=== PATIENT | male | born 1935 | race Caucasian/White ===

== ENCOUNTER 2017-01-20 13:58 | Emergency (ER) | payer OTHER ==
[2017-01-20 14:08] VITALS: BP 166/76; PULSE 83; TEMP 98.6; BMI 25.7
--- NOTE | 2017-01-20 14:09 | PDOC ---
Rapid Medical Evaluation Chief Complaint: Urinary Problem Time Seen by Provider: 01/20/17 14:07 Medical Evaluation: Allergies Allergy/AdvReac Type Severity Reaction Status Date / Time No Known Allergies Allergy Verified 01/20/17 14:05 01/20/17 14:08 81 year old male with no known medical history (hasn't seen a doctor for 20 yrs ) presenting with burning on urination and difficulty urinating since July, worse today. No hematuria. One episode of "cold sweats" two days ago. No pain. Afebrile. -Ua/culture ordered -To FT for further evaluation
[2017-01-20 15:09] LABS: URINE APPEARANCE CLOUDY; URINE BILIRUBIN NEGATIVE (NEGATIVE); URINE COLOR DKYELLOW; URINE GLUCOSE (UA) NEGATIVE (NEGATIVE); URINE KETONE NEGATIVE (NEGATIVE); URINE NITRITE NEGATIVE (NEGATIVE); URINE UROBILINOGEN NEGATIVE E.U./dl (0.2-1.0)
[2017-01-20 15:16] LABS: URINE BLOOD 1+ (NEGATIVE); URINE LEUK ESTERASE 3+ (NEGATIVE); URINE PROTEIN 2+ (NEGATIVE)
[2017-01-20 15:20] LABS: URINE MUCUS FEW; URINE RBC 42 /hpf (0-3); URINE WBC 1365 /hpf (3-5)
--- NOTE | 2017-01-20 15:43 | PDOC ---
History of Present Illness - General Chief Complaint: Urinary Problem Stated Complaint: Urinary Problem Time Seen by Provider: 01/20/17 14:07 History Source: Patient, Family - History of Present Illness Timing/Duration: reports: getting worse Past History - Past Medical History Allergies/Adverse Reactions: Allergies Allergy/AdvReac Type Severity Reaction Status Date / Time No Known Allergies Allergy Verified 01/20/17 14:05 Home Medications: Ambulatory Orders Cephalexin [Keflex] 500 mg PO BID #14 capsule 01/20/17 Other medical history: NONE - Psycho/Social/Smoking Cessation Hx Anxiety: No Suicidal Ideation: No Smoking History: Never smoked Have you smoked in the past 12 months: No Information on smoking cessation initiated: No Hx Alcohol Use: No Drug/Substance Use Hx: No Substance Use Type: None Review of Systems - Review of Systems Constitutional: No: Fever, Weakness, Unexplained wgt Loss ABD/GI: No: Nausea, Vomiting : Yes: Dysuria, Frequency. No: Flank Pain, Hematuria, Testicular Mass, Testicular Swelling, Testicular Pain *Physical Exam - Vital Signs Last Vital Signs Temp Pulse Resp BP Pulse Ox 98.6 F 83 18 166/76 100 01/20/17 14:06 01/20/17 14:06 01/20/17 14:06 01/20/17 14:06 01/20/17 14:06 - Physical Exam General Appearance: Yes: Appropriately Dressed. No: Apparent Distress HEENT: positive: Normal Voice Neck: positive: Supple Respiratory/Chest: negative: Respiratory Distress Gastrointestinal/Abdominal: positive: Soft. negative: Tender Musculoskeletal: negative: CVA Tenderness Integumentary: positive: Dry, Warm Neurologic: positive: Fully Oriented, Alert, Normal Mood/Affect ED Treatment Course - LABORATORY CBC & Chemistry Diagram: 01/20/17 16:19 01/20/17 16:19 - ADDITIONAL ORDERS Additional order review: Laboratory Results 01/20/17 14:45 Urine Color Dkyellow Urine Appearance Cloudy Urine pH 8.0 Urine Protein 2+ H Urine Glucose (UA) Negative Urine Ketones Negative Urine Blood 1+ H Urine Nitrite Negative Urine Bilirubin Negative Urine Urobilinogen Negative Ur Leukocyte Esterase 3+ H Urine RBC 42 Urine WBC 1365 Triple Phos Crystals Rare Urine Mucus Few Medical Decision Making - Medical Decision Making 01/20/17 15:36 81 yo M, no known pmhx (has not seen a doctor in > 20 years), brought in by family for evaluation of discomfort with urination and associated hesitancy and frequency x 7 months. Patient states symptoms are gradually getting worse and so decided to come in for evaluation. Patient states he has never been evaluated for symptoms in the past. Denies any hematuria, testicular pain, swelling, urethral discharge, abdominal or back pain, nausea, vomiting, fever, chills or unexplained weight loss. Patient states he currently does not have a primary care physician See exam Chronic dysuria/hesitancy No medical eval in the past Concern for ?BPH given hx, r/o uti Will need outside w/u to r/o possible malignancy Well kyle and stable w/ unremarkable exam -ua/cx -labs -dispo pending 01/20/17 15:47 01/20/17 17:00 Labs unremarkable including creatinine. Dc w/ abx and referral to f/u this week 01/20/17 17:03 *DC/Admit/Observation/Transfer Diagnosis at time of Disposition: Urinary hesitancy - Discharge Dispostion Disposition: HOME Condition at time of disposition: Good - Prescriptions Prescriptions: Cephalexin [Keflex] 500 mg PO BID #14 capsule - Referrals Referrals: Kate Estrella MD [Primary Care Provider] - Manny Guerrero MD., [Staff Physician] - - Patient Instructions Printed Discharge Instructions: Urinary Tract Infection Additional Instructions: Your symptoms are possibly due to an enlarged prostate. You will need to follow up with urology for further evaluation. There was a possible sign of infection in your urine and you were started on antibiotics. Take medications as directed. Return to ER for worsening of symptoms, especially if you are unable to urinate
[2017-01-20 16:27] LABS: EOSINOPHIL 1.6 % (0-4.5); MCH 28.3 pg (25.7-33.7); MCHC 32.9 g/dl (32.0-35.9); MEAN CELL VOLUME 86.1 fl (80-96); MEAN PLT VOLUME 6.9 fl (7.5-11.1); NEUTROPHILS 79.2 % (42.8-82.8); PLATELET COUNT 378 K/MM3 (134-434); RDW 15.4 % (11.9-15.9); WHITE BLOOD COUNT 10.3 K/mm3 (4.0-10.0)
[2017-01-20 16:53] LABS: ALBUMIN 3.4 g/dl (3.4-5.0); BILIRUBIN,TOTAL 0.6 mg/dL (0.2-1.0); CALCIUM 8.5 mg/dL (8.5-10.1); COCKROFT - GAULT 43.56; CREATININE 1.3 mg/dL (0.7-1.3)
--- NOTE | 2017-01-20 17:18 | PDOC ---
*Physical Exam - Vital Signs Last Vital Signs Temp Pulse Resp BP Pulse Ox 98.6 F 83 18 166/76 100 01/20/17 14:06 01/20/17 14:06 01/20/17 14:06 01/20/17 14:06 01/20/17 14:06 ED Treatment Course - LABORATORY CBC & Chemistry Diagram: 01/20/17 16:19 01/20/17 16:19 - ADDITIONAL ORDERS Additional order review: Laboratory Results 01/20/17 01/20/17 16:19 14:45 Sodium 138 Potassium 4.6 Chloride 104 Carbon Dioxide 25 Anion Gap 9 BUN 25 H Creatinine 1.3 Creat Clearance w eGFR 52.85 Random Glucose 94 Calcium 8.5 Total Bilirubin 0.6 AST 36 ALT 38 Alkaline Phosphatase 54 Total Protein 7.0 Albumin 3.4 Urine Color Dkyellow Urine Appearance Cloudy Urine pH 8.0 Urine Protein 2+ H Urine Glucose (UA) Negative Urine Ketones Negative Urine Blood 1+ H Urine Nitrite Negative Urine Bilirubin Negative Urine Urobilinogen Negative Ur Leukocyte Esterase 3+ H Urine RBC 42 Urine WBC 1365 Triple Phos Crystals Rare Urine Mucus Few 01/20/17 16:19 RBC 4.61 MCV 86.1 MCHC 32.9 RDW 15.4 MPV 6.9 L Neutrophils % 79.2 Lymphocytes % 10.6 Monocytes % 7.6 Eosinophils % 1.6 Basophils % 1.0 *DC/Admit/Observation/Transfer Diagnosis at time of Disposition: Urinary hesitancy - Discharge Dispostion Disposition: HOME Condition at time of disposition: Good - Prescriptions Prescriptions: Cephalexin [Keflex] 500 mg PO BID #14 capsule - Referrals Referrals: Manny Guerrero MD., [Staff Physician] - Kate Estrella MD [Primary Care Provider] - - Patient Instructions Printed Discharge Instructions: Urinary Tract Infection Additional Instructions: Your symptoms are possibly due to an enlarged prostate. You will need to follow up with urology for further evaluation. There was a possible sign of infection in your urine and you were started on antibiotics. Take medications as directed. Return to ER for worsening of symptoms, especially if you are unable to urinate - Post Discharge Activity
== END 2017-01-20 17:17 | disposition home or self-care (01) ==
LOC: JERFT 13:58
DX: R39.11 Hesitancy of micturition (principal)
CPT/HCPCS: 36415; 80053; 81003; 81015; 85025; 87086; 87186; 99281-25

== ENCOUNTER 2018-10-31 12:57 | Inpatient (IN) | payer OTHER ==
--- NOTE | 2018-10-31 13:50 | PDOC ---
History of Present Illness - General Chief Complaint: Edema Stated Complaint: GROIN PAIN Time Seen by Provider: 10/31/18 13:32 History Source: Patient, Family (Nephew and nephew's fiance present at bedside.) Exam Limitations: No Limitations - History of Present Illness Initial Comments: HPI: 83 y/o male presenting to [facility] ER complaining of leg swelling, penis swelling, and shortness of breath. Pt states the symptoms started several months ago. Became concerned when noticing the genital swelling this morning. Endorses orthopnea, paroxysmal nocturnal dyspnea, and progressive bilateral lower extremity swelling. Sleeps on the floor most days. Has not follow up with PCP, Dr. Estrella, in several years. Has a h/o of HTN but has not taken medication in a long time. PCP: Dr. Luis Enrique Estrella Social Hx: - Works at [employer] - Tobacco: Denies - EtOH: Denies - Street drugs: Denies Medical Hx: - HTN, not medically managed - BPH s/p TURP Past History - Past Medical History Allergies/Adverse Reactions: Allergies Allergy/AdvReac Type Severity Reaction Status Date / Time No Known Allergies Allergy Verified 10/31/18 13:04 Home Medications: Ambulatory Orders NK [No Known Home Medication] 10/31/18 COPD: No HTN: Yes - Surgical History Other Surgical History: TURP - Suicide/Smoking/Psychosocial Hx Smoking History: Never smoked Have you smoked in the past 12 months: No Hx Alcohol Use: No Drug/Substance Use Hx: No Substance Use Type: None Review of Systems - Review of Systems Able to Perform ROS?: Yes Comments:: In addition to that documented in the HPI above, the additional ROS was obtained : Constitutional: Denies fevers or chills Head: Denies vision changes ENMT: Denies sore throat CV: Denies chest pain Resp: Per HPI GI: Denies vomiting or diarrhea : Denies painful urination MSK: Denies recent trauma Skin: Denies new rashes Neuro: Denies new numbness or tingling or weakness Endocrine: Denies polyuria Heme: Denies bleeding or bruising *Physical Exam - Vital Signs Last Vital Signs Temp Pulse Resp BP Pulse Ox 97.7 F 97 H 24 H 199/83 H 97 10/31/18 13:04 10/31/18 13:04 10/31/18 13:04 10/31/18 13:04 10/31/18 13:04 - Physical Exam Comments: Constitutional: Well-developed, well-nourished elderly adult male in no acute distress or obvious discomfort. Found semi-fowlers on hospital bed. Alert and oriented x4. Answered all questions appropriately and completely. Speech was non -labored, non-pressured. Observed walking through the department unassisted without obvious difficulty. Head: Normocephalic. No obvious external signs of trauma. Eyes: Sclerae white. Ears: Hearing grossly intact. Nose: No nasal discharge. Neck: Supple, trachea is midline. Cardiovascular / Chest: Regular rate and regular rhythm. No murmur, rubs, clicks, or gallops. Peripheral pulses: radial pulses full. 3+ pitting edema bilaterally to above knees and into the scrotum and penile shaft. Respiratory: Breathing unlabored. Equal chest rise and fall. Clear to auscultation bilaterally. Decreased in the bilateral lower lobes. Gastrointestinal: abdomen is soft, non-tender, non-distended. Hepatomegaly. No positive fluid wave. No keputs. Neuro: Alert and oriented. Moving all four extremities spontaneously. Gait normal. Skin: Warm, dry, and intact. Psych: Affect: appropriate. Mood: normal. : Genital exam revealed normally developed male genitalia. Circumcised penis. Generalized edema to scrotum and penis. Moderate Sedation - Procedure Monitoring Vital Signs: Procedure Monitoring Vital Signs Temperature 97.7 F 10/31/18 13:04 Pulse Rate 97 H 10/31/18 13:04 Respiratory Rate 24 H 10/31/18 13:04 Blood Pressure 199/83 H 10/31/18 13:04 O2 Sat by Pulse Oximetry (%) 97 10/31/18 13:04 ED Treatment Course - LABORATORY CBC & Chemistry Diagram: 10/31/18 14:14 10/31/18 14:14 Medical Decision Making - Medical Decision Making *Reviewed vital signs, nursing notes, and prior visit documentation (if available). 83 y/o male presenting with progressively worsening lower extremity edema, SOB, paroxysmal nocturnal dyspnea, and orthopnea. H/o of HTN but not adherent with medication. Poor medical follow up. Concern for acute on chronic CHF in setting of uncontrolled hypertension. CXR revealed blunting of costophrenic angles with increased vascular congestion per ED wet read. BNP significantly elevated. Troponin mildly elevated. EKG revealed ST elevation of 1mm in V2 and V3 with depression in V5 and V6. Does not meet STEMI criteria. Pt is also without chest pain or acute SOB. Suspect troponin elevation is secondary to demand. Low suspicion for acute ACS. 15:07 Telephone consultation with ALEC Simpson. Verbally appraised of the pts HPI, ED course, and current plan of management. Will admit pt to telemetry on inpatient status for Dr. Estrella. No additional orders requested. 15:[address] Hensley of cardiology service. Verbally appraised of the pts HPI, ED course, and current plan of management. Request pt be administered ASA, Lipitor, Lasix, and Metoprolol. May consider amlodipine if BP remains elevated. Will evaluate the pt. Consult order placed. *DC/Admit/Observation/Transfer Diagnosis at time of Disposition: Elevated troponin, Shortness of breath, Bilateral lower extremity edema, Scrotal edema, Elevated brain natriuretic peptide (BNP) level - Discharge Dispostion Condition at time of disposition: Fair Decision to Admit order: Yes - Referrals - Patient Instructions - Post Discharge Activity
--- NOTE | 2018-10-31 14:21 | PDOC ---
Attending Attestation - HPI HPI: 10/31/18 14:51 The patient is a 83 year old male with a significant past medical history of hypertension (non compliant with meds) who presents to the emergency department with leg swelling, penis swelling, and shortness of breath since earlier today. The patient reports that his symptoms began several months ago. He states that he became concerned when noticing the genital swelling this morning. Endorses orthopnea, paroxysmal nocturnal dyspnea, and progressive bilateral lower extremity swelling. Sleeps on the floor most days. Has not follow up with PCP, Dr. Estrella, in several years. PCP: Dr. Luis Enrique Estrella <Christopher Good - Last Filed: 10/31/18 14:51> - Resident Resident Name: Otis Cope - ED Attending Attestation I have performed the following: I have examined & evaluated the patient, The case was reviewed & discussed with the resident, I agree w/resident's findings & plan, Exceptions are as noted - Physicial Exam PE: 10/31/18 15:30 GENERAL: The patient is in no acute distress. ENT: Ears normal, nares patent, oropharynx clear without exudates. Moist mucous membranes. NECK: Normal range of motion, supple, no nuchal rigidity LUNGS: Breath sounds equal, basilar rhonchi, No wheezes HEART: Regular rate and rhythm, normal S1 and S2 without murmur, rub or gallop. ABDOMEN: Soft, nontender, normoactive bowel sounds. EXTREMITIES: Normal range of motion, bilateral lower extremity 3+ pitting edema. NEUROLOGICAL: Cranial nerves II through XII grossly intact. Normal speech. No focal neurological deficits. SKIN: Warm, Dry, normal turgor, no rashes or lesions noted. - Critical Care Time Total Critical Care Time: 60 Critical Care Statement: The care of this patient involved high complexity decision making to prevent further life threatening deterioration of the patient 's condition and/or to evaluate & treat vital organ system(s) failure or risk of failure. - Medical Decision Making 10/31/18 15:32 83 yo M presenting to the ER due to shortness of breath No chest pain Symptoms have been present for the past 3 days Pt states last night he had difficulty sleeping, he was restless 10/31/18 15:33 DD: CHF, ACS, Renal insufficiency Will do: Labs EKG Cardiology Laboratory Tests 10/31/18 10/31/1810/31/19 14:14 14:14 14:14 WBC 10.2 H Hgb 16.8 Hct 48.9 D Plt Count 261 D Sodium 137 Potassium 4.4 Chloride 106 Carbon Dioxide 23 BUN 24 H Creatinine 1.4 H Random Glucose 84 Creatine Kinase 510 H Creatine Kinase Index 4.0 CK-MB (CK-2) 20.9 H Troponin I 0.98 H* B-Natriuretic Peptide 61267.2 H Urine Blood Urine Nitrite Ur Leukocyte Esterase Urine WBC (Auto) Urine RBC (Auto) Urine Bacteria (Auto) 10/31/18 14:33 WBC Hgb Hct Plt Count Sodium Potassium Chloride Carbon Dioxide BUN Creatinine Random Glucose Creatine Kinase Creatine Kinase Index CK-MB (CK-2) Troponin I B-Natriuretic Peptide Urine Blood 1+ Urine Nitrite Negative Ur Leukocyte Esterase 1+ Urine WBC (Auto) 43 Urine RBC (Auto) 6 Urine Bacteria (Auto) 2.196 10/31/18 15:37 Trop elevated Cardiology consulted Recommends po antihypertensives Pt has no chest pain Will admit to tele <Maryam Fernández - Last Filed: 11/06/18 10:25> Attestations - Attestations 10/31/18 14:52 Documentation prepared by Christopher Good, acting as medical assisting instructor for Maryam Fernández MD. <Christopher Good - Last Filed: 10/31/18 14:51>
[2018-10-31 14:39] LABS: ALBUMIN 3.9 g/dl (3.4-5.0); ALK PHOS 97 U/L (45-117); ANION GAP 8 MMOL/L (8-16); BILIRUBIN,TOTAL 1.7 mg/dL (0.2-1); BLOOD UREA NITROGEN 24 mg/dL (7-18); CALCIUM 9.1 mg/dL (8.5-10.1); CHLORIDE 106 mmol/L (98-107); CO2 23 mmol/L (21-32); CREATININE 1.4 mg/dL (0.55-1.3); GLUCOSE,RANDOM 84 mg/dL (74-106); POTASSIUM 4.4 mmol/L (3.5-5.1); SGOT/AST 45 U/L (15-37); SGPT/ALT 33 U/L (13-61); SODIUM 137 mmol/L (136-145); TOT PROT 7.1 g/dl (6.4-8.2)
[2018-10-31 14:44] LABS: BASO % 0.8 % (0-2.0); EOS % 0.4 % (0-4.5); HEMATOCRIT 48.9 % (35.4-49); HEMOGLOBIN 16.8 GM/dL (11.7-16.9); LYMPH % 7.6 % (8-40); MCH 31.2 pg (25.7-33.7); MCHC 34.3 g/dl (32.0-35.9); MEAN CELL VOLUME 90.8 fl (80-96); MEAN PLT VOLUME 8.2 fl (7.5-11.1); NEUT % 86.2 % (42.8-82.8); PLATELET COUNT 261 K/MM3 (134-434); RBC 5.38 M/mm3 (4.00-5.60); RDW 17.8 % (11.9-15.9); WHITE BLOOD COUNT 10.2 K/mm3 (4.0-10.0)
[2018-10-31 14:57] LABS: EPI CELLS 1.4 /HPF (0-5); HYALINE CASTS 5 /hpf (0-8); PH,URINE 5.5 (5.0-8.0); URINE APPEARANCE CLEAR; URINE BACTERIA 2.196 /hpf (NEGATIVE); URINE BILIRUBIN NEGATIVE (<2.0 mg/dL); URINE COLOR YELLOW; URINE GLUCOSE (UA) NEGATIVE (NEGATIVE); URINE KETONE TRACE (NEGATIVE); URINE LEUK ESTERASE 1+ (NEGATIVE); URINE NITRITE NEGATIVE (NEGATIVE); URINE PROTEIN 3+ (NEGATIVE); URINE RBC 6 /hpf (0-4); URINE WBC 43 /hpf (0-5)
[2018-10-31] MEDS ORDERED: FUROSEMIDE 40 MG/4 ML INJECTABLE VIAL IVPUSH ONE (15:13)
[2018-10-31] MEDS ORDERED: METOPROLOL TARTRATE 50 MG TABLET (FP) PO ONE (15:13)
[2018-10-31] MEDS ORDERED: ASPIRIN 81 MG CHEWABLE TABLETS PO ONE (15:13)
[2018-10-31] MEDS ORDERED: ATORVASTATIN CA 40 MG TABLET (FP) PO ONE (15:13)
[2018-10-31] MEDS ORDERED: ATORVASTATIN CA 10 MG TABLET (FP) ONE (15:17)
[2018-10-31] MEDS ORDERED: ASPIRIN 81 MG CHEWABLE TABLETS ONE (15:17)
[2018-10-31] MEDS ORDERED: METOPROLOL TARTRATE 50 MG TABLET (FP) ONE (15:17)
[2018-10-31] MEDS ORDERED: FUROSEMIDE 40 MG/4 ML INJECTABLE VIAL ONE (15:17)
[2018-10-31 16:37] LABS: INR 1.38 (0.82-1.09); PROTHROMBIN TIME (PATIENT) 15.3 SEC (10.2-13.0)
--- NOTE | 2018-10-31 17:04 | EKG ---
Test Reason : Blood Pressure : / mmHG Vent. Rate : 092 BPM Atrial Rate : 092 BPM P-R Int : 166 ms QRS Dur : 094 ms QT Int : 404 ms P-R-T Axes : 059 -29 104 degrees QTc Int : 499 ms SINUS RHYTHM WITH OCCASIONAL PREMATURE VENTRICULAR COMPLEXES AND PREMATURE ATRIAL COMPLEXES POSSIBLE LEFT ATRIAL ENLARGEMENT PROLONGED QT ABNORMAL ECG NO PREVIOUS ECGS AVAILABLE Confirmed by MAGDI GARCIAS MD ([id number]) on 10/31/2018 5:03:58 PM Referred By: Confirmed By:MAGDI GARCIAS MD
--- NOTE | 2018-10-31 19:56 | HP ---
Admitting History and Physical - Admission Chief Complaint: SOB and B/L LE swelling History of Present Illness: Patient is an 83 y/o male with past medical history of HTN (non-compliant with meds) who presented to ER with complaints of worsening SOB with exertion for 3 weeks and worsening lower extremity swelling for 1 week. Patient became alarmed this morning when he noticed penile swelling. Has not followed up with PCP Dr. Estrella in several years. History Source: Patient Limitations to Obtaining History: No Limitations - Past Medical History Cardiovascular: Yes: HTN - Smoking History Smoking history: Never smoked Have you smoked in the past 12 months: No - Alcohol/Substance Use Hx Alcohol Use: No - Social History Usual Living Arrangement: Yes: Other (with sister) ADL: Independent Home Medications - Allergies Allergies/Adverse Reactions: Allergies Allergy/AdvReac Type Severity Reaction Status Date / Time No Known Allergies Allergy Verified 10/31/18 13:04 - Home Medications Home Medications: Ambulatory Orders NK [No Known Home Medication] 10/31/18 Review of Systems - Review of Systems Constitutional: reports: No Symptoms Eyes: reports: No Symptoms HENT: reports: No Symptoms Neck: reports: No Symptoms Cardiovascular: reports: Edema, Palpitations, Shortness of Breath Respiratory: reports: Cough, SOB, SOB on Exertion Gastrointestinal: reports: No Symptoms Genitourinary: reports: Other (hesistency) Musculoskeletal: reports: Muscle Weakness Integumentary: reports: No Symptoms Neurological: reports: No Symptoms Endocrine: reports: No Symptoms Hematology/Lymphatic: reports: No Symptoms Psychiatric: reports: No Symptoms Physical Examination Vital Signs: Vital Signs Temperature 97.7 F 10/31/18 13:04 Pulse Rate 71 10/31/18 17:28 Respiratory Rate 16 10/31/18 16:25 Blood Pressure 172/105 H 10/31/18 16:25 O2 Sat by Pulse Oximetry (%) 99 10/31/18 17:28 Constitutional: Yes: No Distress, Calm Eyes: Yes: Conjunctiva Clear HENT: Yes: Atraumatic Cardiovascular: Yes: Regular Rate and Rhythm Respiratory: Yes: On Nasal O2, Rhonchi (B/L) Gastrointestinal: Yes: Normal Bowel Sounds, Soft Renal/: Yes: Other (penile swelling) Extremities: Yes: WNL Edema: Yes Edema: LLE: 3+, RLE: 3+ Neurological: Yes: Alert, Oriented Psychiatric: Yes: Alert, Oriented Labs: CBC, BMP 10/31/18 14:14 10/31/18 14:14 Troponin, BNP 10/31/18 10/31/18 10/31/18 14:14 14:14 17:10 Troponin I 0.98 H* 0.97 H* B-Natriuretic Peptide 27777.2 H Imaging - Results Chest X-ray: Report Reviewed Problem List - Problems (1) Bilateral lower extremity edema Assessment/Plan: -start on furosemide IVP--will monitor renal function -2/2 new onset CHF? -cardiology and pulm consult placed -echo ordered -BNP ,615--will monitor for downtrend -1L fluid restriction -daily weights -strict I&O Code(s): R60.0 - LOCALIZED EDEMA (2) Elevated brain natriuretic peptide (BNP) level Assessment/Plan: -BNP 615--will monitor for downtrend -cardiology and pulmonary consult placed Code(s): R79.89 - OTHER SPECIFIED ABNORMAL FINDINGS OF BLOOD CHEMISTRY (3) Elevated troponin Assessment/Plan: trop x 2 0.98, 0.97 -tele monitoring -cardio consult Code(s): R74.8 - ABNORMAL LEVELS OF OTHER SERUM ENZYMES (4) Shortness of breath Assessment/Plan: -pulm consult placed -O2 via NC prn for SOB -albuterol neb prn -keep SpO2 >90% Code(s): R06.02 - SHORTNESS OF BREATH (5) Urinary hesitancy Assessment/Plan: -check PSA -pt sts had prostate scraping in past--bph? Code(s): R39.11 - HESITANCY OF MICTURITION (6) HTN (hypertension) Assessment/Plan: -cardiology consult placed -furosemide IVP -start on amlodipine Code(s): I10 - ESSENTIAL (PRIMARY) HYPERTENSION Assessment/Plan see problem list dvt ppx
[2018-10-31] MEDS ORDERED: HEPARIN NA (PORCINE) 5,000 UNITS/ML 1ML VIAL SQ SCH (22:00)
[2018-11-01] MEDS ORDERED: METOPROLOL TARTRATE 25 MG TABLET (FP) PO SCH (06:30)
[2018-11-01] MEDS ORDERED: ASPIRIN COATED 81 MG TABLET.EC PO SCH (06:30)
[2018-11-01] MEDS: FUROSEMIDE 40 MG/4 ML INJECTABLE VIAL IVPUSH SCH (06:50)
[2018-11-01] MEDS: HEPARIN NA (PORCINE) 5,000 UNITS/ML 1ML VIAL SQ SCH ×2 (06:50→22:08)
[2018-11-01] MEDS: amLODIPine BESYLATE 2.5 MG TABLET (FP) PO SCH (06:50)
[2018-11-01] MEDS: ASPIRIN COATED 81 MG TABLET.EC PO SCH (06:50)
[2018-11-01 07:36] LABS: BASO % 0.7 % (0-2.0); EOS % 0.9 % (0-4.5); HEMATOCRIT 46.8 % (35.4-49); LYMPH % 9.4 % (8-40); MCH 30.9 pg (25.7-33.7); MCHC 34.3 g/dl (32.0-35.9); MEAN CELL VOLUME 90.2 fl (80-96); MEAN PLT VOLUME 8.1 fl (7.5-11.1); MONO % 6.2 % (3.8-10.2); NEUT % 82.8 % (42.8-82.8); PLATELET COUNT 240 K/MM3 (134-434); RBC 5.18 M/mm3 (4.00-5.60); RDW 17.7 % (11.9-15.9); WHITE BLOOD COUNT 8.4 K/mm3 (4.0-10.0)
[2018-11-01 07:42] LABS: ALBUMIN 3.3 g/dl (3.4-5.0); ALK PHOS 87 U/L (45-117); ANION GAP 8 MMOL/L (8-16); BILIRUBIN,TOTAL 1.6 mg/dL (0.2-1); BLOOD UREA NITROGEN 26 mg/dL (7-18); CALCIUM 8.6 mg/dL (8.5-10.1); CHLORIDE 107 mmol/L (98-107); CHOLESTEROL 155 mg/dL (50-200); CO2 25 mmol/L (21-32); CREATININE 1.6 mg/dL (0.55-1.3); GLUCOSE,RANDOM 75 mg/dL (74-106); HDL CHOLESTEROL 48 mg/dL (40-60); MAGNESIUM 2.3 mg/dL (1.8-2.4); N-TERMINAL BNP 18448.6 pg/ml (5-450); PHOSPHOROUS 3.7 mg/dL (2.5-4.9); POTASSIUM 3.9 mmol/L (3.5-5.1); SGOT/AST 33 U/L (15-37); SGPT/ALT 27 U/L (13-61); SODIUM 140 mmol/L (136-145); TOT PROT 6.2 g/dl (6.4-8.2); TRIGLYCERIDES 64 mg/dL (0-150)
--- NOTE | 2018-11-01 11:22 | CON.CARD ---
Consult Consult Specialty:: Cardiology Referred by:: Fei Reason for Consultation:: CHF. +Troponins - History of Present Illness Chief Complaint: SOB. LE edema and scrotal edema History of Present Illness: Mr. Bhakta is a 83 year old male with a pmhx of htn (off meds for years) and ? prostate issue who has not seen doctors in years who presents with LE edema, scrotal edema, and sob. Patient says that for last few months he has been noticing sob and orthopnea which has been progressing. Also noticed LE edema which was worsening. He came to the ER because he noticed scrotal edema. No chest pain at all and no worsening sob or palpitations day of admission. Currently very comfortable BNP 14k Trop 1.0 Ck 500 -> 253 Cr 1.4 ->1.6 EKG: sinus rhythm with pvc's, lateral ST abnormalities BP very elevated at 190s-108 on admission. - History Source History Provided By: Patient, Medical Record - Past Medical History Cardio/Vascular: Yes: HTN - Alcohol/Substance Use Hx Alcohol Use: No - Smoking History Smoking history: Never smoked Have you smoked in the past 12 months: No - Social History ADL: Independent Home Medications - Allergies Allergies/Adverse Reactions: Allergies Allergy/AdvReac Type Severity Reaction Status Date / Time No Known Allergies Allergy Verified 10/31/18 13:04 - Home Medications Home Medications: Ambulatory Orders NK [No Known Home Medication] 10/31/18 Vital Signs: Vital Signs Temperature 98.2 F 11/01/18 10:57 Pulse Rate 72 11/01/18 10:57 Respiratory Rate 20 11/01/18 10:57 Blood Pressure 169/94 11/01/18 10:57 O2 Sat by Pulse Oximetry (%) 98 11/01/18 09:00 Constitutional: Yes: No Distress Respiratory: Yes: Rales (bibasilar ales) Gastrointestinal: Yes: Soft Cardiovascular: Yes: Regular Rate and Rhythm JVD: Yes Carotid Bruit: No PMI: Non-Displaced Heart Sounds: Yes: S1, S2 Murmur: Yes: Systolic Murmur (+2/6 HSM apex) Edema: Yes Edema: LLE: 1+, RLE: 1+ - Other Data Labs, Other Data: CBC, BMP 11/01/18 06:00 11/01/18 06:00 INR, PTT INR 1.38 (0.82-1.09) H 10/31/18 14:14 Troponin, BNP 10/31/18 10/31/18 10/31/18 14:14 14:14 17:10 Troponin I 0.98 H* 0.97 H* B-Natriuretic Peptide 46261.2 H 11/01/18 11/01/18 00:25 06:00 Troponin I 1.00 H* 1.06 H* B-Natriuretic Peptide 92744.6 H Troponin, BNP 10/31/18 10/31/18 10/31/18 14:14 14:14 17:10 Troponin I 0.98 H* 0.97 H* B-Natriuretic Peptide 57813.2 H 11/01/18 11/01/18 00:25 06:00 Troponin I 1.00 H* 1.06 H* B-Natriuretic Peptide 81822.6 H Imaging - Results Chest X-ray: Report Reviewed EKG: Image Reviewed Assessment/Plan Mr. Bhakta is a 83 year old male with a pmhx of htn (off meds for years) and ? prostate issue who has not seen doctors in years who presents with LE edema, scrotal edema, and sob. Patient says that for last few months he has been noticing sob and orthopnea which has been progressing. Also noticed LE edema which was worsening. He came to the ER because he noticed scrotal edema. No chest pain at all and no worsening sob or palpitations day of admission. Currently very comfortable BNP 14k Trop 1.0 Ck 500 -> 253 Cr 1.4 ->1.6 EKG: sinus rhythm with pvc's, lateral ST abnormalities BP very elevated at 190s-108 on admission. 1) Systolic CHF and positive cardiac enzymes. -Patient appears to have been having worsening CHF symptoms last few months. His troponin is likely due to CHF as level 1.0 is pretty much unchanged on 3 checks but possible ischemic component. CK was 500 on admission than 253. EKG with lateral ST abnormalities. Patient with no chest pain and no acute sob. He came in cause noticed scrotal swelling. For this reason and since bp's very uncontrolled will not acutely anticoagluate. Monitor on tele -Continue furosemide IV 40mg daily and monitor bun/cr and lytes along with I/O's -Would start metoprolol xl 50mg daily -Currently on amlodipine 2.5mg daily for bp. Plan for echocardiogram to evaluate LVEF and mitral valve. Will likely plan to change amlodipine to arjun-i/ arb once can establish that his Cr is stable since no previous levels and today is 1.6 -Will likely need an eventual ischemic evaluation. Aspirin 81mg daily. Atorvastatin 40mg daily. Will follow patient with you
--- NOTE | 2018-11-01 14:17 | CON.PULM ---
Consult Consult Specialty:: PULMONARY Referred by:: DAVI Reason for Consultation:: SOB - History of Present Illness Chief Complaint: SOB History of Present Illness: 83 y/o male presenting to [facility] complaining of leg and scrotal edema, and shortness of breath. Pt states the symptoms started several months ago. Became concerned when noticing the genital swelling this morning. Endorses orthopnea, paroxysmal nocturnal dyspnea, and progressive bilateral lower extremity swelling. Sleeps on the floor most days. Has not follow up with PCP, Dr. Estrella , in several years. Has a h/o of HTN but has not taken medication in a long time. 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 No: AFIB Pulmonary: No: COPD Gastrointestinal: No: Ascites Hepatobiliary: No: Cirrhosis Renal/: No: Renal Failure Heme/Onc: No: Anemia - Alcohol/Substance Use Hx Alcohol Use: No - Smoking History Smoking history: Never smoked Have you smoked in the past 12 months: No - Social History ADL: Independent Home Medications - Allergies Allergies/Adverse Reactions: Allergies Allergy/AdvReac Type Severity Reaction Status Date / Time No Known Allergies Allergy Verified 10/31/18 13:04 - Home Medications Home Medications: Ambulatory Orders NK [No Known Home Medication] 10/31/18 Family Disease History - Family Disease History Family History: Unremarkable Review of Systems - Review of Systems Cardiovascular: reports: Edema. denies: Chest Pain Respiratory: reports: Exercise Intolerance, Orthopnea, SOB on Exertion. denies : Hemoptysis, Wheezing Physical Exam Vital Sings: Vital Signs Temperature 98.2 F 11/01/18 10:57 Pulse Rate 72 11/01/18 10:57 Respiratory Rate 20 11/01/18 10:57 Blood Pressure 169/94 11/01/18 10:57 O2 Sat by Pulse Oximetry (%) 98 11/01/18 09:00 Constitutional: Yes: Calm Eyes: Yes: EOM Intact HENT: Yes: Normocephalic Neck: Yes: Trachea Midline Cardiovascular: Yes: S1, S2 Respiratory: Yes: Diminished Gastrointestinal: Yes: Normal Bowel Sounds Renal/: Yes: Scrotal Edema Edema: LLE: 2+, RLE: 2+ Labs: CBC, BMP 11/01/18 06:00 11/01/18 06:00 Imaging - Results Chest X-ray: Report Reviewed, Image Reviewed EKG: Report Reviewed, Image Reviewed Problem List - Problems (1) CHF (congestive heart failure) Code(s): I50.9 - HEART FAILURE, UNSPECIFIED (2) Bilateral lower extremity edema Code(s): R60.0 - LOCALIZED EDEMA (3) Elevated brain natriuretic peptide (BNP) level Code(s): R79.89 - OTHER SPECIFIED ABNORMAL FINDINGS OF BLOOD CHEMISTRY (4) Elevated troponin Code(s): R74.8 - ABNORMAL LEVELS OF OTHER SERUM ENZYMES (5) HTN (hypertension) Code(s): I10 - ESSENTIAL (PRIMARY) HYPERTENSION (6) Scrotal edema Code(s): N50.89 - OTHER SPECIFIED DISORDERS OF THE MALE GENITAL ORGANS (7) Shortness of breath Code(s): R06.02 - SHORTNESS OF BREATH Assessment/Plan chf/lvd may be on basis of nonischemic cardiomyopathy due to longstanding untreated htn would check echo cycle trops (elevation likely due to demand) diuretics/dvt prophylaxsis/o2 supplementation as needed daily weights will follow Hugo MORA MD
--- NOTE | 2018-11-01 17:21 | PN ---
Progress Note, Physician Chief Complaint: Systolic CHF Elevated Troponin - Current Medication List Current Medications: Active Medications Amlodipine Besylate (Norvasc -) 2.5 mg PO DAILY [facility] Last Admin: 11/01/18 06:50 Dose: 2.5 mg Aspirin (Ecotrin -) 81 mg PO DAILY [facility] Last Admin: 11/01/18 06:50 Dose: 81 mg Furosemide (Lasix Injection -) 40 mg IVPUSH DAILY [facility] Last Admin: 11/01/18 06:50 Dose: 40 mg Heparin Sodium (Porcine) (Heparin -) 5,000 unit SQ BID [facility] Last Admin: 11/01/18 06:50 Dose: 5,000 unit - Objective Vital Signs: Vital Signs Temperature 98.9 F 11/01/18 14:00 Pulse Rate 89 11/01/18 14:00 Respiratory Rate 20 11/01/18 14:00 Blood Pressure 146/70 11/01/18 14:00 O2 Sat by Pulse Oximetry (%) 98 11/01/18 09:00 Constitutional: Yes: No Distress, Calm Eyes: Yes: Conjunctiva Clear HENT: Yes: Atraumatic Cardiovascular: Yes: Regular Rate and Rhythm Respiratory: Yes: Regular, On Nasal O2, Rales Gastrointestinal: Yes: Normal Bowel Sounds, Soft Musculoskeletal: Yes: Muscle Weakness Extremities: Yes: WNL Edema: Yes Edema: LLE: 1+, RLE: 2+ Neurological: Yes: Alert, Oriented Psychiatric: Yes: Alert, Oriented Labs: CBC, BMP 11/01/18 06:00 11/01/18 06:00 INR, PTT INR 1.38 (0.82-1.09) H 10/31/18 14:14 CBC WBC 8.4 K/mm3 (4.0-10.0) 11/01/18 06:00 RBC 5.18 M/mm3 (4.00-5.60) 11/01/18 06:00 Hgb 16.0 GM/dL (11.7-16.9) 11/01/18 06:00 Hct 46.8 % (35.4-49) 11/01/18 06:00 MCV 90.2 fl (80-96) 11/01/18 06:00 MCH 30.9 pg (25.7-33.7) 11/01/18 06:00 MCHC 34.3 g/dl (32.0-35.9) 11/01/18 06:00 RDW 17.7 % (11.9-15.9) H 11/01/18 06:00 Plt Count 240 K/MM3 (134-434) 11/01/18 06:00 MPV 8.1 fl (7.5-11.1) 11/01/18 06:00 Absolute Neuts (auto) 7.0 K/mm3 (1.5-8.0) 11/01/18 06:00 Neutrophils % 82.8 % (42.8-82.8) 11/01/18 06:00 Lymphocytes % 9.4 % (8-40) D 11/01/18 06:00 Monocytes % 6.2 % (3.8-10.2) 11/01/18 06:00 Eosinophils % 0.9 % (0-4.5) D 11/01/18 06:00 Basophils % 0.7 % (0-2.0) 11/01/18 06:00 Nucleated RBC % 0 % (0-0) 11/01/18 06:00 Troponin, BNP 10/31/18 11/01/18 11/01/18 17:10 00:25 06:00 Troponin I 0.97 H* 1.00 H* 1.06 H* B-Natriuretic Peptide 13174.6 H Problem List - Problems (1) Bilateral lower extremity edema Assessment/Plan: -start on furosemide IVP--will monitor renal function -2/2 new onset CHF? -cardiology and pulm on board -echo ordered -BNP 18,000 -1L fluid restriction -daily weights -strict I&O Code(s): R60.0 - LOCALIZED EDEMA (2) Elevated brain natriuretic peptide (BNP) level Assessment/Plan: -BNP 18,000--will monitor for downtrend -cardiology and pulmonary on board Code(s): R79.89 - OTHER SPECIFIED ABNORMAL FINDINGS OF BLOOD CHEMISTRY (3) Elevated troponin Assessment/Plan: troponin 1.06-will continue to trend -tele monitoring -cardio on board Code(s): R74.8 - ABNORMAL LEVELS OF OTHER SERUM ENZYMES (4) Shortness of breath Assessment/Plan: -pulm consult placed -O2 via NC prn for SOB -albuterol neb prn -keep SpO2 >90% Code(s): R06.02 - SHORTNESS OF BREATH (5) Urinary hesitancy Assessment/Plan: -PSA pending -pt sts had prostate scraping in past--bph? Code(s): R39.11 - HESITANCY OF MICTURITION (6) HTN (hypertension) Assessment/Plan: -cardiology consult placed -furosemide IVP -start on amlodipine and metoprolol Code(s): I10 - ESSENTIAL (PRIMARY) HYPERTENSION (7) CHF (congestive heart failure) Assessment/Plan: -start on furosemide IVP--will monitor renal function -cardiology and pulm on board -echo ordered -BNP 18,000 -1L fluid restriction -daily weights -strict I&O Code(s): I50.9 - HEART FAILURE, UNSPECIFIED
[2018-11-01] MEDS ORDERED: RAMIPRIL 5 MG CAPSULE (FP) PO ONE (20:41)
[2018-11-02] MEDS: amLODIPine BESYLATE 2.5 MG TABLET (FP) PO SCH ×2 (06:28→11:06)
[2018-11-02 06:43] LABS: HEMATOCRIT 46.1 % (35.4-49); HEMOGLOBIN 16.1 GM/dL (11.7-16.9); MCH 31.7 pg (25.7-33.7); MCHC 34.9 g/dl (32.0-35.9); MEAN CELL VOLUME 90.8 fl (80-96); MEAN PLT VOLUME 8.2 fl (7.5-11.1); PLATELET COUNT 228 K/MM3 (134-434); RBC 5.07 M/mm3 (4.00-5.60); RDW 17.2 % (11.9-15.9); WHITE BLOOD COUNT 8.8 K/mm3 (4.0-10.0)
[2018-11-02 07:16] LABS: ALK PHOS 81 U/L (45-117); ANION GAP 9 MMOL/L (8-16); BLOOD UREA NITROGEN 31 mg/dL (7-18); CALCIUM 8.5 mg/dL (8.5-10.1); CHLORIDE 107 mmol/L (98-107); CO2 25 mmol/L (21-32); CREATININE 1.8 mg/dL (0.55-1.3); GLUCOSE,RANDOM 88 mg/dL (74-106); N-TERMINAL BNP 14323.5 pg/ml (5-450); POTASSIUM 3.9 mmol/L (3.5-5.1); SGOT/AST 28 U/L (15-37); SGPT/ALT 22 U/L (13-61); SODIUM 141 mmol/L (136-145); TOT PROT 5.8 g/dl (6.4-8.2)
--- NOTE | 2018-11-02 09:43 | PN ---
Progress Note, Physician - Current Medication List Current Medications: Active Medications Amlodipine Besylate (Norvasc -) 2.5 mg PO DAILY [facility] Last Admin: 11/02/18 06:28 Dose: 2.5 mg Aspirin (Ecotrin -) 81 mg PO DAILY [facility] Last Admin: 11/01/18 06:50 Dose: 81 mg Furosemide (Lasix Injection -) 40 mg IVPUSH DAILY [facility] Last Admin: 11/01/18 06:50 Dose: 40 mg Heparin Sodium (Porcine) (Heparin -) 5,000 unit SQ BID [facility] Last Admin: 11/01/18 22:08 Dose: 5,000 unit - Objective Vital Signs: Vital Signs Temperature 98.3 F 11/02/18 09:00 Pulse Rate 80 11/02/18 09:00 Respiratory Rate 20 11/02/18 09:00 Blood Pressure 150/99 11/02/18 09:00 O2 Sat by Pulse Oximetry (%) 97 11/02/18 09:00 Cardiovascular: Yes: Murmur, S1, S2 Respiratory: Yes: On Nasal O2, Rales Gastrointestinal: Yes: Normal Bowel Sounds, Soft Edema: Yes Labs: CBC, BMP 11/02/18 05:30 11/02/18 05:30 INR, PTT INR 1.38 (0.82-1.09) H 10/31/18 14:14 Problem List - Problems (1) CHF (congestive heart failure) Assessment/Plan: -furosemide IVP--will monitor renal function -cardiology -echo ordered -BNP 18,000 -1L fluid restriction -daily weights -strict I&O -BNP 18,000--will monitor for downtrend -O2 via NC prn for SOB -keep SpO2 >90% Code(s): I50.9 - HEART FAILURE, UNSPECIFIED (2) Elevated troponin Assessment/Plan: -troponin elevated-will continue to trend -tele monitoring -cardio on board Code(s): R74.8 - ABNORMAL LEVELS OF OTHER SERUM ENZYMES (3) Pleural effusion Assessment/Plan: -ON DIURETICS -PULM AND CARDIO ON BOARD Code(s): J90 - PLEURAL EFFUSION, NOT ELSEWHERE CLASSIFIED (4) HTN (hypertension) Assessment/Plan: -cardiology consult placed -furosemide IVP -on amlodipine and metoprolol Code(s): I10 - ESSENTIAL (PRIMARY) HYPERTENSION (5) Urinary hesitancy Assessment/Plan: -PSA -pt sts had prostate scraping in past--bph Code(s): R39.11 - HESITANCY OF MICTURITION
--- NOTE | 2018-11-02 10:29 | CONSULT ---
Consult - text type - Consultation Consultation Note: Renal consult for [place]TON vs. CKD This is a 83 year old gentleman with hx of Hypertension (not on medications) who presented with complaints of SOB/THORNE and LE edmea and admitted for acute CHF with Cr of 1.8. Pt reports having swelling in his legs for a few weeks. Denies any hx of CKD, kidney stones, urine infections. Denies any prostate problems but does have symptoms of incomplete voiding. No flank pain, dysuria. SOB is now resolved, Leg edema still persists. Making more urine now. No NSIAD use, no recent contrast exposure, recent Abx use, or skin rash. No fever, chillls, N/V/D. PMhx: as above Allergies: NKDA Family Hx: NC Social Hx: No T/A/D ROS: as per HPI Home Medications Medication Instructions Recorded NK [No Known Home Medication] 10/31/18 Vital Signs Temperature 98.3 F 11/02/18 09:00 Pulse Rate 80 11/02/18 09:00 Respiratory Rate 20 11/02/18 09:00 Blood Pressure 150/99 11/02/18 09:00 O2 Sat by Pulse Oximetry (%) 97 11/02/18 09:00 Intake & Output 10/30/18 10/31/18 11/01/18 11/02/18 23:59 23:59 23:59 23:59 Intake Total 240 980 0 Output Total 500 1150 400 Balance -260 -170 -400 Weight 67.404 kg 66.406 kg 66.95 kg NAD awake and alert neck supple, no JVD RRR, no M/R CTA, no rales soft NT/ND no bladder distension trace to 1+ edema in ankles, no clubbing or cyanosis CBC, BMP 11/02/18 05:30 11/02/18 05:30 Laboratory Tests 10/31/18 11/01/18 11/02/18 14:14 06:00 05:30 Creatinine 1.4 H 1.6 H 1.8 H Laboratory Tests 10/31/18 14:33 Ur Specific [place] 1.020 Urine Protein 3+ Urine Ketones Trace H Urine Blood 1+ Urine Urobilinogen 1.0 Urine WBC (Auto) 43 Urine RBC (Auto) 6 Urine Casts (Auto) 5 Laboratory Tests 11/02/18 05:30 Calcium 8.5 B-Natriuretic Peptide 57645.5 H Current Medications Amlodipine Besylate (Norvasc -) 2.5 mg PO DAILY [facility] Last Admin: 11/02/18 06:28 Dose: 2.5 mg Aspirin (Ecotrin -) 81 mg PO DAILY [facility] Last Admin: 11/01/18 06:50 Dose: 81 mg Furosemide (Lasix Injection -) 40 mg IVPUSH DAILY [facility] Last Admin: 11/01/18 06:50 Dose: 40 mg Heparin Sodium (Porcine) (Heparin -) 5,000 unit SQ BID [facility] Last Admin: 11/01/18 22:08 Dose: 5,000 unit 83 year old gentleman with hx of Hypertension (not on medications) who presented with complaints of SOB/THORNE and LE edmea and admitted for acute CHF with Cr of 1.8. #CLAYTON vs CKD #Proteinuira #Hypertension #CHF #LE edema Baseline renal function unclear at the present time however Cr is rising here but may be due to cardio-renal syndrome vs. fluid shifts from diuresis vs. NANDA Check urine studies for FeUrea, UPCR and urine Eosinophils continue IV Lasix for now as pt still has edema would not introduce NANDA/ARB untril pt is evolemic and off IV diuresis check kidney and bladder US f/u PSA Goal BP < 140/90, titrate Amlodipine as needed Dose all meds for CrCl < 30 Thank you Kelvin Ram DO
--- NOTE | 2018-11-02 10:47 | PN ---
Progress Note, Physician History of Present Illness: PULMONARY ALERT,FEELING BETTER,LESS DYSPNEIC - Current Medication List Current Medications: Active Medications Amlodipine Besylate (Norvasc -) 2.5 mg PO DAILY [facility] Last Admin: 11/02/18 06:28 Dose: 2.5 mg Aspirin (Ecotrin -) 81 mg PO DAILY [facility] Last Admin: 11/01/18 06:50 Dose: 81 mg Furosemide (Lasix Injection -) 40 mg IVPUSH DAILY [facility] Last Admin: 11/01/18 06:50 Dose: 40 mg Heparin Sodium (Porcine) (Heparin -) 5,000 unit SQ BID [facility] Last Admin: 11/01/18 22:08 Dose: 5,000 unit - Objective Vital Signs: Vital Signs Temperature 98.3 F 11/02/18 09:00 Pulse Rate 80 11/02/18 09:00 Respiratory Rate 20 11/02/18 09:00 Blood Pressure 150/99 11/02/18 09:00 O2 Sat by Pulse Oximetry (%) 97 11/02/18 09:00 Constitutional: Yes: Well Nourished, Calm Eyes: Yes: WNL HENT: Yes: WNL Neck: Yes: WNL Cardiovascular: Yes: Regular Rate and Rhythm, S1, S2 Respiratory: Yes: Rales (BIBASILAR RALES) Gastrointestinal: Yes: Normal Bowel Sounds, Soft Extremities: Yes: WNL Edema: No Labs: CBC, BMP 11/02/18 05:30 11/02/18 05:30 INR, PTT INR 1.38 (0.82-1.09) H 10/31/18 14:14 Assessment/Plan Problem List - Problems (1) CHF (congestive heart failure) Code(s): I50.9 - HEART FAILURE, UNSPECIFIED (2) Bilateral lower extremity edema Code(s): R60.0 - LOCALIZED EDEMA (3) Elevated brain natriuretic peptide (BNP) level Code(s): R79.89 - OTHER SPECIFIED ABNORMAL FINDINGS OF BLOOD CHEMISTRY (4) Elevated troponin Code(s): R74.8 - ABNORMAL LEVELS OF OTHER SERUM ENZYMES (5) HTN (hypertension) Code(s): I10 - ESSENTIAL (PRIMARY) HYPERTENSION (6) Scrotal edema Code(s): N50.89 - OTHER SPECIFIED DISORDERS OF THE MALE GENITAL ORGANS (7) Shortness of breath Code(s): R06.02 - SHORTNESS OF BREATH Assessment/Plan chf/lvd htn diuretics dvt prophylaxis o2 supplementation as needed daily weights DR SUN
[2018-11-02] MEDS: ASPIRIN COATED 81 MG TABLET.EC PO SCH (11:04)
[2018-11-02] MEDS: FUROSEMIDE 40 MG/4 ML INJECTABLE VIAL IVPUSH SCH (11:05)
[2018-11-02] MEDS: HEPARIN NA (PORCINE) 5,000 UNITS/ML 1ML VIAL SQ SCH ×2 (11:05→22:16)
--- NOTE | 2018-11-02 11:51 | ECHO ---
Name: NITO VALADEZ Exam:Adult Echocardiogram Study Date: 11/02/2018 08:15 AM Age: 83 yrs Reason For Study: HX PERICARDIAL EFFUSION Height: 65 in Weight: 155 lb BSA: 1.8 m2 MMode/2D Measurements & Calculations IVSd: 1.4 cm Ao root diam: 3.4 cm LVIDd: 4.4 cm LA dimension: 4.5 cm LVIDs: 3.1 cm LVPWd: 1.0 cm EDV(Teich): 87.5 ml LVOT diam: 2.1 cm ESV(Teich): 39.2 ml LAV (MOD-bp): 82.0 ml TAPSE: 2.4 cm Doppler Measurements & Calculations MV E max marco: 71.1 cm/sec Ao V2 max: 201.5 cm/sec MV A max marco: 63.7 cm/sec Ao max P.2 mmHg MV E/A: 1.1 Ao V2 mean: 120.4 cm/sec MV dec time: 0.16 sec Ao mean P.1 mmHg Ao V2 VTI: 32.2 cm MANUEL(I,D): 2.0 cm2 AI P1/2t: 554.4 msec MANUEL(V,D): 1.8 cm2 AI max marco: 239.0 cm/sec LV V1 max P.4 mmHg AI max P.0 mmHg LV V1 mean P.6 mmHg AI dec slope: 126.3 cm/sec2 LV V1 max: 105.1 cm/sec LV V1 mean: 76.7 cm/sec LV V1 VTI: 18.1 cm MR max marco: 503.1 cm/sec SV(LVOT): 64.0 ml MR max P.3 mmHg TR max marco: 324.1 cm/sec PI end-d marco: 183.9 cm/sec TR max P.1 mmHg Med Peak E' Marco: 3.2 cm/sec Med E/e': 22.5 Lat Peak E' Marco: 3.5 cm/sec Lat E/e': 20.3 Procedure A complete two-dimensional transthoracic echocardiogram was performed (2D, M-mode, Doppler and color flow Doppler). Left Ventricle The left ventricle is normal in size. There is moderate concentric left ventricular hypertrophy. Left ventricular systolic function is normal. Ejection Fraction = 55-60%. No regional wall motion abnormal ities noted. Right Ventricle The right ventricle is normal size. RV function is appears preseved. Atria The left atrium is moderately dilated. The right atrium is severely dilated. Mitral Valve There is mild mitral annular calcification. There is moderate mitral regurgitation. Tricuspid Valve The tricuspid valve is normal in structure and function. There is moderate tricuspid regurgitation. P ulmonary artery systolic pressure is at least 56 mmHg assuming RA pressure of 8 mmHg. Aortic Valve There is mild to moderate aortic valve thickening. Hemodynamically significant valvular aortic stenos is cannot be excluded. Mild aortic regurgitation. Pulmonic Valve The pulmonic valve is not well visualized. Mild pulmonic valvular regurgitation. Great Vessels The aortic root is normal size. Pericardium/Pleura There is no pericardial effusion. Large pleural effusion. Interpretation Summary The left ventricle is normal in size. There is moderate concentric left ventricular hypertrophy. Left ventricular systolic function is normal. No regional wall motion abnormalities noted. Ejection Fraction = 55-60%. RV function is appears preseved The left atrium is moderately dilated. The right atrium is severely dilated. There is mild mitral annular calcification. There is moderate mitral regurgitation. There is moderate tricuspid regurgitation. Pulmonary artery systolic pressure is at least 56 mmHg assuming RA pressure of 8 mmHg There is mild to moderate aortic valve thickening. Hemodynamically significant valvular aortic stenosis cannot be excluded. Mild aortic regurgitation. Mild pulmonic valvular regurgitation. There is no pericardial effusion. Large pleural effusion Previous study is not available for comparison Rhett Ramirez MD 11/02/2018 11:51 AM
[2018-11-02 14:41] VITALS: BMI 24.4
--- NOTE | 2018-11-02 17:41 | PN ---
Progress Note, Physician Chief Complaint: The patient appears comfortable at the time of exam. He has improved leg edema and reports no chest pain, shortness at rest, palpitation or dizziness. Telemetry reveiwed, it showed sinus rhythm with frequent VPCs and APCs. History of Present Illness: 83 year old man with a PMHx of HTN, (off meds for years) and ?prostate issue who has not seen doctors in years who presents with LE edema, scrotal edema, and sob. BNP 14k Trop 1.0 Ck 500 -> 253 Cr 1.4 ->1.6 EKG: sinus rhythm with pvc's, lateral ST abnormalities BP very elevated at 190s-108 on admission. Echocardioram 11/02/2018: Moderate concentric LVH with normal systolic function. LEVF = 55-60%. Normal RV. Moderate LA and severe RA dilatation. Moderate MR. Moderate pulmonary HTN, PASP = 56 mmHg. - Current Medication List Current Medications: Active Medications Amlodipine Besylate (Norvasc -) 2.5 mg PO DAILY [facility] Last Admin: 11/02/18 11:06 Dose: Not Given Aspirin (Ecotrin -) 81 mg PO DAILY [facility] Last Admin: 11/02/18 11:04 Dose: 81 mg Furosemide (Lasix Injection -) 40 mg IVPUSH DAILY [facility] Last Admin: 11/02/18 11:05 Dose: 40 mg Heparin Sodium (Porcine) (Heparin -) 5,000 unit SQ BID [facility] Last Admin: 11/02/18 11:05 Dose: 5,000 unit - Objective Vital Signs: Vital Signs Temperature 98.3 F 11/02/18 15:52 Pulse Rate 85 11/02/18 15:52 Respiratory Rate 22 H 11/02/18 15:52 Blood Pressure 161/90 11/02/18 15:52 O2 Sat by Pulse Oximetry (%) 97 11/02/18 09:00 General: Well developed. Well nourished. No acute distress. Head: Normocephalic. Atraumatic, Eyes: PERRLA, EOMI. Sclerae anicteric. Conjunctivae clear. Neck: Supple. No JVD. No bruits. Heart: Normal S1, S2: Regularly irregular rhythm and rate. II/ HSM. No gallop or rub. Lungs: Symmetrical air entry. Bibasilar crackles. No wheezing or rhonchi. Abdomen: Soft. Bowel sound positive. Non tender. No masses. Extremities: 1+ edema. No clubbing or cyanosis. PD 2+, equal bilaterally. Neuro: Intact, no focal findings. AAO X3. Labs: CBC, BMP 11/02/18 05:30 11/02/18 05:30 INR, PTT INR 1.38 (0.82-1.09) H 10/31/18 14:14 Assessment/Plan 83 year old man with a PMHx of HTN, (off meds for years) and ?prostate issue who has not seen doctors in years who presents with LE edema, scrotal edema, and sob. BNP 14k Trop 1.0 Ck 500 -> 253 Cr 1.4 ->1.6 EKG: sinus rhythm with pvc's, lateral ST abnormalities BP very elevated at 190s-108 on admission. Echocardioram 11/02/2018: Moderate concentric LVH with normal systolic function. LEVF = 55-60%. Normal RV. Moderate LA and severe RA dilatation. Moderate MR. Moderate pulmonary HTN, PASP = 56 mmHg. 1) Acute diastolic CHF and positive cardiac enzymes: -Patient appears to have been having worsening CHF symptoms last few months. His troponin is likely due to CHF as level 1.0 is pretty much unchanged on 3 checks but possible ischemic component. CK was 500 on admission than 253. EKG with lateral ST abnormalities. Patient with no chest pain and no acute dyspnea. For this reason and since bp' s very uncontrolled will not acutely anticoagluate. -Continue furosemide IV 40mg daily and monitor bun/cr and lytes along with I/O's -Would start metoprolol xl 50mg daily -Increase amlodipine to 5 mg daily. -Will likely plan to change amlodipine to arjun-i/arb once can establish that his Cr is stable since no previous levels and today is 1.6 -Will likely need an eventual ischemic evaluation when CHF is under control and renal function stable. -Continue aspirin 81mg daily. Atorvastatin 40mg daily. Will follow patient with you
[2018-11-03 08:39] LABS: ALBUMIN 3.4 g/dl (3.4-5.0); ALK PHOS 84 U/L (45-117); ANION GAP 7 MMOL/L (8-16); BILIRUBIN,TOTAL 1.3 mg/dL (0.2-1); BLOOD UREA NITROGEN 31 mg/dL (7-18); CALCIUM 8.3 mg/dL (8.5-10.1); CHLORIDE 104 mmol/L (98-107); CO2 29 mmol/L (21-32); CREATININE 1.6 mg/dL (0.55-1.3); GLUCOSE,RANDOM 90 mg/dL (74-106); PHOSPHOROUS 3.8 mg/dL (2.5-4.9); POTASSIUM 3.9 mmol/L (3.5-5.1); SGOT/AST 27 U/L (15-37); SGPT/ALT 22 U/L (13-61); SODIUM 141 mmol/L (136-145); TOT PROT 6.3 g/dl (6.4-8.2)
--- NOTE | 2018-11-03 09:31 | PN ---
Progress Note, Physician - Current Medication List Current Medications: Active Medications Amlodipine Besylate (Norvasc -) 2.5 mg PO DAILY [facility] Last Admin: 11/02/18 11:06 Dose: Not Given Aspirin (Ecotrin -) 81 mg PO DAILY [facility] Last Admin: 11/02/18 11:04 Dose: 81 mg Furosemide (Lasix Injection -) 40 mg IVPUSH DAILY [facility] Last Admin: 11/02/18 11:05 Dose: 40 mg Heparin Sodium (Porcine) (Heparin -) 5,000 unit SQ BID [facility] Last Admin: 11/02/18 22:16 Dose: 5,000 unit - Objective Vital Signs: Vital Signs Temperature 97.0 F L 11/03/18 06:00 Pulse Rate 88 11/03/18 06:00 Respiratory Rate 20 11/03/18 06:00 Blood Pressure 170/54 L 11/03/18 06:00 O2 Sat by Pulse Oximetry (%) 97 11/02/18 21:00 Cardiovascular: Yes: S1, S2 Respiratory: Yes: Regular, CTA Bilaterally Gastrointestinal: Yes: Normal Bowel Sounds, Soft Edema: Yes Labs: CBC, BMP 11/03/18 07:10 INR, PTT INR 1.38 (0.82-1.09) H 10/31/18 14:14 Problem List - Problems (1) CHF (congestive heart failure) Assessment/Plan: -furosemide IVP--will monitor renal function -cardiology noted -echo nl ef -BNP 18,000 -1L fluid restriction -daily weights -strict I&O -O2 via [place] prn for SOB -keep SpO2 >90% Code(s): I50.9 - HEART FAILURE, UNSPECIFIED (2) Elevated troponin Assessment/Plan: -troponin elevated-will continue to trend -tele monitoring -cardio on board Code(s): R74.8 - ABNORMAL LEVELS OF OTHER SERUM ENZYMES (3) Pleural effusion Assessment/Plan: -ON DIURETICS -PULM AND CARDIO ON BOARD Code(s): J90 - PLEURAL EFFUSION, NOT ELSEWHERE CLASSIFIED (4) HTN (hypertension) Assessment/Plan: -cardiology consult placed -furosemide IVP -on amlodipine and metoprolol Code(s): I10 - ESSENTIAL (PRIMARY) HYPERTENSION (5) Urinary hesitancy Code(s): R39.11 - HESITANCY OF MICTURITION
[2018-11-03 09:33] LABS: BASO % 0.9 % (0-2.0); EOS % 1.6 % (0-4.5); HEMATOCRIT 45.8 % (35.4-49); HEMOGLOBIN 15.5 GM/dL (11.7-16.9); LYMPH % 9.8 % (8-40); MCH 30.9 pg (25.7-33.7); MCHC 33.9 g/dl (32.0-35.9); MEAN CELL VOLUME 91.2 fl (80-96); MEAN PLT VOLUME 8.4 fl (7.5-11.1); MONO % 6.7 % (3.8-10.2); PLATELET COUNT 244 K/MM3 (134-434); RBC 5.02 M/mm3 (4.00-5.60); RDW 17.3 % (11.9-15.9); WHITE BLOOD COUNT 8.5 K/mm3 (4.0-10.0)
[2018-11-03] MEDS: HEPARIN NA (PORCINE) 5,000 UNITS/ML 1ML VIAL SQ SCH ×2 (10:09→23:06)
[2018-11-03] MEDS: ASPIRIN COATED 81 MG TABLET.EC PO SCH (10:09)
[2018-11-03] MEDS: amLODIPine BESYLATE 2.5 MG TABLET (FP) PO SCH (10:09)
[2018-11-03] MEDS: FUROSEMIDE 40 MG/4 ML INJECTABLE VIAL IVPUSH SCH (10:09)
[2018-11-03] MEDS: LOSARTAN POTASSIUM 50 MG TABLET (FP) PO SCH (10:19)
--- NOTE | 2018-11-03 11:17 | PN ---
Progress Note, Physician History of Present Illness: PULMONARY ALERT,OOB-CHAIR,LESS DYSPNEIC,-CP - Current Medication List Current Medications: Active Medications Amlodipine Besylate (Norvasc -) 2.5 mg PO DAILY [facility] Last Admin: 11/03/18 10:09 Dose: 2.5 mg Aspirin (Ecotrin -) 81 mg PO DAILY [facility] Last Admin: 11/03/18 10:09 Dose: 81 mg Furosemide (Lasix Injection -) 40 mg IVPUSH DAILY [facility] Last Admin: 11/03/18 10:09 Dose: 40 mg Heparin Sodium (Porcine) (Heparin -) 5,000 unit SQ BID [facility] Last Admin: 11/03/18 10:09 Dose: 5,000 unit Losartan Potassium (Cozaar -) 50 mg PO DAILY [facility] Last Admin: 11/03/18 10:19 Dose: 50 mg Tamsulosin HCl (Flomax -) 0.4 mg PO DAILY@0830 [facility] - Objective Vital Signs: Vital Signs Temperature 97.0 F L 11/03/18 06:00 Pulse Rate 88 11/03/18 06:00 Respiratory Rate 20 11/03/18 06:00 Blood Pressure 170/54 L 11/03/18 06:00 O2 Sat by Pulse Oximetry (%) 97 11/02/18 21:00 Constitutional: Yes: Well Nourished, Calm Eyes: Yes: WNL HENT: Yes: WNL Neck: Yes: WNL Cardiovascular: Yes: Regular Rate and Rhythm, S1, S2 Respiratory: Yes: Rales (BIBASILAR RALES) Gastrointestinal: Yes: Normal Bowel Sounds Extremities: Yes: WNL Edema: Yes Labs: CBC, BMP 11/03/18 07:10 11/03/18 07:10 INR, PTT INR 1.38 (0.82-1.09) H 10/31/18 14:14 Assessment/Plan Problem List - Problems (1) CHF (congestive heart failure) Code(s): I50.9 - HEART FAILURE, UNSPECIFIED (2) Bilateral lower extremity edema Code(s): R60.0 - LOCALIZED EDEMA (3) Elevated brain natriuretic peptide (BNP) level Code(s): R79.89 - OTHER SPECIFIED ABNORMAL FINDINGS OF BLOOD CHEMISTRY (4) Elevated troponin Code(s): R74.8 - ABNORMAL LEVELS OF OTHER SERUM ENZYMES (5) HTN (hypertension) Code(s): I10 - ESSENTIAL (PRIMARY) HYPERTENSION (6) Scrotal edema Code(s): N50.89 - OTHER SPECIFIED DISORDERS OF THE MALE GENITAL ORGANS (7) Shortness of breath Code(s): R06.02 - SHORTNESS OF BREATH Assessment/Plan chf/lvd htn severe pulmonary htn PLAN cont diuretics dvt prophylaxis o2 supplementation as needed daily weights monitor lytes,renal function DR SUN
--- NOTE | 2018-11-03 11:43 | PN ---
Progress Note, Physician History of Present Illness: seen and examined today in nad. sitting in chair. states he is feeling better today. no overnight events or new complaints. - Current Medication List Current Medications: Active Medications Amlodipine Besylate (Norvasc -) 2.5 mg PO DAILY [facility] Last Admin: 11/03/18 10:09 Dose: 2.5 mg Aspirin (Ecotrin -) 81 mg PO DAILY [facility] Last Admin: 11/03/18 10:09 Dose: 81 mg Furosemide (Lasix Injection -) 40 mg IVPUSH DAILY [facility] Last Admin: 11/03/18 10:09 Dose: 40 mg Heparin Sodium (Porcine) (Heparin -) 5,000 unit SQ BID [facility] Last Admin: 11/03/18 10:09 Dose: 5,000 unit Losartan Potassium (Cozaar -) 50 mg PO DAILY [facility] Last Admin: 11/03/18 10:19 Dose: 50 mg Tamsulosin HCl (Flomax -) 0.4 mg PO DAILY@0830 [facility] - Objective Vital Signs: Vital Signs Temperature 97.0 F L 11/03/18 06:00 Pulse Rate 88 11/03/18 06:00 Respiratory Rate 20 11/03/18 06:00 Blood Pressure 170/54 L 11/03/18 06:00 O2 Sat by Pulse Oximetry (%) 97 11/02/18 21:00 Constitutional: Yes: No Distress, Calm Eyes: Yes: Conjunctiva Clear, EOM Intact HENT: Yes: Atraumatic, Normocephalic Neck: Yes: Supple, Trachea Midline Cardiovascular: Yes: Regular Rate and Rhythm, S1, S2. No: Bradycardia, Tachycardia, Pulse Irregular, Bruit, JVD, Gallop, Murmur, Rub, S3, S4, Varicosities Respiratory: Yes: Regular, Rales. No: Rhonchi, SOB, Wheezes Gastrointestinal: Yes: Normal Bowel Sounds, Soft Extremities: Yes: WNL Edema: Yes Edema: LLE: 1+, RLE: 1+ Peripheral Pulses WNL: Yes Neurological: Yes: Alert, Oriented Psychiatric: Yes: Alert, Oriented Labs: CBC, BMP 11/03/18 07:10 11/03/18 07:10 INR, PTT INR 1.38 (0.82-1.09) H 10/31/18 14:14 - ....Imaging Chest X-ray: Report Reviewed, Image Reviewed EKG: Report Reviewed, Image Reviewed Other: Report Reviewed, Image Reviewed (tele-nsr with frequent pvcs) Assessment/Plan 83 year old man with a PMHx of HTN, (off meds for years) and ?prostate issue who has not seen doctors in years who presents with LE edema, scrotal edema, and sob. BNP 14k Trop 1.0 Ck 500 -> 253 Cr 1.4 ->1.6 EKG: sinus rhythm with pvc's, lateral ST abnormalities BP very elevated at 190s-108 on admission. Echocardioram 11/02/2018: Moderate concentric LVH with normal systolic function. LEVF = 55-60%. Normal RV. Moderate LA and severe RA dilatation. Moderate MR. Moderate pulmonary HTN, PASP = 56 mmHg. 1) Acute diastolic CHF and positive cardiac enzymes: -Patient appears to have been having worsening CHF symptoms last few months. His troponin is likely due to CHF as level 1.0 is pretty much unchanged on 3 checks but possible ischemic component. CK was 500 on admission than 253. EKG with lateral ST abnormalities. Patient with no chest pain and no acute dyspnea. -symptoms and volumes status improving but still volume overloaded -Continue furosemide IV 40mg daily and monitor bun/cr and lytes along with I/O's -Would start metoprolol xl 50mg daily -Increase amlodipine to 5 mg daily. -Will likely plan to change amlodipine to arjun-i/arb once can establish that his Cr is stable -Will likely need an eventual ischemic evaluation when CHF is under control and renal function stable. -Continue aspirin 81mg daily. Atorvastatin 40mg daily. 2. frequent pvcs on tele -asymptomatic -start metoprolol as above Will follow patient with you
--- NOTE | 2018-11-03 12:09 | PN ---
Progress Note (short form) - Note Progress Note: Renal follow up for CLAYTON/CKD Pt seen and examined at the bedside no acute complaints making urine no sob, cp, abd pain, N/V/D Vital Signs Temperature 97.0 F L 11/03/18 06:00 Pulse Rate 88 11/03/18 06:00 Respiratory Rate 20 11/03/18 06:00 Blood Pressure 170/54 L 11/03/18 06:00 O2 Sat by Pulse Oximetry (%) 97 11/02/18 21:00 Intake & Output 10/31/18 11/01/18 11/02/18 11/03/18 23:59 23:59 23:59 23:59 Intake Total 240 980 300 Output Total 500 1150 1050 400 Balance -260 -170 -750 -400 Weight 67.404 kg 66.406 kg 66.678 kg 65.862 kg NAD awake and alert neck supple, no JVD RRR, no M/R CTA, no rales soft NT/ND slight bladder distension no edema CBC, BMP 11/03/18 07:10 11/03/18 07:10 Current Medications Amlodipine Besylate (Norvasc -) 2.5 mg PO DAILY [facility] Last Admin: 11/03/18 10:09 Dose: 2.5 mg Aspirin (Ecotrin -) 81 mg PO DAILY [facility] Last Admin: 11/03/18 10:09 Dose: 81 mg Furosemide (Lasix Injection -) 40 mg IVPUSH DAILY [facility] Last Admin: 11/03/18 10:09 Dose: 40 mg Heparin Sodium (Porcine) (Heparin -) 5,000 unit SQ BID [facility] Last Admin: 11/03/18 10:09 Dose: 5,000 unit Losartan Potassium (Cozaar -) 50 mg PO DAILY [facility] Last Admin: 11/03/18 10:19 Dose: 50 mg Tamsulosin HCl (Flomax -) 0.4 mg PO DAILY@0830 [facility] 83 year old gentleman with hx of Hypertension (not on medications) who presented with complaints of SOB/THORNE and LE edmea and admitted for acute CHF with Cr of 1.8. #CLAYTON vs CKD #Proteinuira #Hypertension #CHF #LE edema Renal function stable US showed b/l hydronephrosis, will place weathers for 24 hours and monitor or improvement in renal function start Flomax continue present meds including diuretics trend renal function and electrolytes Thank you Kelvin Ram DO
[2018-11-03] MEDS: TAMSULOSIN HCL 0.4 MG CAP PO SCH (15:48)
[2018-11-03] MEDS ORDERED: ACETAMINOPHEN 325 MG TABLET (FP) PO ONE (23:15)
[2018-11-03] MEDS ORDERED: oxyCODONE HCL 5 MG TABLET PO ONE (23:15)
[2018-11-04 07:12] LABS: ALK PHOS 77 U/L (45-117); ANION GAP 8 MMOL/L (8-16); BILIRUBIN,TOTAL 1.1 mg/dL (0.2-1); BLOOD UREA NITROGEN 30 mg/dL (7-18); CALCIUM 7.9 mg/dL (8.5-10.1); CHLORIDE 105 mmol/L (98-107); CO2 28 mmol/L (21-32); CREATININE 1.4 mg/dL (0.55-1.3); GLUCOSE,RANDOM 85 mg/dL (74-106); POTASSIUM 3.6 mmol/L (3.5-5.1); SGOT/AST 23 U/L (15-37); SGPT/ALT 20 U/L (13-61); SODIUM 141 mmol/L (136-145); TOT PROT 5.6 g/dl (6.4-8.2)
[2018-11-04] MEDS: TAMSULOSIN HCL 0.4 MG CAP PO SCH (08:46)
[2018-11-04 09:39] LABS: MAGNESIUM 2.1 mg/dL (1.8-2.4)
[2018-11-04] MEDS: LOSARTAN POTASSIUM 50 MG TABLET (FP) PO SCH (09:42)
[2018-11-04] MEDS: amLODIPine BESYLATE 2.5 MG TABLET (FP) PO SCH (09:43)
[2018-11-04] MEDS: FUROSEMIDE 40 MG/4 ML INJECTABLE VIAL IVPUSH SCH (09:43)
[2018-11-04] MEDS: ASPIRIN COATED 81 MG TABLET.EC PO SCH (09:43)
[2018-11-04] MEDS: HEPARIN NA (PORCINE) 5,000 UNITS/ML 1ML VIAL SQ SCH ×2 (09:43→22:31)
[2018-11-04] MEDS: FINASTERIDE 5 MG TABLET (FP) PO SCH (11:03)
--- NOTE | 2018-11-04 12:20 | PN ---
Progress Note (short form) - Note Progress Note: Renal follow up for CLAYTON/CKD Pt seen and examined at the bedside no acute complaints denies any sob, cp, abd pain making urine in weathers catheter Vital Signs Temperature 97.7 F 11/04/18 10:00 Pulse Rate 92 H 11/04/18 10:00 Respiratory Rate 20 11/04/18 10:00 Blood Pressure 141/80 11/04/18 10:00 O2 Sat by Pulse Oximetry (%) 94 L 11/04/18 09:00 Intake & Output 11/01/18 11/02/18 11/03/18 11/04/18 23:59 23:59 23:59 23:59 Intake Total 980 300 300 Output Total 1150 1050 2750 Balance -170 -750 -2450 Weight 66.406 kg 66.678 kg 65.862 kg 67.495 kg NAD awake and alert neck supple, no JVD RRR, no M/R CTA, no rales soft NT/ND slight bladder distension no edema CBC, BMP 11/03/18 07:10 11/04/18 05:30 Current Medications Amlodipine Besylate (Norvasc -) 5 mg PO DAILY [facility] Aspirin (Ecotrin -) 81 mg PO DAILY [facility] Last Admin: 11/04/18 09:43 Dose: 81 mg Finasteride (Proscar -) 5 mg PO DAILY [facility] Last Admin: 11/04/18 11:03 Dose: 5 mg Furosemide (Lasix Injection -) 40 mg IVPUSH DAILY [facility] Last Admin: 11/04/18 09:43 Dose: 40 mg Heparin Sodium (Porcine) (Heparin -) 5,000 unit SQ BID [facility] Last Admin: 11/04/18 09:43 Dose: 5,000 unit Losartan Potassium (Cozaar -) 50 mg PO DAILY [facility] Last Admin: 11/04/18 09:42 Dose: 50 mg Metoprolol Succinate (Toprol Xl -) 50 mg PO DAILY [facility] Tamsulosin HCl (Flomax -) 0.4 mg PO DAILY@0830 [facility] Last Admin: 11/04/18 08:46 Dose: 0.4 mg 83 year old gentleman with hx of Hypertension (not on medications) who presented with complaints of SOB/THORNE and LE edmea and admitted for acute CHF with Cr of 1.8. #CLAYTON vs CKD #Proteinuira #Hypertension #CHF #LE edema Renal function improved in last 24 hours will plan to d/c weathers today and check trial of void continue flomax and proscar if PVR < 400 would maintain w/o catheter will need urology follow up (inpatient if PVR is high or outpatient if PVR is acceptable) continue lasix as per cardiology Thank you Kelvin Ram DO
--- NOTE | 2018-11-04 12:36 | PN ---
Progress Note, Physician - Current Medication List Current Medications: Active Medications Amlodipine Besylate (Norvasc -) 5 mg PO DAILY [facility] Aspirin (Ecotrin -) 81 mg PO DAILY [facility] Last Admin: 11/04/18 09:43 Dose: 81 mg Finasteride (Proscar -) 5 mg PO DAILY [facility] Last Admin: 11/04/18 11:03 Dose: 5 mg Furosemide (Lasix Injection -) 40 mg IVPUSH DAILY [facility] Last Admin: 11/04/18 09:43 Dose: 40 mg Heparin Sodium (Porcine) (Heparin -) 5,000 unit SQ BID [facility] Last Admin: 11/04/18 09:43 Dose: 5,000 unit Losartan Potassium (Cozaar -) 50 mg PO DAILY [facility] Last Admin: 11/04/18 09:42 Dose: 50 mg Metoprolol Succinate (Toprol Xl -) 50 mg PO DAILY [facility] Tamsulosin HCl (Flomax -) 0.4 mg PO DAILY@0830 [facility] Last Admin: 11/04/18 08:46 Dose: 0.4 mg - Objective Vital Signs: Vital Signs Temperature 97.7 F 11/04/18 10:00 Pulse Rate 92 H 11/04/18 10:00 Respiratory Rate 20 11/04/18 10:00 Blood Pressure 141/80 11/04/18 10:00 O2 Sat by Pulse Oximetry (%) 94 L 11/04/18 09:00 Constitutional: Yes: Calm, Thin Cardiovascular: Yes: Regular Rate and Rhythm, S1, S2 Respiratory: Yes: CTA Bilaterally Gastrointestinal: Yes: Normal Bowel Sounds, Soft Genitourinary: Yes: Mendoza Present Edema: Yes Neurological: Yes: Alert, Oriented Labs: CBC, BMP 11/03/18 07:10 11/04/18 05:30 INR, PTT INR 1.38 (0.82-1.09) H 10/31/18 14:14 Problem List - Problems (1) Bilateral lower extremity edema Assessment/Plan: iv lasix weights monitor lytes Code(s): R60.0 - LOCALIZED EDEMA (2) HTN (hypertension) Assessment/Plan: amlopipine torpol Code(s): I10 - ESSENTIAL (PRIMARY) HYPERTENSION (3) Urinary hesitancy Assessment/Plan: flomax and proscar urology consult for hydropnephrosis Code(s): R39.11 - HESITANCY OF MICTURITION
--- NOTE | 2018-11-04 13:54 | PN ---
Progress Note, Physician History of Present Illness: PULMONARY ALERT,FEELING BETTER,-SOB,-CP - Current Medication List Current Medications: Active Medications Amlodipine Besylate (Norvasc -) 5 mg PO DAILY [facility] Aspirin (Ecotrin -) 81 mg PO DAILY [facility] Last Admin: 11/04/18 09:43 Dose: 81 mg Finasteride (Proscar -) 5 mg PO DAILY [facility] Last Admin: 11/04/18 11:03 Dose: 5 mg Furosemide (Lasix Injection -) 40 mg IVPUSH DAILY [facility] Last Admin: 11/04/18 09:43 Dose: 40 mg Heparin Sodium (Porcine) (Heparin -) 5,000 unit SQ BID [facility] Last Admin: 11/04/18 09:43 Dose: 5,000 unit Losartan Potassium (Cozaar -) 50 mg PO DAILY [facility] Last Admin: 11/04/18 09:42 Dose: 50 mg Metoprolol Succinate (Toprol Xl -) 50 mg PO DAILY [facility] Tamsulosin HCl (Flomax -) 0.4 mg PO DAILY@0830 [facility] Last Admin: 11/04/18 08:46 Dose: 0.4 mg - Objective Vital Signs: Vital Signs Temperature 97.7 F 11/04/18 10:00 Pulse Rate 92 H 11/04/18 10:00 Respiratory Rate 20 11/04/18 10:00 Blood Pressure 141/80 11/04/18 10:00 O2 Sat by Pulse Oximetry (%) 94 L 11/04/18 09:00 Constitutional: Yes: Well Nourished, Calm Eyes: Yes: WNL HENT: Yes: WNL Neck: Yes: WNL Cardiovascular: Yes: Regular Rate and Rhythm, S1, S2 Respiratory: Yes: CTA Bilaterally Gastrointestinal: Yes: Normal Bowel Sounds, Soft Extremities: Yes: WNL Edema: Yes Labs: CBC, BMP 11/03/18 07:10 11/04/18 05:30 INR, PTT INR 1.38 (0.82-1.09) H 10/31/18 14:14 Assessment/Plan Problem List - Problems (1) CHF (congestive heart failure) Code(s): I50.9 - HEART FAILURE, UNSPECIFIED (2) Bilateral lower extremity edema Code(s): R60.0 - LOCALIZED EDEMA (3) Elevated brain natriuretic peptide (BNP) level Code(s): R79.89 - OTHER SPECIFIED ABNORMAL FINDINGS OF BLOOD CHEMISTRY (4) Elevated troponin Code(s): R74.8 - ABNORMAL LEVELS OF OTHER SERUM ENZYMES (5) HTN (hypertension) Code(s): I10 - ESSENTIAL (PRIMARY) HYPERTENSION (6) Scrotal edema Code(s): N50.89 - OTHER SPECIFIED DISORDERS OF THE MALE GENITAL ORGANS (7) Shortness of breath Code(s): R06.02 - SHORTNESS OF BREATH Assessment/Plan chf/lvd improving htn severe pulmonary htn PLAN diuretics dvt prophylaxis o2 supplementation as needed daily weights monitor lytes,renal function DR SUN
[2018-11-04 14:03] LABS: N-TERMINAL BNP 10303.2 pg/ml (5-450)
--- NOTE | 2018-11-04 15:34 | PN ---
Progress Note, Physician Chief Complaint: The patient appears comfortable at the time of exam. He has improved leg edema and reports no chest pain, shortness at rest, palpitation or dizziness. Telemetry reveiwed, it showed sinus rhythm with frequent VPCs and runs of NSVT, up to 17 beats. History of Present Illness: 83 year old man with a PMHx of HTN, (off meds for years) and ?prostate issue who has not seen doctors in years who presents with LE edema, scrotal edema, and sob. BNP 14k Trop 1.0 Ck 500 -> 253 Cr 1.4 ->1.6 EKG: sinus rhythm with pvc's, lateral ST abnormalities BP very elevated at 190s-108 on admission. Echocardioram 11/02/2018: Moderate concentric LVH with normal systolic function. LEVF = 55-60%. Normal RV. Moderate LA and severe RA dilatation. Moderate MR. Moderate pulmonary HTN, PASP = 56 mmHg. NSVT on tele noted. Patient has no palpitation, syncope or near syncope. - Current Medication List Current Medications: Active Medications Amlodipine Besylate (Norvasc -) 5 mg PO DAILY [facility] Aspirin (Ecotrin -) 81 mg PO DAILY [facility] Last Admin: 11/04/18 09:43 Dose: 81 mg Finasteride (Proscar -) 5 mg PO DAILY [facility] Last Admin: 11/04/18 11:03 Dose: 5 mg Furosemide (Lasix Injection -) 40 mg IVPUSH DAILY [facility] Last Admin: 11/04/18 09:43 Dose: 40 mg Heparin Sodium (Porcine) (Heparin -) 5,000 unit SQ BID [facility] Last Admin: 11/04/18 09:43 Dose: 5,000 unit Losartan Potassium (Cozaar -) 50 mg PO DAILY [facility] Last Admin: 11/04/18 09:42 Dose: 50 mg Metoprolol Succinate (Toprol Xl -) 50 mg PO DAILY [facility] Tamsulosin HCl (Flomax -) 0.4 mg PO DAILY@0830 [facility] Last Admin: 11/04/18 08:46 Dose: 0.4 mg - Objective Vital Signs: Vital Signs Temperature 97.7 F 11/04/18 14:00 Pulse Rate 83 11/04/18 14:00 Respiratory Rate 20 11/04/18 14:00 Blood Pressure 131/60 11/04/18 14:00 O2 Sat by Pulse Oximetry (%) 94 L 11/04/18 09:00 General: Well developed. Well nourished. No acute distress. Head: Normocephalic. Atraumatic, Eyes: PERRLA, EOMI. Sclerae anicteric. Conjunctivae clear. Neck: Supple. No JVD. No bruits. Heart: Normal S1, S2: Regular rhythm and rate. No murmur. No gallop or rub. Lungs: Symmetrical air entry. Clear to auscultation. No crackles. No wheezing or rhonchi. Abdomen: Soft. Bowel sound positive. Non tender. No masses. Extremities: Trace edema. No clubbing or cyanosis. PD 2+, equal bilaterally. Labs: CBC, BMP 11/03/18 07:10 11/04/18 05:30 INR, PTT INR 1.38 (0.82-1.09) H 10/31/18 14:14 Assessment/Plan 83 year old man with a PMHx of HTN, (off meds for years) and ?prostate issue who has not seen doctors in years who presents with LE edema, scrotal edema, and sob. BNP 14k Trop 1.0 Ck 500 -> 253 Cr 1.4 ->1.6 EKG: sinus rhythm with pvc's, lateral ST abnormalities BP very elevated at 190s-108 on admission. Echocardioram 11/02/2018: Moderate concentric LVH with normal systolic function. LEVF = 55-60%. Normal RV. Moderate LA and severe RA dilatation. Moderate MR. Moderate pulmonary HTN, PASP = 56 mmHg. NSVT on tele noted. Patient has no palpitation, syncope or near syncope. 1) Acute diastolic CHF and positive cardiac enzymes: -Patient appears to have been having worsening CHF symptoms last few months. His troponin is likely due to CHF as level 1.0 is pretty much unchanged on 3 checks but possible ischemic component. CK was 500 on admission than 253. EKG with lateral ST abnormalities. Patient with no chest pain and no acute dyspnea. -Symptoms and volumes status improving but still volume overloaded -Continue furosemide IV 40mg daily and monitor bun/cr and lytes along with I/O's -Will likely plan to change amlodipine to arjun-i/arb once can establish that his Cr is stable -Will likely need an eventual ischemic evaluation when CHF is under control and renal function stable. -Continue aspirin 81mg daily. Atorvastatin 40mg daily. 2. NSVT and frequent pvcs on tele -asymptomatic, preserved LV systolic function. Beta-kitty therapy is recommended. -Increase metoprolol succinate to 100 mg daily. -Could hold or discontinue amlodipine if BP is lower. -Monitor K and Mag close while on IV Lasix. Will follow patient with you
[2018-11-05 06:49] LABS: EOS % 2.3 % (0-4.5); HEMATOCRIT 46.5 % (35.4-49); HEMOGLOBIN 15.2 GM/dL (11.7-16.9); LYMPH % 9.1 % (8-40); MCH 29.3 pg (25.7-33.7); MCHC 32.6 g/dl (32.0-35.9); MEAN CELL VOLUME 89.8 fl (80-96); MONO % 6.5 % (3.8-10.2); NEUT % 81.1 % (42.8-82.8); PLATELET COUNT 217 K/MM3 (134-434); RBC 5.18 M/mm3 (4.00-5.60); WHITE BLOOD COUNT 7.7 K/mm3 (4.0-10.0)
[2018-11-05 07:15] LABS: ANION GAP 5 MMOL/L (8-16); BLOOD UREA NITROGEN 28 mg/dL (7-18); CALCIUM 8.3 mg/dL (8.5-10.1); CHLORIDE 105 mmol/L (98-107); CO2 29 mmol/L (21-32); CREATININE 1.3 mg/dL (0.55-1.3); GLUCOSE,RANDOM 88 mg/dL (74-106); MAGNESIUM 2.3 mg/dL (1.8-2.4); POTASSIUM 3.7 mmol/L (3.5-5.1); SODIUM 139 mmol/L (136-145)
--- NOTE | 2018-11-05 08:29 | CON.GU ---
Consult Consult Specialty:: urology Referred by:: Jamie - History of Present Illness Chief Complaint: bilateral hydronephrosis History of Present Illness: Patient is an 83 year old male with history of CHF/htn/pleural effusion admitted with elevated troponin levels. Patient was noted to have a rise in his creatinine. U/S showed bilateral hydronephrosis (right greater than left) with moderate urinary retention. Patient denies gross hematuria, nausea, vomiting, previous urologic surgery, previous urinary retention, or history of CAP or stones. Patient had a weathers placed and creatinine normalized to his baseline of 1.3. Patient was placed on flomax and had weathers removed yesterday afternoon. Patient is currently voiding well. He has a baseline of moderate prostatism and notes significant improvement on flomax. - History Source History Provided By: Patient - Past Medical History [employer]: No: Alzheimer's Cardio/Vascular: Yes: HTN. No: AFIB Pulmonary: No: COPD Gastrointestinal: No: Ascites Hepatobiliary: No: Cirrhosis Renal/: No: Renal Failure - Alcohol/Substance Use Hx Alcohol Use: No - Smoking History Smoking history: Never smoked Have you smoked in the past 12 months: No - Social History ADL: Independent Home Medications - Allergies Allergies/Adverse Reactions: Allergies Allergy/AdvReac Type Severity Reaction Status Date / Time No Known Allergies Allergy Verified 10/31/18 13:04 - Home Medications Home Medications: Ambulatory Orders NK [No Known Home Medication] 10/31/18 Physical Exam- Vital Signs: Vital Signs Temperature 98.1 F 11/05/18 06:00 Pulse Rate 77 11/05/18 06:00 Respiratory Rate 20 11/05/18 06:00 Blood Pressure 160/80 11/05/18 06:00 O2 Sat by Pulse Oximetry (%) 92 L 11/04/18 21:00 Constitutional: Yes: Well Nourished, No Distress, Calm Eyes: Yes: WNL, Conjunctiva Clear, EOM Intact HENT: Yes: WNL, Atraumatic, Normocephalic, Other Neck: Yes: WNL, Supple Cardiovascular: Yes: Regular Rate and Rhythm Respiratory: Yes: Regular Gastrointestinal: Yes: WNL, Normal Bowel Sounds, Soft Renal/: Yes: WNL Kidneys: Yes: WNL Pelvis: Yes: WNL Testicles: Yes: WNL Scrotum: Yes: WNL (2-3+ prostate with asymmetry) Penis: Yes: WNL Labs: CBC, BMP 11/05/18 05:30 11/05/18 05:30 Imaging - Results Ultrasound: Report Reviewed Assessment/Plan impression bph urinary retention bilateral hydronephrosis plan continue flomax will follow-up as outpatient for uroflow analysis and SMA 7
[2018-11-05] MEDS: TAMSULOSIN HCL 0.4 MG CAP PO SCH (09:25)
[2018-11-05] MEDS: FINASTERIDE 5 MG TABLET (FP) PO SCH (09:25)
[2018-11-05] MEDS: ASPIRIN COATED 81 MG TABLET.EC PO SCH (09:25)
[2018-11-05] MEDS: FUROSEMIDE 40 MG/4 ML INJECTABLE VIAL IVPUSH SCH (09:25)
[2018-11-05] MEDS: LOSARTAN POTASSIUM 50 MG TABLET (FP) PO SCH (09:25)
[2018-11-05] MEDS: HEPARIN NA (PORCINE) 5,000 UNITS/ML 1ML VIAL SQ SCH ×2 (09:26→21:57)
[2018-11-05] MEDS ORDERED: amLODIPine BESYLATE 2.5 MG TABLET (FP) PO SCH (10:00)
--- NOTE | 2018-11-05 12:49 | PN ---
Progress Note (short form) - Note Progress Note: PULMONARY States breathing continues to improve. No chest pain. No significant cough. Vital Signs Period Temp Pulse Resp BP Sys/Rider Pulse Ox Last 24 Hr 97.7 F-98.6 F 70-83 20-20 131-160/60-80 92-95 Gen: NAD in chair Heart: RRR Lung: decreased breath sounds at the bases Abd: soft, nontender Ext: + edema CBC, BMP 11/05/18 05:30 11/05/18 05:30 Active Medications Aspirin (Ecotrin -) 81 mg PO DAILY [facility] Last Admin: 11/05/18 09:25 Dose: 81 mg Finasteride (Proscar -) 5 mg PO DAILY [facility] Last Admin: 11/05/18 09:25 Dose: 5 mg Furosemide (Lasix Injection -) 40 mg IVPUSH DAILY [facility] Last Admin: 11/05/18 09:25 Dose: 40 mg Heparin Sodium (Porcine) (Heparin -) 5,000 unit SQ BID [facility] Last Admin: 11/05/18 09:26 Dose: 5,000 unit Losartan Potassium (Cozaar -) 50 mg PO DAILY [facility] Last Admin: 11/05/18 09:25 Dose: 50 mg Metoprolol Succinate (Toprol Xl -) 50 mg PO DAILY [facility] Last Admin: 11/05/18 09:25 Dose: 50 mg Tamsulosin HCl (Flomax -) 0.4 mg PO DAILY@0830 [facility] Last Admin: 11/05/18 09:25 Dose: 0.4 mg A/P Acute on Chronic Diastolic Heart Failure Pulmonary HTN Acute Kidney Injury improving +Troponins likely Demand Ischemia NSVT HTN - continue lasix - monitor urine output, creatinine - daily weights - O2 to keep SpO2 >90% - outpt f/u of echocardiogram when euvolemic to reassess pulmonary HTN - DVT prophylaxis
--- NOTE | 2018-11-05 12:57 | PN ---
Progress Note, Physician Chief Complaint: patient leg swelling improving trial of voiding successful doesnot want to go to [facility] - Current Medication List Current Medications: Active Medications Aspirin (Ecotrin -) 81 mg PO DAILY [facility] Last Admin: 11/05/18 09:25 Dose: 81 mg Finasteride (Proscar -) 5 mg PO DAILY [facility] Last Admin: 11/05/18 09:25 Dose: 5 mg Furosemide (Lasix Injection -) 40 mg IVPUSH DAILY [facility] Last Admin: 11/05/18 09:25 Dose: 40 mg Heparin Sodium (Porcine) (Heparin -) 5,000 unit SQ BID [facility] Last Admin: 11/05/18 09:26 Dose: 5,000 unit Losartan Potassium (Cozaar -) 50 mg PO DAILY [facility] Last Admin: 11/05/18 09:25 Dose: 50 mg Metoprolol Succinate (Toprol Xl -) 50 mg PO DAILY [facility] Last Admin: 11/05/18 09:25 Dose: 50 mg Tamsulosin HCl (Flomax -) 0.4 mg PO DAILY@0830 [facility] Last Admin: 11/05/18 09:25 Dose: 0.4 mg - Objective Vital Signs: Vital Signs Temperature 98.4 F 11/05/18 10:00 Pulse Rate 80 11/05/18 10:00 Respiratory Rate 20 11/05/18 10:00 Blood Pressure 144/68 11/05/18 10:00 O2 Sat by Pulse Oximetry (%) 95 11/05/18 09:00 Constitutional: Yes: Calm Cardiovascular: Yes: Regular Rate and Rhythm, S1, S2 Respiratory: Yes: CTA Bilaterally Gastrointestinal: Yes: Normal Bowel Sounds, Soft Edema: Yes Neurological: Yes: Alert Labs: CBC, BMP 11/05/18 05:30 11/05/18 05:30 INR, PTT INR 1.38 (0.82-1.09) H 10/31/18 14:14 Problem List - Problems (1) Bilateral lower extremity edema Assessment/Plan: iv lasix 40mg today will give extra 20mg iv as well today change to po lasix tmw and dc home if ok with cardiology weights decreasing monitor lytes Code(s): R60.0 - LOCALIZED EDEMA (2) HTN (hypertension) Assessment/Plan: amlopipine stopoped bc leg edema torpol cozaar Code(s): I10 - ESSENTIAL (PRIMARY) HYPERTENSION (3) Urinary hesitancy Assessment/Plan: flomax and proscar urology consult for hydropnephrosis- outpatient work up continue flomax Code(s): R39.11 - HESITANCY OF MICTURITION
[2018-11-05] MEDS ORDERED: FUROSEMIDE 40 MG/4 ML INJECTABLE VIAL IVPUSH ONE (14:00)
--- NOTE | 2018-11-05 15:46 | PN ---
Progress Note, Physician Chief Complaint: The patient appears comfortable at the time of exam. He has improved leg edema and reports no chest pain, shortness at rest, palpitation or dizziness. Telemetry reviewed, it showed sinus rhythm with frequent APCs, VPCs, ventricular couplets and triplets. No prolonged NSVT. History of Present Illness: 83 year old man with a PMHx of HTN, (off meds for years) and ?prostate issue who has not seen doctors in years who presents with LE edema, scrotal edema, and sob. BNP 14k Trop 1.0 Ck 500 -> 253 Cr 1.4 ->1.6 EKG: sinus rhythm with pvc's, lateral ST abnormalities BP very elevated at 190s-108 on admission. Echocardioram 11/02/2018: Moderate concentric LVH with normal systolic function. LEVF = 55-60%. Normal RV. Moderate LA and severe RA dilatation. Moderate MR. Moderate pulmonary HTN, PASP = 56 mmHg. NSVT on tele noted 11/03 - 10/2718. Patient has no palpitation, syncope or near syncope. He has been treated with up titrating Metoprolol with improvement. - Current Medication List Current Medications: Active Medications Aspirin (Ecotrin -) 81 mg PO DAILY [facility] Last Admin: 11/05/18 09:25 Dose: 81 mg Finasteride (Proscar -) 5 mg PO DAILY [facility] Last Admin: 11/05/18 09:25 Dose: 5 mg Furosemide (Lasix Injection -) 40 mg IVPUSH DAILY [facility] Last Admin: 11/05/18 09:25 Dose: 40 mg Heparin Sodium (Porcine) (Heparin -) 5,000 unit SQ BID [facility] Last Admin: 11/05/18 09:26 Dose: 5,000 unit Losartan Potassium (Cozaar -) 50 mg PO DAILY [facility] Last Admin: 11/05/18 09:25 Dose: 50 mg Metoprolol Succinate (Toprol Xl -) 50 mg PO DAILY [facility] Last Admin: 11/05/18 09:25 Dose: 50 mg Tamsulosin HCl (Flomax -) 0.4 mg PO DAILY@0830 [facility] Last Admin: 11/05/18 09:25 Dose: 0.4 mg - Objective Vital Signs: Vital Signs Temperature 97.6 F 11/05/18 14:00 Pulse Rate 70 11/05/18 14:00 Respiratory Rate 20 11/05/18 14:00 Blood Pressure 133/57 L 11/05/18 14:00 O2 Sat by Pulse Oximetry (%) 95 11/05/18 09:00 General: Well developed. Well nourished. No acute distress. Head: Normocephalic. Atraumatic, Eyes: PERRLA, EOMI. Sclerae anicteric. Conjunctivae clear. Neck: Supple. No JVD. No bruits. Heart: Normal S1, S2: Regular rhythm and rate. No murmur. No gallop or rub. Lungs: Symmetrical air entry. Clear to auscultation. No crackles. No wheezing or rhonchi. Abdomen: Soft. Bowel sound positive. Non tender. No masses. Extremities: Trace edema. No clubbing or cyanosis. PD 2+, equal bilaterally. Labs: CBC, BMP 11/05/18 05:30 11/05/18 05:30 INR, PTT INR 1.38 (0.82-1.09) H 10/31/18 14:14 Assessment/Plan 83 year old man with a PMHx of HTN, (off meds for years) and ?prostate issue who has not seen doctors in years who presents with LE edema, scrotal edema, and sob. BNP 14k Trop 1.0 Ck 500 -> 253 Cr 1.4 ->1.6 EKG: sinus rhythm with pvc's, lateral ST abnormalities BP very elevated at 190s-108 on admission. Echocardioram 11/02/2018: Moderate concentric LVH with normal systolic function. LEVF = 55-60%. Normal RV. Moderate LA and severe RA dilatation. Moderate MR. Moderate pulmonary HTN, PASP = 56 mmHg. NSVT on tele noted 11/03 - 10/2718. Patient has no palpitation, syncope or near syncope. He has been treated with up titrating Metoprolol with improvement. 1) Acute diastolic CHF and positive cardiac enzymes: -Patient appears to have been having worsening CHF symptoms last few months. His troponin is likely due to CHF as level 1.0 is pretty much unchanged on 3 checks but possible ischemic component. CK was 500 on admission than 253. EKG with lateral ST abnormalities. Patient with no chest pain and no acute dyspnea. -Symptoms and volumes status improving but still volume overloaded -Change IV Lasix to PO 40mg daily and monitor bun/cr and lytes along with I/O's -Will likely plan to change amlodipine to arjun-i/arb once can establish that his Cr is stable -Will likely need an eventual ischemic evaluation when CHF is under control and renal function stable. -Continue aspirin 81mg daily. Atorvastatin 40mg daily. 2. NSVT and frequent pvcs on tele -asymptomatic, preserved LV systolic function. Beta-kitty therapy is recommended. -Increase metoprolol succinate to 100 mg daily. -Could hold or discontinue amlodipine if BP is lower. -Monitor K and Mag close while on IV Lasix. Will follow patient with you
--- NOTE | 2018-11-05 16:08 | PN ---
Progress Note (short form) - Note Progress Note: Renal follow up for CLAYTON/CKD Pt seen and examined at the bedside no acute complaints Vital Signs Temperature 97.6 F 11/05/18 14:00 Pulse Rate 70 11/05/18 14:00 Respiratory Rate 20 11/05/18 14:00 Blood Pressure 133/57 L 11/05/18 14:00 O2 Sat by Pulse Oximetry (%) 95 11/05/18 09:00 Intake & Output 11/02/18 11/03/18 11/04/18 11/05/18 23:59 23:59 23:59 23:59 Intake Total 300 300 850 100 Output Total 1050 2750 1200 550 Balance -750 -2450 -350 -450 Weight 66.678 kg 65.862 kg 65.862 kg 65.589 kg NAD awake and alert neck supple, no JVD RRR, no M/R CTA, no rales soft NT/ND no edema CBC, BMP 11/05/18 05:30 11/05/18 05:30 Current Medications Aspirin (Ecotrin -) 81 mg PO DAILY [facility] Last Admin: 11/05/18 09:25 Dose: 81 mg Finasteride (Proscar -) 5 mg PO DAILY [facility] Last Admin: 11/05/18 09:25 Dose: 5 mg Furosemide (Lasix -) 40 mg PO DAILY [facility] Heparin Sodium (Porcine) (Heparin -) 5,000 unit SQ BID [facility] Last Admin: 11/05/18 09:26 Dose: 5,000 unit Losartan Potassium (Cozaar -) 50 mg PO DAILY [facility] Last Admin: 11/05/18 09:25 Dose: 50 mg Metoprolol Succinate (Toprol Xl -) 100 mg PO DAILY [facility] Tamsulosin HCl (Flomax -) 0.4 mg PO DAILY@0830 [facility] Last Admin: 11/05/18 09:25 Dose: 0.4 mg 83 year old gentleman with hx of Hypertension (not on medications) who presented with complaints of SOB/THORNE and LE edmea and admitted for acute CHF with Cr of 1.8. #CLAYTON vs CKD #Proteinuira #Hypertension #CHF #LE edema Renal function improved voiding w/o weathers urolgoy eval noted continue flomax and proscar continue oral lasix Thank you Kelvin Ram DO
[2018-11-06 06:53] LABS: ALBUMIN 3.1 g/dl (3.4-5.0); ALK PHOS 73 U/L (45-117); ANION GAP 8 MMOL/L (8-16); BILIRUBIN,TOTAL 0.9 mg/dL (0.2-1); BLOOD UREA NITROGEN 34 mg/dL (7-18); CALCIUM 8.3 mg/dL (8.5-10.1); CHLORIDE 102 mmol/L (98-107); CO2 29 mmol/L (21-32); CREATININE 1.6 mg/dL (0.55-1.3); GLUCOSE,RANDOM 87 mg/dL (74-106); POTASSIUM 3.7 mmol/L (3.5-5.1); SGOT/AST 23 U/L (15-37); SGPT/ALT 23 U/L (13-61); SODIUM 140 mmol/L (136-145); TOT PROT 5.8 g/dl (6.4-8.2)
[2018-11-06] MEDS: ASPIRIN COATED 81 MG TABLET.EC PO SCH (09:16)
[2018-11-06] MEDS: TAMSULOSIN HCL 0.4 MG CAP PO SCH (09:16)
[2018-11-06] MEDS: HEPARIN NA (PORCINE) 5,000 UNITS/ML 1ML VIAL SQ SCH (09:17)
[2018-11-06] MEDS: FINASTERIDE 5 MG TABLET (FP) PO SCH (09:17)
[2018-11-06] MEDS: LOSARTAN POTASSIUM 50 MG TABLET (FP) PO SCH (09:17)
[2018-11-06] MEDS ORDERED: FUROSEMIDE 40 MG TABLET (FP) PO SCH (10:00)
--- NOTE | 2018-11-06 11:11 | PN ---
Progress Note, Physician History of Present Illness: pulmonary alert,no distress,oob-chair - Current Medication List Current Medications: Active Medications Aspirin (Ecotrin -) 81 mg PO DAILY [facility] Last Admin: 11/06/18 09:16 Dose: 81 mg Finasteride (Proscar -) 5 mg PO DAILY [facility] Last Admin: 11/06/18 09:17 Dose: 5 mg Furosemide (Lasix -) 40 mg PO DAILY [facility] Last Admin: 11/06/18 09:17 Dose: 40 mg Heparin Sodium (Porcine) (Heparin -) 5,000 unit SQ BID [facility] Last Admin: 11/06/18 09:17 Dose: 5,000 unit Losartan Potassium (Cozaar -) 50 mg PO DAILY [facility] Last Admin: 11/06/18 09:17 Dose: 50 mg Metoprolol Succinate (Toprol Xl -) 100 mg PO DAILY [facility] Last Admin: 11/06/18 09:17 Dose: 100 mg Tamsulosin HCl (Flomax -) 0.4 mg PO DAILY@0830 [facility] Last Admin: 11/06/18 09:16 Dose: 0.4 mg - Objective Vital Signs: Vital Signs Temperature 97.9 F 11/06/18 05:00 Pulse Rate 68 11/06/18 05:00 Respiratory Rate 18 11/06/18 05:00 Blood Pressure 129/79 11/06/18 05:00 O2 Sat by Pulse Oximetry (%) 97 11/05/18 21:00 Constitutional: Yes: Well Nourished, Calm Eyes: Yes: WNL HENT: Yes: WNL Neck: Yes: WNL Cardiovascular: Yes: Regular Rate and Rhythm, S1, S2 Respiratory: Yes: CTA Bilaterally Gastrointestinal: Yes: Normal Bowel Sounds, Soft Extremities: Yes: WNL Edema: Yes Labs: CBC, BMP 11/05/18 05:30 11/06/18 05:30 INR, PTT INR 1.38 (0.82-1.09) H 10/31/18 14:14 Assessment/Plan Problem List - Problems (1) CHF (congestive heart failure) Code(s): I50.9 - HEART FAILURE, UNSPECIFIED (2) Bilateral lower extremity edema Code(s): R60.0 - LOCALIZED EDEMA (3) Elevated brain natriuretic peptide (BNP) level Code(s): R79.89 - OTHER SPECIFIED ABNORMAL FINDINGS OF BLOOD CHEMISTRY (4) Elevated troponin Code(s): R74.8 - ABNORMAL LEVELS OF OTHER SERUM ENZYMES (5) HTN (hypertension) Code(s): I10 - ESSENTIAL (PRIMARY) HYPERTENSION (6) Scrotal edema Code(s): N50.89 - OTHER SPECIFIED DISORDERS OF THE MALE GENITAL ORGANS (7) Shortness of breath Code(s): R06.02 - SHORTNESS OF BREATH Assessment/Plan chf/lvd htn severe pulmonary htn PLAN diuretics dvt prophylaxis o2 supplementation as needed daily weights monitor lytes,renal function DR SUN
--- NOTE | 2018-11-06 12:58 | PN ---
Progress Note (short form) - Note Progress Note: Renal follow up for CLAYTON/CKD Pt seen and examined at the bedside no acute complaints voiding w/o catheter no sob, cp, abd pain, dysuria Vital Signs Temperature 98.3 F 11/06/18 10:00 Pulse Rate 68 11/06/18 10:00 Respiratory Rate 18 11/06/18 10:00 Blood Pressure 150/73 11/06/18 10:00 O2 Sat by Pulse Oximetry (%) 98 11/06/18 09:00 NAD awake and alert neck supple, no JVD RRR, no M/R CTA, no rales soft NT/ND no edema CBC, BMP 11/05/18 05:30 11/06/18 05:30 Current Medications Aspirin (Ecotrin -) 81 mg PO DAILY [facility] Last Admin: 11/06/18 09:16 Dose: 81 mg Finasteride (Proscar -) 5 mg PO DAILY [facility] Last Admin: 11/06/18 09:17 Dose: 5 mg Furosemide (Lasix -) 40 mg PO DAILY [facility] Last Admin: 11/06/18 09:17 Dose: 40 mg Heparin Sodium (Porcine) (Heparin -) 5,000 unit SQ BID [facility] Last Admin: 11/06/18 09:17 Dose: 5,000 unit Losartan Potassium (Cozaar -) 50 mg PO DAILY [facility] Last Admin: 11/06/18 09:17 Dose: 50 mg Metoprolol Succinate (Toprol Xl -) 100 mg PO DAILY [facility] Last Admin: 11/06/18 09:17 Dose: 100 mg Tamsulosin HCl (Flomax -) 0.4 mg PO DAILY@0830 [facility] Last Admin: 11/06/18 09:16 Dose: 0.4 mg 83 year old gentleman with hx of Hypertension (not on medications) who presented with complaints of SOB/THORNE and LE edmea and admitted for acute CHF with Cr of 1.8. #CLAYTON vs CKD #Proteinuira #Hypertension #CHF #LE edema Cr rachell slightly today but pt is voiding and has no bladder distension to suggest urinary retention continue flomax and proscar continue Lasix 40mg Daily stable for discharge with out patient follow up Thank you Kelvin Ram DO
--- NOTE | 2018-11-06 13:03 | DS ---
Physical Examination Vital Signs: Vital Signs Temperature 98.3 F 11/06/18 10:00 Pulse Rate 68 11/06/18 10:00 Respiratory Rate 18 11/06/18 10:00 Blood Pressure 150/73 11/06/18 10:00 O2 Sat by Pulse Oximetry (%) 98 11/06/18 09:00 Constitutional: Yes: Calm Cardiovascular: Yes: Regular Rate and Rhythm, S1, S2 Respiratory: Yes: CTA Bilaterally Gastrointestinal: Yes: Normal Bowel Sounds, Soft Edema: Yes (improving) Neurological: Yes: Alert, Oriented Labs: CBC, BMP 11/05/18 05:30 11/06/18 05:30 Discharge Summary Reason For Visit: ELEVATED BRAIN NATRIUETIC PEPTIDE (BNP) LEVEL Current Active Problems Bilateral lower extremity edema (Acute) CHF (congestive heart failure) (Acute) Elevated brain natriuretic peptide (BNP) level (Acute) Elevated troponin (Acute) HTN (hypertension) (Acute) Pleural effusion (Acute) Scrotal edema (Acute) Shortness of breath (Acute) Other Procedures: renal sono shows hydropnehorisis Hospital Course: Chief Complaint: SOB and B/L LE swelling History of Present Illness: Patient is an 83 y/o male with past medical history of HTN (non-compliant with meds) who presented to ER with complaints of worsening SOB with exertion for 3 weeks and worsening lower extremity swelling for 1 week. Patient became alarmed this morning when he noticed penile swelling. Has not followed up with PCP Dr. Estrella in several year patient admitted to telemetry and got iv lasix and now change to po lasix started on flomax and finasteride seen by urology to follow up as outpatient Condition: Fair - Instructions Referrals: Sidney Mitchell MD [Staff Physician] - 2 Weeks (uroflow analysis and BMP ) Disposition: HOME - Home Medications Comprehensive Discharge Medication List: Ambulatory Orders NK [No Known Home Medication] 10/31/18
--- NOTE | 2018-11-06 13:05 | PN ---
Progress Note (short form) - Note Progress Note: Mr Homar Bhakta has been in hospital from 10/31/18 to 11/06/18 and patient to see primary care doctor next week Problem List - Problems (1) Bilateral lower extremity edema Code(s): R60.0 - LOCALIZED EDEMA (2) HTN (hypertension) Code(s): I10 - ESSENTIAL (PRIMARY) HYPERTENSION (3) Urinary hesitancy Code(s): R39.11 - HESITANCY OF MICTURITION
--- NOTE | 2018-11-06 14:48 | PN ---
Progress Note, Physician Chief Complaint: The patient appears comfortable at the time of exam. He is ready to be discharged. Tele was discontinued. History of Present Illness: 83 year old man with a PMHx of HTN, (off meds for years) and ?prostate issue who has not seen doctors in years who presents with LE edema, scrotal edema, and sob. BNP 14k Trop 1.0 Ck 500 -> 253 Cr 1.4 ->1.6 EKG: sinus rhythm with pvc's, lateral ST abnormalities BP very elevated at 190s-108 on admission. Echocardioram 11/02/2018: Moderate concentric LVH with normal systolic function. LEVF = 55-60%. Normal RV. Moderate LA and severe RA dilatation. Moderate MR. Moderate pulmonary HTN, PASP = 56 mmHg. NSVT on tele noted 11/03 - 10/2718. Patient has no palpitation, syncope or near syncope. He has been treated with up titrating Metoprolol with improvement. - Current Medication List Current Medications: Active Medications Aspirin (Ecotrin -) 81 mg PO DAILY [facility] Last Admin: 11/06/18 09:16 Dose: 81 mg Finasteride (Proscar -) 5 mg PO DAILY [facility] Last Admin: 11/06/18 09:17 Dose: 5 mg Furosemide (Lasix -) 40 mg PO DAILY [facility] Last Admin: 11/06/18 09:17 Dose: 40 mg Heparin Sodium (Porcine) (Heparin -) 5,000 unit SQ BID [facility] Last Admin: 11/06/18 09:17 Dose: 5,000 unit Losartan Potassium (Cozaar -) 50 mg PO DAILY [facility] Last Admin: 11/06/18 09:17 Dose: 50 mg Metoprolol Succinate (Toprol Xl -) 100 mg PO DAILY [facility] Last Admin: 11/06/18 09:17 Dose: 100 mg Tamsulosin HCl (Flomax -) 0.4 mg PO DAILY@0830 [facility] Last Admin: 11/06/18 09:16 Dose: 0.4 mg - Objective Vital Signs: Vital Signs Temperature 98.3 F 11/06/18 10:00 Pulse Rate 68 11/06/18 10:00 Respiratory Rate 18 11/06/18 10:00 Blood Pressure 150/73 11/06/18 10:00 O2 Sat by Pulse Oximetry (%) 98 11/06/18 09:00 General: Well developed. Well nourished. No acute distress. Head: Normocephalic. Atraumatic, Eyes: PERRLA, EOMI. Sclerae anicteric. Conjunctivae clear. Neck: Supple. No JVD. No bruits. Heart: Normal S1, S2: Regular rhythm and rate. No murmur. No gallop or rub. Lungs: Symmetrical air entry. Clear to auscultation. No crackles. No wheezing or rhonchi. Abdomen: Soft. Bowel sound positive. Non tender. No masses. Extremities: 1-2+edema. No clubbing or cyanosis. PD 2+. Labs: CBC, BMP 11/05/18 05:30 11/06/18 05:30 INR, PTT INR 1.38 (0.82-1.09) H 10/31/18 14:14 Assessment/Plan 83 year old man with a PMHx of HTN, (off meds for years) and ?prostate issue who has not seen doctors in years who presents with LE edema, scrotal edema, and sob. BNP 14k Trop 1.0 Ck 500 -> 253 Cr 1.4 ->1.6 EKG: sinus rhythm with pvc's, lateral ST abnormalities BP very elevated at 190s-108 on admission. Echocardioram 11/02/2018: Moderate concentric LVH with normal systolic function. LEVF = 55-60%. Normal RV. Moderate LA and severe RA dilatation. Moderate MR. Moderate pulmonary HTN, PASP = 56 mmHg. NSVT on tele noted 11/03 - 10/2718. Patient has no palpitation, syncope or near syncope. He has been treated with up titrating Metoprolol with improvement. 1) Acute diastolic CHF and positive cardiac enzymes: -Patient appears to have been having worsening CHF symptoms last few months. His troponin is likely due to CHF as level 1.0 is pretty much unchanged on 3 checks but possible ischemic component. CK was 500 on admission than 253. EKG with lateral ST abnormalities. Patient with no chest pain and no acute dyspnea. -Symptoms and volumes status improving but still volume overloaded -Continue PO Lasix 40mg daily. -Will likely need an eventual ischemic evaluation when CHF is under control and renal function stable. -Continue aspirin 81mg daily. Atorvastatin 40mg daily. 2. NSVT and frequent pvcs on tele -asymptomatic, preserved LV systolic function. Beta-kitty therapy is recommended. -Continue metoprolol succinate to 100 mg daily. Out paient cardiac follow up as per Dr. Estrella
[2018-11-06 15:24] VITALS: BP 137/61; PULSE 66; TEMP 97.9
== END 2018-11-06 15:54 | disposition home or self-care (01) | DRG 291 ==
LOC: JER 12:57 → JERBED 14:58 → J4W 21:34
PROVIDERS: ADMIT Family Medicine; ATTEND Family Medicine
DX: I13.0 Hypertensive heart and chronic kidney disease with heart failure and stage 1 through stage 4 chronic kidney disease, or unspecified chronic kidney disease (principal); I50.33 Acute on chronic diastolic (congestive) heart failure; N13.30 Unspecified hydronephrosis; I47.1 Supraventricular tachycardia; N17.9 Acute kidney failure, unspecified; I24.8 Other forms of acute ischemic heart disease; I42.8 Other cardiomyopathies; N18.9 Chronic kidney disease, unspecified; Z91.14 Patient's other noncompliance with medication regimen; R39.11 Hesitancy of micturition; I27.20 Pulmonary hypertension, unspecified; I34.0 Nonrheumatic mitral (valve) insufficiency; N40.1 Benign prostatic hyperplasia with lower urinary tract symptoms; R33.8 Other retention of urine
CPT/HCPCS: 36415; 71046-TC-FY; 76775-TC; 76856-TC; 80048; 80053; 80061; 81003; 82436; 82550; 82553; 82570; 82962; 83036; 83721; 83735; 83880; 84100; 84133; 84153; 84156; 84300; 84484; 84540; 85025; 85027; 85610; 85730; 87086; 93005; 93010; 93306-TC; 97116-GP; 97161-GP; 99284-25; J1644

== ENCOUNTER 2019-03-23 06:30 | Emergency (ER) | payer OTHER | END 2019-03-23 08:58 | disposition home or self-care (01) | LOC: JER 06:30 ==

== ENCOUNTER 2020-09-02 16:57 | Inpatient (IN) | payer OTHER ==
[2020-09-02] MEDS ORDERED: HALOPERIDOL LACTATE 5 MG/ML ONE ×2 (18:28→18:50)
[2020-09-02] MEDS ORDERED: HALOPERIDOL LACTATE 5 MG/ML IM ONE ×2 (19:14→19:29)
[2020-09-02] MEDS ORDERED: LORazepam 1 MG TABLET PO ONE (19:17)
[2020-09-02] MEDS ORDERED: LORazepam 2 MG/ML SDV VIAL IVPUSH ONE (19:32)
[2020-09-02] MEDS ORDERED: LORazepam 2 MG/ML SDV VIAL IM ONE (20:22)
[2020-09-02] MEDS ORDERED: LORazepam 2 MG/ML SDV VIAL ONE (20:37)
[2020-09-02 22:20] LABS: BASO % 0.6 % (0-2.0); EOS % 1.5 % (0-4.5); HEMATOCRIT 35.8 % (35.4-49); HEMOGLOBIN 11.9 GM/dL (11.7-16.9); LYMPH % 7.7 % (8-40); MCH 30.5 pg (25.7-33.7); MCHC 33.3 g/dl (32.0-35.9); MEAN CELL VOLUME 91.7 fl (80-96); MEAN PLT VOLUME 7.7 fl (7.5-11.1); MONO % 5.6 % (3.8-10.2); NEUT % 84.6 % (42.8-82.8); PLATELET COUNT 174 K/MM3 (134-434); RDW 15.9 % (11.9-15.9); WHITE BLOOD COUNT 7.4 K/mm3 (4.0-10.0)
[2020-09-03] MEDS ORDERED: LORazepam 2 MG/ML SDV VIAL IM ONE (00:42)
[2020-09-03] MEDS ORDERED: LORazepam 2 MG/ML SDV VIAL ONE (00:44)
[2020-09-03 01:45] LABS: BILIRUBIN,TOTAL 1.4 mg/dL (0.2-1); BLOOD UREA NITROGEN 43.5 mg/dL (7-18); CALCIUM 8.9 mg/dL (8.5-10.1); POTASSIUM 4.6 mmol/L (3.5-5.1); TOT PROT 7.5 g/dl (6.4-8.2)
[2020-09-03 02:41] LABS: EPI CELLS 7 /uL (0-25.1); HYALINE CASTS 1 /uL (0-3.1); URINE APPEARANCE CLOUDY; URINE BACTERIA 6242 /uL (0-1359); URINE BILIRUBIN NEGATIVE (NEGATIVE); URINE COLOR YELLOW; URINE GLUCOSE (UA) NEGATIVE (NEGATIVE); URINE KETONE 1+ (NEGATIVE); URINE LEUK ESTERASE 3+ (NEGATIVE); URINE NITRITE POSITIVE (NEGATIVE); URINE PROTEIN 2+ (NEGATIVE); URINE RBC 80 /uL (0-23.9); URINE WBC 1903 /uL (0-25.8)
[2020-09-03] MEDS ORDERED: CEFTRIAXONE 1,000 MG in DEXTROSE 5%-WATER - 50 ML IVPB ONE (03:09)
[2020-09-03] MEDS ORDERED: SODIUM CHLORIDE 0.9% 500 ML INFUS.BAG IV ONE (03:10)
[2020-09-03] MEDS ORDERED: CEFTRIAXONE 1 GM/50 ML BAG ONE (03:37)
[2020-09-03] MEDS ORDERED: ACETAMINOPHEN 325 MG TABLET (FP) PO PRN (05:02)
[2020-09-03] MEDS ORDERED: ASCORBIC ACID 500 MG TABLET (FP) ONE (09:46)
[2020-09-03] MEDS ORDERED: FUROSEMIDE 40 MG TABLET (FP) ONE (09:46)
[2020-09-03] MEDS ORDERED: ASPIRIN 81 MG CHEWABLE TABLETS ONE (09:46)
[2020-09-03] MEDS ORDERED: ZINC SULFATE 220 MG CAPSULE (FP) ONE (09:47)
[2020-09-03] MEDS ORDERED: CHOLECALCIFEROL (VIT D3) 1,000 UNIT (25 MCG) TABLET ONE (09:48)
[2020-09-03] MEDS ORDERED: LOSARTAN POTASSIUM 50 MG TABLET ONE (09:48)
[2020-09-03] MEDS ORDERED: busPIRone HCL 5 MG TABLET ONE (09:48)
[2020-09-03] MEDS ORDERED: PIPERACILLIN/TAZOB 3.375 GM 3.375 GM/50 ML BAG IVPB ONE (09:49)
[2020-09-03] MEDS: busPIRone HCL 5 MG TABLET PO SCH ×2 (10:00→21:49)
[2020-09-03] MEDS ORDERED: FAMOTIDINE 20 MG TABLET PO SCH (10:00)
[2020-09-03] MEDS: ASPIRIN 81 MG CHEWABLE TABLETS PO SCH (10:00)
[2020-09-03] MEDS: CHOLECALCIFEROL (VIT D3) 1,000 UNIT (25 MCG) TABLET PO SCH (10:00)
[2020-09-03] MEDS: LOSARTAN POTASSIUM 50 MG TABLET PO SCH (10:00)
[2020-09-03] MEDS: FUROSEMIDE 40 MG TABLET (FP) PO SCH (10:00)
[2020-09-03] MEDS: PIPERACILLIN/TAZOB 3.375 GM 3.375 GM in DEXTROSE 5%-WATER - 50 ML IVPB SCH ×2 (10:00→19:23)
[2020-09-03] MEDS: ZINC SULFATE 220 MG TABLET PO SCH (10:00)
[2020-09-03] MEDS: ASCORBIC ACID 500 MG TABLET (FP) PO SCH (10:00)
[2020-09-03] MEDS ORDERED: ENOXAPARIN NA (PORCINE) 40 MG/0.4 ML DISP.SYRIN SQ SCH (10:00)
[2020-09-03] MEDS: FINASTERIDE 5 MG TABLET (FP) PO SCH (10:47)
[2020-09-03] MEDS: TAMSULOSIN HCL 0.4 MG CAP PO SCH (10:49)
[2020-09-03] MEDS ORDERED: LORazepam 2 MG/ML SDV VIAL IVPUSH ONE (11:15)
[2020-09-03 18:06] LABS: HEMATOCRIT 39.9 % (35.4-49); HEMOGLOBIN 12.9 GM/dL (11.7-16.9); MCH 29.7 pg (25.7-33.7); MCHC 32.3 g/dl (32.0-35.9); MEAN PLT VOLUME 7.9 fl (7.5-11.1); PLATELET COUNT 198 K/MM3 (134-434); RBC 4.34 M/mm3 (4.00-5.60); RDW 15.8 % (11.9-15.9)
[2020-09-03 18:59] LABS: POTASSIUM 4.8 mmol/L (3.5-5.1)
[2020-09-03 19:02] LABS: ALBUMIN 3.1 g/dl (3.4-5.0); BLOOD UREA NITROGEN 40.4 mg/dL (7-18); CALCIUM 8.4 mg/dL (8.5-10.1); MAGNESIUM 2.2 mg/dL (1.8-2.4)
[2020-09-03 19:05] LABS: CREATININE 1.8 mg/dL (0.55-1.3); PHOSPHOROUS 3.3 mg/dL (2.5-4.9)
[2020-09-03 19:06] LABS: TOT PROT 6.1 g/dl (6.4-8.2)
[2020-09-03] MEDS ORDERED: DEXTROSE 5%-WATER - 50 ML IVPB ONE (19:19)
[2020-09-03] MEDS ORDERED: PIPERACILLIN/TAZOBACTAM 3.375 GM VIAL IVPB ONE (19:19)
[2020-09-04] MEDS ORDERED: PIPERACILLIN/TAZOBACTAM 3.375 GM VIAL IVPB ONE (01:09)
[2020-09-04] MEDS ORDERED: DEXTROSE 5%-WATER - 50 ML IVPB ONE (01:09)
[2020-09-04] MEDS: PIPERACILLIN/TAZOB 3.375 GM 3.375 GM in DEXTROSE 5%-WATER - 50 ML IVPB SCH (01:34)
[2020-09-04 08:37] LABS: BASO % 0.4 % (0-2.0); EOS % 0.9 % (0-4.5); HEMATOCRIT 40.6 % (35.4-49); HEMOGLOBIN 13.5 GM/dL (11.7-16.9); LYMPH % 7.3 % (8-40); MCH 29.9 pg (25.7-33.7); MCHC 33.2 g/dl (32.0-35.9); MEAN PLT VOLUME 7.9 fl (7.5-11.1); MONO % 3.8 % (3.8-10.2); NEUT % 87.6 % (42.8-82.8); PLATELET COUNT 226 K/MM3 (134-434); RBC 4.51 M/mm3 (4.00-5.60); RDW 15.8 % (11.9-15.9); WHITE BLOOD COUNT 8.2 K/mm3 (4.0-10.0)
[2020-09-04 09:02] LABS: POTASSIUM 4.2 mmol/L (3.5-5.1)
[2020-09-04] MEDS: busPIRone HCL 5 MG TABLET PO SCH ×2 (09:49→21:08)
[2020-09-04] MEDS: FINASTERIDE 5 MG TABLET (FP) PO SCH (09:49)
[2020-09-04] MEDS: ASPIRIN 81 MG CHEWABLE TABLETS PO SCH (09:49)
[2020-09-04] MEDS: FUROSEMIDE 40 MG TABLET (FP) PO SCH (09:50)
[2020-09-04] MEDS: ASCORBIC ACID 500 MG TABLET (FP) PO SCH (09:50)
[2020-09-04] MEDS: LOSARTAN POTASSIUM 50 MG TABLET PO SCH (09:50)
[2020-09-04] MEDS: ZINC SULFATE 220 MG TABLET PO SCH (09:50)
[2020-09-04] MEDS: TAMSULOSIN HCL 0.4 MG CAP PO SCH (09:50)
[2020-09-04] MEDS: CHOLECALCIFEROL (VIT D3) 1,000 UNIT (25 MCG) TABLET PO SCH (09:50)
[2020-09-04] MEDS: ENOXAPARIN NA (PORCINE) 30 MG/0.3 ML DISP.SYRIN SQ SCH (09:50)
[2020-09-04 09:59] LABS: ALBUMIN 3.5 g/dl (3.4-5.0); BILIRUBIN,TOTAL 1.7 mg/dL (0.2-1); BLOOD UREA NITROGEN 42.1 mg/dL (7-18); CALCIUM 8.6 mg/dL (8.5-10.1); CREATININE 1.9 mg/dL (0.55-1.3); MAGNESIUM 2.2 mg/dL (1.8-2.4); TOT PROT 6.7 g/dl (6.4-8.2)
[2020-09-04] MEDS ORDERED: PIPERACILLIN/TAZOB 3.375 GM 3.375 GM in DEXTROSE 5%-WATER - 50 ML IVPB SCH (10:45)
[2020-09-05] MEDS ORDERED: MELATONIN 5 MG TABLETS PO ONE (00:21)
[2020-09-05] MEDS ORDERED: LORazepam 2 MG/ML SDV VIAL IM ONE (07:43)
[2020-09-05 07:51] LABS: BASO % 0.4 % (0-2.0); EOS % 0.5 % (0-4.5); HEMATOCRIT 40.8 % (35.4-49); HEMOGLOBIN 13.7 GM/dL (11.7-16.9); LYMPH % 11.5 % (8-40); MCH 30.2 pg (25.7-33.7); MCHC 33.5 g/dl (32.0-35.9); MEAN CELL VOLUME 90.1 fl (80-96); MEAN PLT VOLUME 7.9 fl (7.5-11.1); MONO % 5.4 % (3.8-10.2); NEUT % 82.2 % (42.8-82.8); PLATELET COUNT 230 K/MM3 (134-434); RBC 4.53 M/mm3 (4.00-5.60); RDW 16.1 % (11.9-15.9); WHITE BLOOD COUNT 8.6 K/mm3 (4.0-10.0)
[2020-09-05] MEDS ORDERED: ALPRAZolam 0.25 MG TABLET PO ONE (07:56)
[2020-09-05 08:05] LABS: POTASSIUM 4.9 mmol/L (3.5-5.1)
[2020-09-05 08:37] LABS: ALBUMIN 3.6 g/dl (3.4-5.0); BILIRUBIN,TOTAL 1.4 mg/dL (0.2-1); BLOOD UREA NITROGEN 48.8 mg/dL (7-18); CREATININE 2.2 mg/dL (0.55-1.3); TOT PROT 6.8 g/dl (6.4-8.2)
[2020-09-05] MEDS: FUROSEMIDE 40 MG TABLET (FP) PO SCH ×2 (09:30→19:14)
[2020-09-05] MEDS: ENOXAPARIN NA (PORCINE) 30 MG/0.3 ML DISP.SYRIN SQ SCH (09:30)
[2020-09-05] MEDS: ZINC SULFATE 220 MG CAPSULE (FP) PO SCH ×2 (09:32→14:17)
[2020-09-05] MEDS: busPIRone HCL 5 MG TABLET PO SCH ×3 (09:32→23:20)
[2020-09-05] MEDS: ASPIRIN 81 MG CHEWABLE TABLETS PO SCH ×2 (09:32→14:17)
[2020-09-05] MEDS: ASCORBIC ACID 500 MG TABLET (FP) PO SCH ×2 (09:32→14:17)
[2020-09-05] MEDS: TAMSULOSIN HCL 0.4 MG CAP PO SCH ×2 (09:32→14:15)
[2020-09-05] MEDS: FAMOTIDINE 20 MG TABLET PO SCH ×2 (09:33→14:17)
[2020-09-05] MEDS: FINASTERIDE 5 MG TABLET (FP) PO SCH ×2 (09:35→14:17)
[2020-09-05] MEDS: CHOLECALCIFEROL (VIT D3) 1,000 UNIT (25 MCG) TABLET PO SCH ×2 (09:35→14:18)
[2020-09-05] MEDS: LOSARTAN POTASSIUM 50 MG TABLET PO SCH ×2 (09:35→14:17)
[2020-09-05] MEDS ORDERED: MORPHINE SULFATE 2 MG/ML VIAL IM ONE (11:30)
[2020-09-05] MEDS ORDERED: SODIUM CHLORIDE 1,000 ML IV SCH (11:30)
[2020-09-05] MEDS ORDERED: VANCOMYCIN 1 GM in D5W (PRE-DOCKED) 1,000 MG/250 ML IVPB ONE (11:30)
[2020-09-05] MEDS: SODIUM CHLORIDE 0.45% 1,000 ML IV SCH (14:25)
[2020-09-05] MEDS ORDERED: ACETAMINOPHEN 1000 MG/100 ML VIAL (NON FORMULARY) IVPB ONE (23:43)
[2020-09-06] MEDS: SODIUM CHLORIDE 0.45% 1,000 ML IV SCH ×3 (05:05→21:03)
[2020-09-06 07:52] LABS: BASO % 0.2 % (0-2.0); EOS % 1.3 % (0-4.5); HEMATOCRIT 42.6 % (35.4-49); HEMOGLOBIN 14.2 GM/dL (11.7-16.9); LYMPH % 9.6 % (8-40); MCH 30.2 pg (25.7-33.7); MCHC 33.2 g/dl (32.0-35.9); MEAN CELL VOLUME 90.8 fl (80-96); MEAN PLT VOLUME 7.9 fl (7.5-11.1); MONO % 4.9 % (3.8-10.2); PLATELET COUNT 264 K/MM3 (134-434); RBC 4.69 M/mm3 (4.00-5.60); RDW 16.3 % (11.9-15.9); WHITE BLOOD COUNT 11.4 K/mm3 (4.0-10.0)
[2020-09-06 08:11] LABS: POTASSIUM 4.9 mmol/L (3.5-5.1)
[2020-09-06 08:12] LABS: CALCIUM 9.1 mg/dL (8.5-10.1)
[2020-09-06 08:13] LABS: BLOOD UREA NITROGEN 58.5 mg/dL (7-18); MAGNESIUM 2.4 mg/dL (1.8-2.4)
[2020-09-06 08:16] LABS: CREATININE 2.4 mg/dL (0.55-1.3); PHOSPHOROUS 4.2 mg/dL (2.5-4.9)
[2020-09-06] MEDS: busPIRone HCL 5 MG TABLET PO SCH ×2 (10:15→22:30)
[2020-09-06] MEDS: ASPIRIN 81 MG CHEWABLE TABLETS PO SCH (10:15)
[2020-09-06] MEDS: TAMSULOSIN HCL 0.4 MG CAP PO SCH (10:15)
[2020-09-06] MEDS: ENOXAPARIN NA (PORCINE) 30 MG/0.3 ML DISP.SYRIN SQ SCH (10:16)
[2020-09-06] MEDS: LOSARTAN POTASSIUM 50 MG TABLET PO SCH (10:16)
[2020-09-06] MEDS: FINASTERIDE 5 MG TABLET (FP) PO SCH (10:17)
[2020-09-06] MEDS: ASCORBIC ACID 500 MG TABLET (FP) PO SCH (10:17)
[2020-09-06] MEDS: ZINC SULFATE 220 MG CAPSULE (FP) PO SCH (10:17)
[2020-09-06] MEDS: CHOLECALCIFEROL (VIT D3) 1,000 UNIT (25 MCG) TABLET PO SCH (10:17)
[2020-09-06] MEDS ORDERED: CEFTRIAXONE 1 GM in DEXTROSE 5%-WATER - 50 ML IVPB ONE (18:37)
[2020-09-06] MEDS ORDERED: VANCOMYCIN 1 GRAM (PRE-DOCKED) 1 GM/200 ML BAG IVPB ONE (18:38)
[2020-09-06] MEDS ORDERED: amLODIPine BESYLATE 5 MG TABLET (FP) PO ONE (18:41)
[2020-09-06] MEDS ORDERED: cefTRIAXone SODIUM 1 GM VIAL ONE (20:55)
[2020-09-06] MEDS ORDERED: DEXTROSE 5%-WATER - 50 ML IVPB ONE (20:55)
[2020-09-07] MEDS ORDERED: amLODIPine BESYLATE 5 MG TABLET (FP) PO ONE (03:19)
[2020-09-07 08:02] LABS: POTASSIUM 4.7 mmol/L (3.5-5.1)
[2020-09-07 08:04] LABS: CALCIUM 8.8 mg/dL (8.5-10.1)
[2020-09-07 08:05] LABS: ALBUMIN 3.7 g/dl (3.4-5.0); BLOOD UREA NITROGEN 46.6 mg/dL (7-18); MAGNESIUM 2.3 mg/dL (1.8-2.4)
[2020-09-07 08:08] LABS: CREATININE 1.9 mg/dL (0.55-1.3); HEMATOCRIT 43.3 % (35.4-49); HEMOGLOBIN 14.3 GM/dL (11.7-16.9); MCH 30.2 pg (25.7-33.7); MEAN CELL VOLUME 91.6 fl (80-96); MEAN PLT VOLUME 7.9 fl (7.5-11.1); PLATELET COUNT 277 K/MM3 (134-434); RBC 4.72 M/mm3 (4.00-5.60); RDW 16.3 % (11.9-15.9); WHITE BLOOD COUNT 10.7 K/mm3 (4.0-10.0)
[2020-09-07 08:10] LABS: BILIRUBIN,TOTAL 1.5 mg/dL (0.2-1); TOT PROT 7.4 g/dl (6.4-8.2)
[2020-09-07] MEDS: ENOXAPARIN NA (PORCINE) 30 MG/0.3 ML DISP.SYRIN SQ SCH (11:00)
[2020-09-07] MEDS: ASPIRIN 81 MG CHEWABLE TABLETS PO SCH (11:04)
[2020-09-07] MEDS: busPIRone HCL 5 MG TABLET PO SCH ×2 (11:04→23:06)
[2020-09-07] MEDS: ZINC SULFATE 220 MG CAPSULE (FP) PO SCH (11:04)
[2020-09-07] MEDS: FAMOTIDINE 20 MG TABLET PO SCH (11:04)
[2020-09-07] MEDS: TAMSULOSIN HCL 0.4 MG CAP PO SCH (11:04)
[2020-09-07] MEDS: FINASTERIDE 5 MG TABLET (FP) PO SCH (11:04)
[2020-09-07] MEDS: CHOLECALCIFEROL (VIT D3) 1,000 UNIT (25 MCG) TABLET PO SCH (11:05)
[2020-09-07] MEDS: ASCORBIC ACID 500 MG TABLET (FP) PO SCH (11:05)
[2020-09-07] MEDS: SODIUM CHLORIDE 0.45% 1,000 ML IV SCH ×2 (14:44→17:50)
[2020-09-08] MEDS: SODIUM CHLORIDE 0.45% 1,000 ML IV SCH (01:41)
[2020-09-08 08:05] LABS: POTASSIUM 4.3 mmol/L (3.5-5.1)
[2020-09-08 08:11] LABS: ALBUMIN 3.5 g/dl (3.4-5.0); BLOOD UREA NITROGEN 38.3 mg/dL (7-18); CALCIUM 8.6 mg/dL (8.5-10.1)
[2020-09-08 08:14] LABS: BILIRUBIN,TOTAL 1.4 mg/dL (0.2-1); TOT PROT 6.9 g/dl (6.4-8.2)
[2020-09-08 08:15] LABS: CREATININE 1.5 mg/dL (0.55-1.3); HEMATOCRIT 45.2 % (35.4-49); HEMOGLOBIN 14.9 GM/dL (11.7-16.9); MCHC 32.9 g/dl (32.0-35.9); MEAN PLT VOLUME 7.7 fl (7.5-11.1); PLATELET COUNT 303 K/MM3 (134-434); RBC 4.97 M/mm3 (4.00-5.60); RDW 16.3 % (11.9-15.9); WHITE BLOOD COUNT 11.1 K/mm3 (4.0-10.0)
[2020-09-08] MEDS: ASCORBIC ACID 500 MG TABLET (FP) PO SCH (11:05)
[2020-09-08] MEDS: FINASTERIDE 5 MG TABLET (FP) PO SCH (11:05)
[2020-09-08] MEDS: TAMSULOSIN HCL 0.4 MG CAP PO SCH (11:05)
[2020-09-08] MEDS: busPIRone HCL 5 MG TABLET PO SCH ×2 (11:05→22:24)
[2020-09-08] MEDS: ASPIRIN 81 MG CHEWABLE TABLETS PO SCH (11:05)
[2020-09-08] MEDS: ZINC SULFATE 220 MG CAPSULE (FP) PO SCH (11:05)
[2020-09-08] MEDS: CHOLECALCIFEROL (VIT D3) 1,000 UNIT (25 MCG) TABLET PO SCH (11:06)
[2020-09-08] MEDS: ENOXAPARIN NA (PORCINE) 30 MG/0.3 ML DISP.SYRIN SQ SCH (12:28)
[2020-09-08] MEDS ORDERED: amLODIPine BESYLATE 5 MG TABLET (FP) PO ONE (12:38)
[2020-09-08 18:01] LABS: POTASSIUM 4.3 mmol/L (3.5-5.1)
[2020-09-08 18:02] LABS: CALCIUM 8.5 mg/dL (8.5-10.1)
[2020-09-08 18:03] LABS: ALBUMIN 3.3 g/dl (3.4-5.0); BLOOD UREA NITROGEN 36.6 mg/dL (7-18)
[2020-09-08 18:06] LABS: CREATININE 1.4 mg/dL (0.55-1.3)
[2020-09-08] MEDS: SODIUM BICARBONATE 8.4% - 75 MEQ in DEXTROSE 5%-WATER - 1,000 ML IV SCH (18:24)
[2020-09-09] MEDS: SODIUM BICARBONATE 8.4% - 75 MEQ in DEXTROSE 5%-WATER - 1,000 ML IV SCH ×4 (02:13→21:41)
[2020-09-09] MEDS: ASPIRIN 81 MG CHEWABLE TABLETS PO SCH (11:42)
[2020-09-09] MEDS: busPIRone HCL 5 MG TABLET PO SCH ×3 (11:42→21:54)
[2020-09-09] MEDS: FINASTERIDE 5 MG TABLET (FP) PO SCH (11:43)
[2020-09-09] MEDS: TAMSULOSIN HCL 0.4 MG CAP PO SCH (11:43)
[2020-09-09] MEDS: ENOXAPARIN NA (PORCINE) 30 MG/0.3 ML DISP.SYRIN SQ SCH (13:43)
[2020-09-09] MEDS: ASCORBIC ACID 500 MG TABLET (FP) PO SCH (13:43)
[2020-09-09] MEDS: CHOLECALCIFEROL (VIT D3) 1,000 UNIT (25 MCG) TABLET PO SCH (13:43)
[2020-09-09] MEDS: FAMOTIDINE 20 MG TABLET PO SCH (13:43)
[2020-09-09] MEDS: ZINC SULFATE 220 MG CAPSULE (FP) PO SCH (13:43)
[2020-09-09] MEDS: amLODIPine BESYLATE 5 MG TABLET (FP) PO SCH ×2 (21:42→21:54)
[2020-09-10] MEDS: SODIUM BICARBONATE 8.4% - 75 MEQ in DEXTROSE 5%-WATER - 1,000 ML IV SCH ×2 (02:42→12:33)
[2020-09-10 06:41] LABS: BASO % 0.3 % (0-2.0); EOS % 0.6 % (0-4.5); HEMATOCRIT 41.8 % (35.4-49); HEMOGLOBIN 13.8 GM/dL (11.7-16.9); LYMPH % 3.9 % (8-40); MCH 29.5 pg (25.7-33.7); MEAN CELL VOLUME 89.5 fl (80-96); MEAN PLT VOLUME 7.6 fl (7.5-11.1); MONO % 4.5 % (3.8-10.2); NEUT % 90.7 % (42.8-82.8); PLATELET COUNT 274 K/MM3 (134-434); RBC 4.68 M/mm3 (4.00-5.60); RDW 15.8 % (11.9-15.9)
[2020-09-10 07:01] LABS: POTASSIUM 3.3 mmol/L (3.5-5.1)
[2020-09-10 07:02] LABS: BLOOD UREA NITROGEN 23.4 mg/dL (7-18); CALCIUM 8.1 mg/dL (8.5-10.1)
[2020-09-10 07:03] LABS: MAGNESIUM 1.8 mg/dL (1.8-2.4)
[2020-09-10 07:06] LABS: CREATININE 1.4 mg/dL (0.55-1.3); PHOSPHOROUS 1.9 mg/dL (2.5-4.9)
[2020-09-10] MEDS ORDERED: POTASSIUM PHOSPHATE 30 MM in DEXTROSE 5%-WATER - 500 ML IVPB ONE (09:23)
[2020-09-10] MEDS ORDERED: WATER IVPB ONE ×2 (09:45→10:00)
[2020-09-10] MEDS ORDERED: POTASSIUM PHOSPHATE IVPB ONE ×2 (09:45→10:00)
[2020-09-10] MEDS ORDERED: POTASSIUM CHLORIDE IVPB ONE ×2 (09:45→10:00)
[2020-09-10] MEDS ORDERED: DEXTROSE 5% IVPB ONE ×2 (09:45→10:00)
[2020-09-10] MEDS: amLODIPine BESYLATE 5 MG TABLET (FP) PO SCH (10:05)
[2020-09-10] MEDS: ENOXAPARIN NA (PORCINE) 30 MG/0.3 ML DISP.SYRIN SQ SCH (10:05)
[2020-09-10] MEDS: ZINC SULFATE 220 MG CAPSULE (FP) PO SCH (10:10)
[2020-09-10] MEDS: CHOLECALCIFEROL (VIT D3) 1,000 UNIT (25 MCG) TABLET PO SCH (10:10)
[2020-09-10] MEDS: ASCORBIC ACID 500 MG TABLET (FP) PO SCH (10:10)
[2020-09-10] MEDS: ASPIRIN 81 MG CHEWABLE TABLETS PO SCH (10:10)
[2020-09-10] MEDS: TAMSULOSIN HCL 0.4 MG CAP PO SCH (10:10)
[2020-09-10] MEDS: busPIRone HCL 5 MG TABLET PO SCH ×2 (10:10→21:17)
[2020-09-10] MEDS: FINASTERIDE 5 MG TABLET (FP) PO SCH (10:10)
[2020-09-10] MEDS ORDERED: POTASSIUM PHOSPHATE 45 MM in DEXTROSE 5%-WATER - 500 ML IVPB ONE (11:30)
[2020-09-10] MEDS ORDERED: cefTRIAXone SODIUM 1 GM VIAL ONE (15:13)
[2020-09-10] MEDS ORDERED: DEXTROSE 5%-WATER - 50 ML IVPB ONE (15:13)
[2020-09-10] MEDS: CEFTRIAXONE 1 GM in DEXTROSE 5%-WATER - 50 ML IVPB SCH (15:21)
[2020-09-10] MEDS: POTASSIUM CHLORIDE 40 MEQ in AMINO ACIDS 4.25%/D5W 1,000 ML IVPB SCH ×2 (18:30→21:19)
[2020-09-11] MEDS: POTASSIUM CHLORIDE 40 MEQ in AMINO ACIDS 4.25%/D5W 1,000 ML IVPB SCH ×3 (07:48→16:38)
[2020-09-11] MEDS: TAMSULOSIN HCL 0.4 MG CAP PO SCH (08:36)
[2020-09-11] MEDS ORDERED: DEXTROSE 5%-WATER - 50 ML IVPB ONE (10:32)
[2020-09-11] MEDS ORDERED: cefTRIAXone SODIUM 1 GM VIAL ONE (10:32)
[2020-09-11] MEDS: amLODIPine BESYLATE 5 MG TABLET (FP) PO SCH (10:34)
[2020-09-11] MEDS: CHOLECALCIFEROL (VIT D3) 1,000 UNIT (25 MCG) TABLET PO SCH (10:34)
[2020-09-11] MEDS: ENOXAPARIN NA (PORCINE) 30 MG/0.3 ML DISP.SYRIN SQ SCH (10:34)
[2020-09-11] MEDS: CEFTRIAXONE 1 GM in DEXTROSE 5%-WATER - 50 ML IVPB SCH (10:34)
[2020-09-11] MEDS: ASPIRIN 81 MG CHEWABLE TABLETS PO SCH (10:34)
[2020-09-11] MEDS: FINASTERIDE 5 MG TABLET (FP) PO SCH (10:35)
[2020-09-11] MEDS: busPIRone HCL 5 MG TABLET PO SCH ×2 (10:35→22:32)
[2020-09-11] MEDS: ZINC SULFATE 220 MG CAPSULE (FP) PO SCH (10:35)
[2020-09-11] MEDS: FAMOTIDINE 20 MG TABLET PO SCH (10:35)
[2020-09-11] MEDS: ASCORBIC ACID 500 MG TABLET (FP) PO SCH (10:35)
[2020-09-11 12:22] LABS: BASO % 0.2 % (0-2.0); EOS % 0.2 % (0-4.5); HEMATOCRIT 40.4 % (35.4-49); HEMOGLOBIN 13.4 GM/dL (11.7-16.9); LYMPH % 4.3 % (8-40); MCH 29.9 pg (25.7-33.7); MCHC 33.1 g/dl (32.0-35.9); MEAN CELL VOLUME 90.3 fl (80-96); MEAN PLT VOLUME 8.3 fl (7.5-11.1); MONO % 5.2 % (3.8-10.2); NEUT % 90.1 % (42.8-82.8); PLATELET COUNT 263 K/MM3 (134-434); RBC 4.47 M/mm3 (4.00-5.60); RDW 15.9 % (11.9-15.9); WHITE BLOOD COUNT 13.6 K/mm3 (4.0-10.0)
[2020-09-11 12:39] LABS: POTASSIUM 3.8 mmol/L (3.5-5.1)
[2020-09-11 12:41] LABS: ALBUMIN 3.1 g/dl (3.4-5.0); BLOOD UREA NITROGEN 25.9 mg/dL (7-18); CALCIUM 8.2 mg/dL (8.5-10.1)
[2020-09-11 12:43] LABS: CREATININE 1.3 mg/dL (0.55-1.3)
[2020-09-11 12:45] LABS: PHOSPHOROUS 2.5 mg/dL (2.5-4.9)
[2020-09-11 12:46] LABS: BILIRUBIN,TOTAL 1.7 mg/dL (0.2-1); TOT PROT 6.3 g/dl (6.4-8.2)
[2020-09-12] MEDS ORDERED: DEXTROSE 5%-WATER - 50 ML IVPB ONE (08:54)
[2020-09-12] MEDS ORDERED: cefTRIAXone SODIUM 1 GM VIAL ONE (08:54)
[2020-09-12 09:56] LABS: MCH 30.3 pg (25.7-33.7); NEUT % 86.8 % (42.8-82.8)
[2020-09-12 10:01] LABS: BASO % 0.4 % (0-2.0); EOS % 0.7 % (0-4.5); HEMATOCRIT 41.4 % (35.4-49); LYMPH % 6.2 % (8-40); MCHC 33.7 g/dl (32.0-35.9); MEAN PLT VOLUME 8.7 fl (7.5-11.1); MONO % 5.9 % (3.8-10.2); PLATELET COUNT 254 K/MM3 (134-434); RBC 4.61 M/mm3 (4.00-5.60); RDW 15.9 % (11.9-15.9); WHITE BLOOD COUNT 11.7 K/mm3 (4.0-10.0)
[2020-09-12 10:30] LABS: BLOOD UREA NITROGEN 34.6 mg/dL (7-18); CALCIUM 8.5 mg/dL (8.5-10.1)
[2020-09-12 10:31] LABS: MAGNESIUM 2.1 mg/dL (1.8-2.4)
[2020-09-12] MEDS: POTASSIUM CHLORIDE 40 MEQ in AMINO ACIDS 4.25%/D5W 1,000 ML IVPB SCH ×2 (10:31→19:01)
[2020-09-12] MEDS: ENOXAPARIN NA (PORCINE) 30 MG/0.3 ML DISP.SYRIN SQ SCH (10:32)
[2020-09-12] MEDS: amLODIPine BESYLATE 10 MG TABLET (FP) PO SCH (10:32)
[2020-09-12] MEDS: CEFTRIAXONE 1 GM in DEXTROSE 5%-WATER - 50 ML IVPB SCH (10:32)
[2020-09-12 10:33] LABS: PHOSPHOROUS 2.2 mg/dL (2.5-4.9)
[2020-09-12 10:36] LABS: CREATININE 1.5 mg/dL (0.55-1.3)
[2020-09-12] MEDS: ASCORBIC ACID 500 MG TABLET (FP) PO SCH (11:06)
[2020-09-12] MEDS: ASPIRIN 81 MG CHEWABLE TABLETS PO SCH (11:06)
[2020-09-12] MEDS: FINASTERIDE 5 MG TABLET (FP) PO SCH (11:06)
[2020-09-12] MEDS: TAMSULOSIN HCL 0.4 MG CAP PO SCH (11:06)
[2020-09-12] MEDS: busPIRone HCL 5 MG TABLET PO SCH (11:06)
[2020-09-12] MEDS: ZINC SULFATE 220 MG CAPSULE (FP) PO SCH (11:06)
[2020-09-12] MEDS: CHOLECALCIFEROL (VIT D3) 1,000 UNIT (25 MCG) TABLET PO SCH (11:07)
[2020-09-12] MEDS ORDERED: POTASSIUM PHOSPHATE 15 MM in DEXTROSE 5%-WATER - 250 ML IVPB ONE (12:00)
[2020-09-13] MEDS: POTASSIUM CHLORIDE 40 MEQ in AMINO ACIDS 4.25%/D5W 1,000 ML IVPB SCH ×2 (05:36→09:39)
[2020-09-13] MEDS ORDERED: DEXTROSE 5%-WATER - 50 ML IVPB ONE (08:50)
[2020-09-13] MEDS ORDERED: cefTRIAXone SODIUM 1 GM VIAL ONE (08:50)
[2020-09-13] MEDS: CEFTRIAXONE 1 GM in DEXTROSE 5%-WATER - 50 ML IVPB SCH (09:38)
[2020-09-13] MEDS: ENOXAPARIN NA (PORCINE) 30 MG/0.3 ML DISP.SYRIN SQ SCH (09:38)
[2020-09-13] MEDS: TAMSULOSIN HCL 0.4 MG CAP PO SCH (09:39)
[2020-09-13] MEDS: amLODIPine BESYLATE 10 MG TABLET (FP) PO SCH (09:39)
[2020-09-13 12:03] LABS: BASO % 0.6 % (0-2.0); EOS % 1.6 % (0-4.5); HEMOGLOBIN 14.5 GM/dL (11.7-16.9); LYMPH % 8.7 % (8-40); MCHC 32.9 g/dl (32.0-35.9); MEAN CELL VOLUME 91.2 fl (80-96); MEAN PLT VOLUME 9.1 fl (7.5-11.1); MONO % 7.3 % (3.8-10.2); NEUT % 81.8 % (42.8-82.8); PLATELET COUNT 291 K/MM3 (134-434); RBC 4.83 M/mm3 (4.00-5.60); RDW 16.7 % (11.9-15.9); WHITE BLOOD COUNT 12.3 K/mm3 (4.0-10.0)
[2020-09-13] MEDS: CHOLECALCIFEROL (VIT D3) 1,000 UNIT (25 MCG) TABLET PO SCH (12:12)
[2020-09-13] MEDS: FAMOTIDINE 20 MG TABLET PO SCH (12:12)
[2020-09-13] MEDS: ZINC SULFATE 220 MG CAPSULE (FP) PO SCH (12:12)
[2020-09-13] MEDS: ASCORBIC ACID 500 MG TABLET (FP) PO SCH (12:12)
[2020-09-13] MEDS: FINASTERIDE 5 MG TABLET (FP) PO SCH (12:12)
[2020-09-13] MEDS: ASPIRIN 81 MG CHEWABLE TABLETS PO SCH (12:12)
[2020-09-13 12:19] LABS: POTASSIUM 4.5 mmol/L (3.5-5.1)
[2020-09-13 12:23] LABS: BLOOD UREA NITROGEN 39.9 mg/dL (7-18); CALCIUM 8.5 mg/dL (8.5-10.1); MAGNESIUM 2.1 mg/dL (1.8-2.4)
[2020-09-13 12:26] LABS: CREATININE 1.6 mg/dL (0.55-1.3)
[2020-09-13 12:27] LABS: PHOSPHOROUS 2.4 mg/dL (2.5-4.9)
[2020-09-13] MEDS ORDERED: SODIUM CHLORIDE 1,000 ML IV SCH (17:45)
[2020-09-13] MEDS ORDERED: MELATONIN 5 MG TABLETS PO ONE (23:45)
[2020-09-14] MEDS ORDERED: ACETAMINOPHEN 1000 MG/100 ML VIAL (NON FORMULARY) IVPB ONE (01:01)
[2020-09-14] MEDS ORDERED: cefTRIAXone SODIUM 1 GM VIAL ONE (09:49)
[2020-09-14] MEDS ORDERED: DEXTROSE 5%-WATER - 50 ML IVPB ONE (09:49)
[2020-09-14] MEDS: ENOXAPARIN NA (PORCINE) 30 MG/0.3 ML DISP.SYRIN SQ SCH (11:14)
[2020-09-14] MEDS: ZINC SULFATE 220 MG CAPSULE (FP) PO SCH (11:14)
[2020-09-14] MEDS: CHOLECALCIFEROL (VIT D3) 1,000 UNIT (25 MCG) TABLET PO SCH (11:14)
[2020-09-14] MEDS: ASCORBIC ACID 500 MG TABLET (FP) PO SCH (11:14)
[2020-09-14] MEDS: FINASTERIDE 5 MG TABLET (FP) PO SCH (11:14)
[2020-09-14] MEDS: TAMSULOSIN HCL 0.4 MG CAP PO SCH (11:14)
[2020-09-14] MEDS: amLODIPine BESYLATE 10 MG TABLET (FP) PO SCH (11:14)
[2020-09-14] MEDS: CEFTRIAXONE 1 GM in DEXTROSE 5%-WATER - 50 ML IVPB SCH (11:15)
[2020-09-14] MEDS: AMINO ACIDS/PROTEIN HYDROLYS 30 ML LIQUID.PKT PO SCH (18:19)
[2020-09-14] MEDS: POTASSIUM CHLORIDE 40 MEQ in AMINO ACIDS 4.25%/D5W 1,000 ML IVPB SCH (21:58)
[2020-09-15] MEDS ORDERED: DEXTROSE 5%-WATER - 50 ML IVPB ONE (09:31)
[2020-09-15] MEDS ORDERED: cefTRIAXone SODIUM 1 GM VIAL ONE (09:31)
[2020-09-15] MEDS: AMINO ACIDS/PROTEIN HYDROLYS 30 ML LIQUID.PKT PO SCH ×2 (10:11→18:33)
[2020-09-15] MEDS: ENOXAPARIN NA (PORCINE) 30 MG/0.3 ML DISP.SYRIN SQ SCH (10:23)
[2020-09-15] MEDS: amLODIPine BESYLATE 10 MG TABLET (FP) PO SCH (10:23)
[2020-09-15] MEDS: TAMSULOSIN HCL 0.4 MG CAP PO SCH (10:23)
[2020-09-15] MEDS: ZINC SULFATE 220 MG CAPSULE (FP) PO SCH (10:23)
[2020-09-15] MEDS: ASCORBIC ACID 500 MG TABLET (FP) PO SCH (10:23)
[2020-09-15] MEDS: FAMOTIDINE 20 MG TABLET PO SCH (10:24)
[2020-09-15] MEDS: CHOLECALCIFEROL (VIT D3) 1,000 UNIT (25 MCG) TABLET PO SCH (10:24)
[2020-09-15] MEDS: CEFTRIAXONE 1 GM in DEXTROSE 5%-WATER - 50 ML IVPB SCH (10:24)
[2020-09-15] MEDS: FINASTERIDE 5 MG TABLET (FP) PO SCH (10:24)
[2020-09-15 10:27] LABS: POTASSIUM 3.9 mmol/L (3.5-5.1)
[2020-09-15 10:28] LABS: CALCIUM 9.4 mg/dL (8.5-10.1)
[2020-09-15 10:32] LABS: CREATININE 0.5 mg/dL (0.55-1.3)
[2020-09-15 11:47] LABS: MAGNESIUM 1.6 mg/dL (1.8-2.4)
[2020-09-15 11:51] LABS: PHOSPHOROUS 4.1 mg/dL (2.5-4.9)
[2020-09-15] MEDS: POTASSIUM CHLORIDE 40 MEQ in AMINO ACIDS 4.25%/D5W 1,000 ML IVPB SCH ×2 (18:33→18:50)
[2020-09-16] MEDS: POTASSIUM CHLORIDE 40 MEQ in AMINO ACIDS 4.25%/D5W 1,000 ML IVPB SCH ×2 (01:00→13:44)
[2020-09-16] MEDS: AMINO ACIDS/PROTEIN HYDROLYS 30 ML LIQUID.PKT PO SCH ×2 (08:30→18:56)
[2020-09-16] MEDS ORDERED: cefTRIAXone SODIUM 1 GM VIAL ONE (09:22)
[2020-09-16] MEDS ORDERED: DEXTROSE 5%-WATER - 50 ML IVPB ONE (09:22)
[2020-09-16] MEDS: FINASTERIDE 5 MG TABLET (FP) PO SCH (11:04)
[2020-09-16] MEDS: amLODIPine BESYLATE 10 MG TABLET (FP) PO SCH (11:05)
[2020-09-16] MEDS: CEFTRIAXONE 1 GM in DEXTROSE 5%-WATER - 50 ML IVPB SCH (11:05)
[2020-09-16] MEDS: TAMSULOSIN HCL 0.4 MG CAP PO SCH (11:05)
[2020-09-16] MEDS: ASCORBIC ACID 500 MG TABLET (FP) PO SCH ×2 (11:06→11:27)
[2020-09-16] MEDS: ZINC SULFATE 220 MG CAPSULE (FP) PO SCH (11:06)
[2020-09-16] MEDS: ENOXAPARIN NA (PORCINE) 30 MG/0.3 ML DISP.SYRIN SQ SCH (11:06)
[2020-09-16] MEDS: CHOLECALCIFEROL (VIT D3) 1,000 UNIT (25 MCG) TABLET PO SCH ×2 (11:06→11:28)
[2020-09-16 11:22] LABS: BASO % 0.6 % (0-2.0); EOS % 1.6 % (0-4.5); HEMATOCRIT 46.7 % (35.4-49); HEMOGLOBIN 15.4 GM/dL (11.7-16.9); LYMPH % 6.9 % (8-40); MCH 30.6 pg (25.7-33.7); MEAN CELL VOLUME 92.8 fl (80-96); MONO % 8.8 % (3.8-10.2); NEUT % 82.1 % (42.8-82.8); RBC 5.03 M/mm3 (4.00-5.60); RDW 17.4 % (11.9-15.9); WHITE BLOOD COUNT 9.8 K/mm3 (4.0-10.0)
[2020-09-16 11:38] LABS: MEAN PLT VOLUME 9.2 fl (7.5-11.1); PLATELET COUNT 147 K/MM3 (134-434)
[2020-09-16 11:46] LABS: CALCIUM 8.9 mg/dL (8.5-10.1)
[2020-09-16 11:48] LABS: MAGNESIUM 2.4 mg/dL (1.8-2.4)
[2020-09-16 11:50] LABS: CREATININE 1.5 mg/dL (0.55-1.3); PHOSPHOROUS 2.4 mg/dL (2.5-4.9)
[2020-09-16 11:55] LABS: BLOOD UREA NITROGEN 41.6 mg/dL (7-18)
[2020-09-17] MEDS: POTASSIUM CHLORIDE 40 MEQ in AMINO ACIDS 4.25%/D5W 1,000 ML IVPB SCH (05:15)
[2020-09-17 08:40] LABS: POTASSIUM 5.3 mmol/L (3.5-5.1)
[2020-09-17 08:44] LABS: CALCIUM 8.8 mg/dL (8.5-10.1)
[2020-09-17 08:45] LABS: BLOOD UREA NITROGEN 44.5 mg/dL (7-18)
[2020-09-17 08:47] LABS: PHOSPHOROUS 2.1 mg/dL (2.5-4.9)
[2020-09-17 08:48] LABS: CREATININE 1.4 mg/dL (0.55-1.3)
[2020-09-17] MEDS: TAMSULOSIN HCL 0.4 MG CAP PO SCH (09:20)
[2020-09-17] MEDS: amLODIPine BESYLATE 10 MG TABLET (FP) PO SCH (09:21)
[2020-09-17] MEDS: FAMOTIDINE 20 MG TABLET PO SCH (09:21)
[2020-09-17] MEDS: ENOXAPARIN NA (PORCINE) 30 MG/0.3 ML DISP.SYRIN SQ SCH (09:21)
[2020-09-17] MEDS: FINASTERIDE 5 MG TABLET (FP) PO SCH (09:21)
[2020-09-17] MEDS: AMINO ACIDS/PROTEIN HYDROLYS 30 ML LIQUID.PKT PO SCH ×2 (09:22→16:35)
[2020-09-17] MEDS ORDERED: SODIUM PHOSPHATE - 0 MM in SODIUM CHLORIDE 250 ML IVPB ONE (09:42)
[2020-09-17] MEDS: ASCORBIC ACID 500 MG TABLET (FP) PO SCH (09:42)
[2020-09-17] MEDS: CHOLECALCIFEROL (VIT D3) 1,000 UNIT (25 MCG) TABLET PO SCH (09:42)
[2020-09-17] MEDS: ZINC SULFATE 220 MG CAPSULE (FP) PO SCH (09:42)
[2020-09-17] MEDS ORDERED: SODIUM PHOSPHATE - 15 MM in SODIUM CHLORIDE 250 ML IVPB ONE (10:30)
[2020-09-17] MEDS: AMINO ACIDS 4.25%/D5W 1,000 ML IV SCH (16:35)
[2020-09-18] MEDS: AMINO ACIDS 4.25%/D5W 1,000 ML IV SCH ×3 (03:08→15:56)
[2020-09-18 07:42] LABS: BASO % 1.1 % (0-2.0); EOS % 0.8 % (0-4.5); HEMATOCRIT 44.1 % (35.4-49); HEMOGLOBIN 14.8 GM/dL (11.7-16.9); LYMPH % 7.2 % (8-40); MCH 30.6 pg (25.7-33.7); MCHC 33.6 g/dl (32.0-35.9); MEAN CELL VOLUME 91.1 fl (80-96); MEAN PLT VOLUME 8.9 fl (7.5-11.1); MONO % 9.9 % (3.8-10.2); PLATELET COUNT 290 K/MM3 (134-434); RBC 4.84 M/mm3 (4.00-5.60); RDW 17.3 % (11.9-15.9); WHITE BLOOD COUNT 9.9 K/mm3 (4.0-10.0)
[2020-09-18 07:54] LABS: POTASSIUM 4.7 mmol/L (3.5-5.1)
[2020-09-18 07:58] LABS: CALCIUM 8.3 mg/dL (8.5-10.1)
[2020-09-18 07:59] LABS: BLOOD UREA NITROGEN 46.2 mg/dL (7-18); MAGNESIUM 2.1 mg/dL (1.8-2.4)
[2020-09-18 08:02] LABS: CREATININE 1.4 mg/dL (0.55-1.3); PHOSPHOROUS 2.5 mg/dL (2.5-4.9)
[2020-09-18] MEDS ORDERED: PT OWN MED DRAWER 7, Y5N ONE (09:54)
[2020-09-18] MEDS: FINASTERIDE 5 MG TABLET (FP) PO SCH (10:07)
[2020-09-18] MEDS: amLODIPine BESYLATE 10 MG TABLET (FP) PO SCH (10:07)
[2020-09-18] MEDS: CHOLECALCIFEROL (VIT D3) 1,000 UNIT (25 MCG) TABLET PO SCH (10:07)
[2020-09-18] MEDS: ASCORBIC ACID 500 MG TABLET (FP) PO SCH (10:07)
[2020-09-18] MEDS: ZINC SULFATE 220 MG CAPSULE (FP) PO SCH (10:07)
[2020-09-18] MEDS: TAMSULOSIN HCL 0.4 MG CAP PO SCH (10:07)
[2020-09-18] MEDS: ENOXAPARIN NA (PORCINE) 30 MG/0.3 ML DISP.SYRIN SQ SCH (10:07)
[2020-09-18] MEDS: AMINO ACIDS/PROTEIN HYDROLYS 30 ML LIQUID.PKT PO SCH ×2 (10:07→18:05)
[2020-09-18] MEDS: SODIUM BICARBONATE 650 MG TABLET PO SCH ×2 (11:00→21:26)
[2020-09-18] MEDS ORDERED: MORPHINE SULFATE 2 MG/ML VIAL IVPUSH ONE (12:33)
[2020-09-18] MEDS: busPIRone HCL 5 MG TABLET PO SCH (21:26)
[2020-09-19] MEDS: SODIUM BICARBONATE 650 MG TABLET PO SCH ×2 (09:36→22:53)
[2020-09-19] MEDS: amLODIPine BESYLATE 10 MG TABLET (FP) PO SCH (09:36)
[2020-09-19] MEDS: AMINO ACIDS/PROTEIN HYDROLYS 30 ML LIQUID.PKT PO SCH ×2 (09:36→20:37)
[2020-09-19] MEDS: TAMSULOSIN HCL 0.4 MG CAP PO SCH (09:36)
[2020-09-19] MEDS: busPIRone HCL 5 MG TABLET PO SCH ×2 (09:37→22:53)
[2020-09-19] MEDS: FAMOTIDINE 20 MG TABLET PO SCH (09:38)
[2020-09-19] MEDS: ENOXAPARIN NA (PORCINE) 30 MG/0.3 ML DISP.SYRIN SQ SCH (09:38)
[2020-09-19] MEDS: ZINC SULFATE 220 MG CAPSULE (FP) PO SCH (09:38)
[2020-09-19] MEDS: FINASTERIDE 5 MG TABLET (FP) PO SCH (09:39)
[2020-09-19 10:14] LABS: BASO % 0.6 % (0-2.0); EOS % 1.7 % (0-4.5); HEMATOCRIT 46.6 % (35.4-49); HEMOGLOBIN 15.2 GM/dL (11.7-16.9); LYMPH % 8.4 % (8-40); MCH 30.2 pg (25.7-33.7); MCHC 32.7 g/dl (32.0-35.9); MEAN CELL VOLUME 92.4 fl (80-96); MEAN PLT VOLUME 8.5 fl (7.5-11.1); MONO % 10.3 % (3.8-10.2); PLATELET COUNT 335 K/MM3 (134-434); RBC 5.05 M/mm3 (4.00-5.60); RDW 18.6 % (11.9-15.9)
[2020-09-19 10:40] LABS: POTASSIUM 4.6 mmol/L (3.5-5.1)
[2020-09-19 10:44] LABS: ALBUMIN 3.2 g/dl (3.4-5.0); BLOOD UREA NITROGEN 52.4 mg/dL (7-18); CALCIUM 8.7 mg/dL (8.5-10.1)
[2020-09-19 10:45] LABS: MAGNESIUM 2.3 mg/dL (1.8-2.4)
[2020-09-19 10:46] LABS: PHOSPHOROUS 2.7 mg/dL (2.5-4.9)
[2020-09-19 10:48] LABS: BILIRUBIN,TOTAL 2.9 mg/dL (0.2-1); CREATININE 1.5 mg/dL (0.55-1.3); TOT PROT 7.2 g/dl (6.4-8.2)
[2020-09-19] MEDS: AMINO ACIDS 4.25%/D5W 1,000 ML IV SCH (16:45)
[2020-09-19] MEDS: ASCORBIC ACID 500 MG TABLET (FP) PO SCH (20:36)
[2020-09-19] MEDS: CHOLECALCIFEROL (VIT D3) 1,000 UNIT (25 MCG) TABLET PO SCH (20:37)
[2020-09-20 08:18] LABS: BASO % 0.5 % (0-2.0); EOS % 0.7 % (0-4.5); HEMATOCRIT 42.6 % (35.4-49); HEMOGLOBIN 14.4 GM/dL (11.7-16.9); LYMPH % 4.8 % (8-40); MCH 30.8 pg (25.7-33.7); MCHC 33.9 g/dl (32.0-35.9); MEAN CELL VOLUME 90.7 fl (80-96); MEAN PLT VOLUME 8.7 fl (7.5-11.1); MONO % 7.4 % (3.8-10.2); NEUT % 86.6 % (42.8-82.8); PLATELET COUNT 319 K/MM3 (134-434); RDW 17.5 % (11.9-15.9)
[2020-09-20 09:29] LABS: ALBUMIN 2.8 g/dl (3.4-5.0); BILIRUBIN,TOTAL 3.5 mg/dL (0.2-1); BLOOD UREA NITROGEN 52.9 mg/dL (7-18); CALCIUM 8.2 mg/dL (8.5-10.1); CREATININE 1.5 mg/dL (0.55-1.3); MAGNESIUM 2.3 mg/dL (1.8-2.4); TOT PROT 7.3 g/dl (6.4-8.2)
[2020-09-20 09:47] LABS: POTASSIUM 8.1 mmol/L (3.5-5.1)
[2020-09-20] MEDS: ZINC SULFATE 220 MG CAPSULE (FP) PO SCH (10:11)
[2020-09-20] MEDS: AMINO ACIDS/PROTEIN HYDROLYS 30 ML LIQUID.PKT PO SCH ×2 (10:11→17:06)
[2020-09-20] MEDS: busPIRone HCL 5 MG TABLET PO SCH ×2 (10:11→21:11)
[2020-09-20] MEDS: ENOXAPARIN NA (PORCINE) 30 MG/0.3 ML DISP.SYRIN SQ SCH (10:11)
[2020-09-20] MEDS: TAMSULOSIN HCL 0.4 MG CAP PO SCH (10:11)
[2020-09-20] MEDS: FINASTERIDE 5 MG TABLET (FP) PO SCH (10:11)
[2020-09-20] MEDS: ASCORBIC ACID 500 MG TABLET (FP) PO SCH (10:12)
[2020-09-20] MEDS: SODIUM BICARBONATE 650 MG TABLET PO SCH ×2 (10:12→21:11)
[2020-09-20] MEDS: CHOLECALCIFEROL (VIT D3) 1,000 UNIT (25 MCG) TABLET PO SCH (10:12)
[2020-09-20] MEDS ORDERED: ACETAMINOPHEN 1000 MG/100 ML VIAL (NON FORMULARY) IVPB PRN (11:13)
[2020-09-20] MEDS: amLODIPine BESYLATE 10 MG TABLET (FP) PO SCH (11:19)
[2020-09-20 11:32] LABS: INR 1.26 (0.83-1.09); PROTHROMBIN TIME (PATIENT) 15.4 SEC (9.7-13.0)
[2020-09-20 11:47] LABS: POTASSIUM 4.5 mmol/L (3.5-5.1)
[2020-09-20 11:48] LABS: CALCIUM 8.8 mg/dL (8.5-10.1)
[2020-09-20 11:49] LABS: BLOOD UREA NITROGEN 52.7 mg/dL (7-18)
[2020-09-20 11:52] LABS: CREATININE 1.5 mg/dL (0.55-1.3)
[2020-09-20] MEDS: AMINO ACIDS 4.25%/D5W 1,000 ML IV SCH ×4 (12:49→18:53)
[2020-09-20] MEDS ORDERED: GLUCAGON 1 MG KIT IVPUSH ONE (13:20)
[2020-09-20] MEDS ORDERED: MIDAZOLAM HCL 2 MG/2 ML SINGLE DOSE VIAL IVPUSH ONE (16:04)
[2020-09-20] MEDS ORDERED: ACETAMINOPHEN 1000 MG/100 ML VIAL (NON FORMULARY) IVPB ONE (16:10)
[2020-09-20] MEDS ORDERED: THIAMINE HCL 200 MG/2 ML VIAL IVPB ONE ×2 (16:17→20:30)
[2020-09-20 22:26] LABS: EPI CELLS 6 /uL (0-25.1); HYALINE CASTS 2 /uL (0-3.1); URINE APPEARANCE TURBID; URINE BACTERIA 142 /uL (0-1359); URINE BILIRUBIN 1+ (NEGATIVE); URINE COLOR DK YELLOW; URINE GLUCOSE (UA) NEGATIVE (NEGATIVE); URINE KETONE TRACE (NEGATIVE); URINE LEUK ESTERASE 1+ (NEGATIVE); URINE NITRITE NEGATIVE (NEGATIVE); URINE PROTEIN 1+ (NEGATIVE); URINE RBC 4749 /uL (0-23.9); URINE WBC 34 /uL (0-25.8)
[2020-09-20 23:29] LABS: URINE CRYSTALS 0-3 /hpf
[2020-09-21 08:36] LABS: ALBUMIN 2.5 g/dl (3.4-5.0); BILIRUBIN,TOTAL 2.4 mg/dL (0.2-1); BLOOD UREA NITROGEN 51.1 mg/dL (7-18); CALCIUM 8.3 mg/dL (8.5-10.1); CREATININE 1.4 mg/dL (0.55-1.3); MAGNESIUM 2.2 mg/dL (1.8-2.4); PHOSPHOROUS 2.7 mg/dL (2.5-4.9); TOT PROT 5.9 g/dl (6.4-8.2)
[2020-09-21 08:38] LABS: BASO % 0.5 % (0-2.0); EOS % 1.3 % (0-4.5); HEMATOCRIT 46.6 % (35.4-49); HEMOGLOBIN 15.5 GM/dL (11.7-16.9); MCH 30.2 pg (25.7-33.7); MCHC 33.3 g/dl (32.0-35.9); MEAN CELL VOLUME 90.7 fl (80-96); MEAN PLT VOLUME 8.4 fl (7.5-11.1); MONO % 9.2 % (3.8-10.2); PLATELET COUNT 252 K/MM3 (134-434); RBC 5.14 M/mm3 (4.00-5.60); RDW 17.9 % (11.9-15.9); WHITE BLOOD COUNT 11.9 K/mm3 (4.0-10.0)
[2020-09-21] MEDS: FINASTERIDE 5 MG TABLET (FP) PO SCH (09:44)
[2020-09-21] MEDS: amLODIPine BESYLATE 10 MG TABLET (FP) PO SCH (09:44)
[2020-09-21] MEDS: TAMSULOSIN HCL 0.4 MG CAP PO SCH (09:44)
[2020-09-21] MEDS: AMINO ACIDS/PROTEIN HYDROLYS 30 ML LIQUID.PKT PO SCH ×2 (09:44→17:16)
[2020-09-21] MEDS: FAMOTIDINE 20 MG TABLET PO SCH (09:44)
[2020-09-21] MEDS: AMINO ACIDS 4.25%/D5W 1,000 ML IV SCH (09:44)
[2020-09-21] MEDS: ZINC SULFATE 220 MG CAPSULE (FP) PO SCH (09:44)
[2020-09-21] MEDS: busPIRone HCL 5 MG TABLET PO SCH ×2 (09:44→23:12)
[2020-09-21] MEDS: ASCORBIC ACID 500 MG TABLET (FP) PO SCH (09:45)
[2020-09-21] MEDS: SODIUM BICARBONATE 650 MG TABLET PO SCH ×2 (09:45→23:12)
[2020-09-21] MEDS: CHOLECALCIFEROL (VIT D3) 1,000 UNIT (25 MCG) TABLET PO SCH (09:45)
[2020-09-21] MEDS ORDERED: THIAMINE HCL 200 MG/2 ML VIAL IVPB ONE (10:00)
[2020-09-21 12:58] VITALS: BMI 19.5
[2020-09-21] MEDS ORDERED: ACETAMINOPHEN 1000 MG/100 ML VIAL (NON FORMULARY) IVPB PRN (15:30)
[2020-09-21] MEDS ORDERED: QUEtiapine FUMARATE 25 MG TABLET PO SCH ×2 (15:45→22:00)
[2020-09-21] MEDS ORDERED: QUEtiapine FUMARATE 25 MG TABLET GT SCH (15:46)
[2020-09-21] MEDS ORDERED: QUEtiapine FUMARATE 25 MG TABLET PO ONE (17:07)
[2020-09-21] MEDS: ENOXAPARIN NA (PORCINE) 40 MG/0.4 ML DISP.SYRIN SQ SCH (17:17)
[2020-09-21] MEDS ORDERED: ENOXAPARIN NA (PORCINE) 40 MG/0.4 ML DISP.SYRIN SQ SCH (18:00)
[2020-09-21] MEDS: QUEtiapine FUMARATE 25 MG TABLET GT SCH (23:11)
[2020-09-21] MEDS: THIAMINE HCL 100 MG TABLET (FP) PO SCH (23:12)
[2020-09-22 07:36] LABS: BASO % 0.7 % (0-2.0); EOS % 0.8 % (0-4.5); HEMATOCRIT 45.4 % (35.4-49); HEMOGLOBIN 15.4 GM/dL (11.7-16.9); LYMPH % 7.9 % (8-40); MCH 30.6 pg (25.7-33.7); MCHC 33.8 g/dl (32.0-35.9); MEAN CELL VOLUME 90.5 fl (80-96); MEAN PLT VOLUME 8.3 fl (7.5-11.1); MONO % 9.9 % (3.8-10.2); NEUT % 80.7 % (42.8-82.8); PLATELET COUNT 339 K/MM3 (134-434); RBC 5.02 M/mm3 (4.00-5.60); RDW 18.1 % (11.9-15.9); WHITE BLOOD COUNT 10.4 K/mm3 (4.0-10.0)
[2020-09-22 07:54] LABS: POTASSIUM 4.5 mmol/L (3.5-5.1)
[2020-09-22 07:57] LABS: ALBUMIN 2.9 g/dl (3.4-5.0)
[2020-09-22 07:58] LABS: BLOOD UREA NITROGEN 51.1 mg/dL (7-18); MAGNESIUM 2.4 mg/dL (1.8-2.4)
[2020-09-22 08:00] LABS: CALCIUM 8.3 mg/dL (8.5-10.1)
[2020-09-22 08:01] LABS: PHOSPHOROUS 3.1 mg/dL (2.5-4.9)
[2020-09-22 08:02] LABS: BILIRUBIN,TOTAL 2.5 mg/dL (0.2-1)
[2020-09-22 08:03] LABS: CREATININE 1.5 mg/dL (0.55-1.3); TOT PROT 6.6 g/dl (6.4-8.2)
[2020-09-22] MEDS: TAMSULOSIN HCL 0.4 MG CAP PO SCH (09:17)
[2020-09-22] MEDS ORDERED: PT OWN MED DRAWER 7, Y5N ONE (10:53)
[2020-09-22] MEDS: SODIUM BICARBONATE 650 MG TABLET PO SCH ×2 (11:54→20:59)
[2020-09-22] MEDS: busPIRone HCL 5 MG TABLET PO SCH ×2 (11:54→20:59)
[2020-09-22] MEDS: CHOLECALCIFEROL (VIT D3) 1,000 UNIT (25 MCG) TABLET PO SCH (11:54)
[2020-09-22] MEDS: FINASTERIDE 5 MG TABLET (FP) PO SCH (11:55)
[2020-09-22] MEDS: amLODIPine BESYLATE 10 MG TABLET (FP) PO SCH (11:55)
[2020-09-22] MEDS: ZINC SULFATE 220 MG CAPSULE (FP) PO SCH (11:55)
[2020-09-22] MEDS: ASCORBIC ACID 500 MG TABLET (FP) PO SCH (11:55)
[2020-09-22] MEDS: THIAMINE HCL 100 MG TABLET (FP) PO SCH (11:55)
[2020-09-22] MEDS: AMINO ACIDS/PROTEIN HYDROLYS 30 ML LIQUID.PKT PO SCH ×2 (11:56→18:41)
[2020-09-22] MEDS ORDERED: QUEtiapine FUMARATE 25 MG TABLET PO SCH ×2 (12:45→22:00)
[2020-09-22] MEDS ORDERED: QUEtiapine FUMARATE 25 MG TABLET GT SCH ×3 (13:25→23:57)
[2020-09-22] MEDS ORDERED: ENOXAPARIN NA (PORCINE) 30 MG/0.3 ML DISP.SYRIN SQ SCH (13:47)
[2020-09-22] MEDS: ENOXAPARIN NA (PORCINE) 40 MG/0.4 ML DISP.SYRIN SQ SCH (13:48)
[2020-09-22] MEDS: ENOXAPARIN NA (PORCINE) 30 MG/0.3 ML DISP.SYRIN SQ SCH (18:40)
[2020-09-22] MEDS: QUEtiapine FUMARATE 25 MG TABLET GT SCH (22:25)
[2020-09-23] MEDS ORDERED: ACETAMINOPHEN 650 MG/20.3 ML ORAL SOLUTION (CUPS) PEG ONE (02:00)
[2020-09-23] MEDS: SODIUM BICARBONATE 650 MG TABLET PO SCH ×3 (06:17→22:44)
[2020-09-23] MEDS: CHOLECALCIFEROL (VIT D3) 1,000 UNIT (25 MCG) TABLET PO SCH (09:16)
[2020-09-23] MEDS: AMINO ACIDS/PROTEIN HYDROLYS 30 ML LIQUID.PKT PO SCH ×2 (09:16→17:07)
[2020-09-23] MEDS: ENOXAPARIN NA (PORCINE) 30 MG/0.3 ML DISP.SYRIN SQ SCH (09:16)
[2020-09-23] MEDS: TAMSULOSIN HCL 0.4 MG CAP PO SCH (09:17)
[2020-09-23] MEDS: THIAMINE HCL 100 MG TABLET (FP) PO SCH (09:17)
[2020-09-23] MEDS: FINASTERIDE 5 MG TABLET (FP) PO SCH (09:17)
[2020-09-23] MEDS: ASCORBIC ACID 500 MG TABLET (FP) PO SCH (09:17)
[2020-09-23] MEDS: busPIRone HCL 5 MG TABLET PO SCH ×2 (09:17→22:44)
[2020-09-23] MEDS: ZINC SULFATE 220 MG CAPSULE (FP) PO SCH (09:17)
[2020-09-23] MEDS: amLODIPine BESYLATE 10 MG TABLET (FP) PO SCH (09:17)
[2020-09-23] MEDS: FAMOTIDINE 20 MG TABLET PO SCH (09:17)
[2020-09-23] MEDS ORDERED: QUEtiapine FUMARATE 25 MG TABLET PO SCH (10:00)
[2020-09-23 10:07] LABS: BASO % 0.7 % (0-2.0); EOS % 1.5 % (0-4.5); HEMATOCRIT 41.1 % (35.4-49); HEMOGLOBIN 14.1 GM/dL (11.7-16.9); LYMPH % 7.3 % (8-40); MCH 30.6 pg (25.7-33.7); MCHC 34.3 g/dl (32.0-35.9); MEAN CELL VOLUME 89.3 fl (80-96); MEAN PLT VOLUME 8.6 fl (7.5-11.1); MONO % 8.4 % (3.8-10.2); NEUT % 82.1 % (42.8-82.8); PLATELET COUNT 268 K/MM3 (134-434); RDW 17.4 % (11.9-15.9)
[2020-09-23 10:44] LABS: CALCIUM 8.2 mg/dL (8.5-10.1)
[2020-09-23 10:45] LABS: ALBUMIN 2.7 g/dl (3.4-5.0)
[2020-09-23 10:48] LABS: CREATININE 1.4 mg/dL (0.55-1.3)
[2020-09-23 10:50] LABS: BILIRUBIN,TOTAL 2.3 mg/dL (0.2-1); TOT PROT 6.1 g/dl (6.4-8.2)
[2020-09-23 11:12] LABS: POTASSIUM 3.9 mmol/L (3.5-5.1)
[2020-09-23] MEDS ORDERED: ACETAMINOPHEN 325 MG TABLET (FP) PO PRN (15:00)
[2020-09-23] MEDS: ACETAMINOPHEN 325 MG TABLET (FP) PO SCH ×2 (17:07→22:44)
[2020-09-23] MEDS ORDERED: LORazepam 2 MG/ML SDV VIAL IVPUSH ONE (19:37)
[2020-09-23 20:26] LABS: INR 1.28 (0.83-1.09); PROTHROMBIN TIME (PATIENT) 15.4 SEC (9.7-13.0)
[2020-09-23 20:29] LABS: ACTIVATED PTT 36.4 SECONDS (25.2-36.5)
[2020-09-24] MEDS: ACETAMINOPHEN 325 MG TABLET (FP) PO SCH (04:15)
[2020-09-24] MEDS: SODIUM BICARBONATE 650 MG TABLET PO SCH ×3 (05:17→22:35)
[2020-09-24] MEDS: AMINO ACIDS/PROTEIN HYDROLYS 30 ML LIQUID.PKT PO SCH ×2 (09:28→17:26)
[2020-09-24] MEDS: ASCORBIC ACID 500 MG TABLET (FP) PO SCH (09:28)
[2020-09-24] MEDS: FINASTERIDE 5 MG TABLET (FP) PO SCH (09:28)
[2020-09-24] MEDS: TAMSULOSIN HCL 0.4 MG CAP PO SCH (09:28)
[2020-09-24] MEDS: ZINC SULFATE 220 MG CAPSULE (FP) PO SCH (09:28)
[2020-09-24] MEDS: amLODIPine BESYLATE 10 MG TABLET (FP) PO SCH (09:29)
[2020-09-24] MEDS: CHOLECALCIFEROL (VIT D3) 1,000 UNIT (25 MCG) TABLET PO SCH (09:29)
[2020-09-24] MEDS: THIAMINE HCL 100 MG TABLET (FP) PO SCH (09:29)
[2020-09-24] MEDS: busPIRone HCL 5 MG TABLET PO SCH ×2 (09:29→22:35)
[2020-09-24] MEDS: ENOXAPARIN NA (PORCINE) 30 MG/0.3 ML DISP.SYRIN SQ SCH (09:30)
[2020-09-24 09:44] LABS: BASO % 0.9 % (0-2.0); HEMATOCRIT 39.2 % (35.4-49); HEMOGLOBIN 13.4 GM/dL (11.7-16.9); LYMPH % 8.6 % (8-40); MCH 30.4 pg (25.7-33.7); MCHC 34.3 g/dl (32.0-35.9); MEAN CELL VOLUME 88.5 fl (80-96); MEAN PLT VOLUME 8.4 fl (7.5-11.1); NEUT % 77.5 % (42.8-82.8); PLATELET COUNT 288 K/MM3 (134-434); RBC 4.42 M/mm3 (4.00-5.60); RDW 17.8 % (11.9-15.9); WHITE BLOOD COUNT 8.2 K/mm3 (4.0-10.0)
[2020-09-24 10:03] LABS: CALCIUM 7.9 mg/dL (8.5-10.1)
[2020-09-24 10:04] LABS: ALBUMIN 2.5 g/dl (3.4-5.0); BLOOD UREA NITROGEN 42.6 mg/dL (7-18); MAGNESIUM 2.4 mg/dL (1.8-2.4)
[2020-09-24 10:06] LABS: CREATININE 1.3 mg/dL (0.55-1.3)
[2020-09-24 10:07] LABS: PHOSPHOROUS 3.2 mg/dL (2.5-4.9)
[2020-09-24 10:08] LABS: BILIRUBIN,TOTAL 1.5 mg/dL (0.2-1); TOT PROT 5.9 g/dl (6.4-8.2)
[2020-09-24] MEDS ORDERED: ALPRAZolam 0.25 MG TABLET PO ONE (10:48)
[2020-09-24] MEDS: POLYETHYLENE GLYCOL 3350 119 GM BTL PO SCH (17:26)
[2020-09-24] MEDS: DOCUSATE NA 100 MG/10 ML UNIT-DOSE CUPS PO PRN (22:35)
[2020-09-25] MEDS: SODIUM BICARBONATE 650 MG TABLET PO SCH ×3 (05:19→21:36)
[2020-09-25 08:06] LABS: EOS % 0.9 % (0-4.5); HEMATOCRIT 41.4 % (35.4-49); HEMOGLOBIN 13.9 GM/dL (11.7-16.9); LYMPH % 7.5 % (8-40); MCH 30.3 pg (25.7-33.7); MCHC 33.7 g/dl (32.0-35.9); MEAN CELL VOLUME 89.9 fl (80-96); MEAN PLT VOLUME 8.4 fl (7.5-11.1); MONO % 5.7 % (3.8-10.2); NEUT % 84.9 % (42.8-82.8); PLATELET COUNT 306 K/MM3 (134-434); RDW 17.4 % (11.9-15.9); WHITE BLOOD COUNT 10.1 K/mm3 (4.0-10.0)
[2020-09-25] MEDS: AMINO ACIDS/PROTEIN HYDROLYS 30 ML LIQUID.PKT PO SCH ×2 (10:28→17:06)
[2020-09-25] MEDS: TAMSULOSIN HCL 0.4 MG CAP PO SCH (10:28)
[2020-09-25] MEDS: busPIRone HCL 5 MG TABLET PO SCH ×2 (10:29→21:36)
[2020-09-25] MEDS: ASCORBIC ACID 500 MG TABLET (FP) PO SCH (10:29)
[2020-09-25] MEDS: amLODIPine BESYLATE 10 MG TABLET (FP) PO SCH (10:29)
[2020-09-25] MEDS: ZINC SULFATE 220 MG CAPSULE (FP) PO SCH (10:29)
[2020-09-25] MEDS: FAMOTIDINE 20 MG TABLET PO SCH (10:29)
[2020-09-25] MEDS: ENOXAPARIN NA (PORCINE) 30 MG/0.3 ML DISP.SYRIN SQ SCH (10:29)
[2020-09-25] MEDS: POLYETHYLENE GLYCOL 3350 119 GM BTL PO SCH (10:29)
[2020-09-25] MEDS: THIAMINE HCL 100 MG TABLET (FP) PO SCH (10:29)
[2020-09-25] MEDS: FINASTERIDE 5 MG TABLET (FP) PO SCH (10:29)
[2020-09-25] MEDS: DOCUSATE NA 100 MG/10 ML UNIT-DOSE CUPS PO PRN (10:30)
[2020-09-25] MEDS: CHOLECALCIFEROL (VIT D3) 1,000 UNIT (25 MCG) TABLET PO SCH (10:30)
[2020-09-25] MEDS: ALPRAZolam 0.25 MG TABLET PO PRN ×2 (11:58→21:35)
[2020-09-25 13:15] LABS: ALBUMIN 2.9 g/dl (3.4-5.0); BILIRUBIN,TOTAL 2.1 mg/dL (0.2-1); BLOOD UREA NITROGEN 39.6 mg/dL (7-18); CALCIUM 8.3 mg/dL (8.5-10.1); CREATININE 1.5 mg/dL (0.55-1.3); POTASSIUM 4.2 mmol/L (3.5-5.1); TOT PROT 6.5 g/dl (6.4-8.2)
[2020-09-26] MEDS: SODIUM BICARBONATE 650 MG TABLET PO SCH (05:43)
[2020-09-26] MEDS: ZINC SULFATE 220 MG CAPSULE (FP) PO SCH (10:42)
[2020-09-26] MEDS: AMINO ACIDS/PROTEIN HYDROLYS 30 ML LIQUID.PKT PO SCH (10:42)
[2020-09-26] MEDS: FINASTERIDE 5 MG TABLET (FP) PO SCH (10:42)
[2020-09-26] MEDS: ASCORBIC ACID 500 MG TABLET (FP) PO SCH (10:43)
[2020-09-26] MEDS: busPIRone HCL 5 MG TABLET PO SCH (10:43)
[2020-09-26] MEDS: POLYETHYLENE GLYCOL 3350 119 GM BTL PO SCH (10:43)
[2020-09-26] MEDS: CHOLECALCIFEROL (VIT D3) 1,000 UNIT (25 MCG) TABLET PO SCH (10:43)
[2020-09-26] MEDS: TAMSULOSIN HCL 0.4 MG CAP PO SCH (10:43)
[2020-09-26] MEDS: ENOXAPARIN NA (PORCINE) 30 MG/0.3 ML DISP.SYRIN SQ SCH (10:43)
[2020-09-26] MEDS: THIAMINE HCL 100 MG TABLET (FP) PO SCH (10:43)
[2020-09-26] MEDS: amLODIPine BESYLATE 10 MG TABLET (FP) PO SCH (10:43)
[2020-09-26] MEDS: ALPRAZolam 0.25 MG TABLET PO PRN (10:44)
[2020-09-26 12:26] VITALS: BP 119/55; PULSE 71; TEMP 97.4
== END 2020-09-26 14:26 | DRG 698 ==
LOC: JER 16:57 → JERBED 09-03 03:15 → J7W 09-03 15:19
PROVIDERS: ADMIT Hospitalist; ATTEND Internal Medicine
PROC: 0DH63UZ Insertion of Feeding Device into Stomach, Percutaneous Approach (ICD-10-PCS; principal; 2020-09-20)
PROC: 3E0G76Z Introduction of Nutritional Substance into Upper GI, Via Natural or Artificial Opening (ICD-10-PCS; 2020-09-21)
DX: T83.511A Infection and inflammatory reaction due to indwelling urethral catheter, initial encounter (principal); U07.1 COVID-19; G93.41 Metabolic encephalopathy; E46 Unspecified protein-calorie malnutrition; I50.32 Chronic diastolic (congestive) heart failure; I13.0 Hypertensive heart and chronic kidney disease with heart failure and stage 1 through stage 4 chronic kidney disease, or unspecified chronic kidney disease; N17.9 Acute kidney failure, unspecified; E87.0 Hyperosmolality and hypernatremia; E87.2 Acidosis; N30.00 Acute cystitis without hematuria; Z68.1 Body mass index [BMI] 19.9 or less, adult; N18.30 Chronic kidney disease, stage 3 unspecified; F03.90 Unspecified dementia, unspecified severity, without behavioral disturbance, psychotic disturbance, mood disturbance, and anxiety; R62.7 Adult failure to thrive; R31.0 Gross hematuria; I44.0 Atrioventricular block, first degree; N40.0 Benign prostatic hyperplasia without lower urinary tract symptoms; Y84.6 Urinary catheterization as the cause of abnormal reaction of the patient, or of later complication, without mention of misadventure at the time of the procedure; R94.31 Abnormal electrocardiogram [ECG] [EKG]; E86.0 Dehydration; E78.5 Hyperlipidemia, unspecified
CPT/HCPCS: 36415; 49440; 70450-TC; 71045-TC-FY; 74018-TC-FY; 76775-TC; 80048; 80053; 81003; 82040; 82565; 82728; 83605; 83615; 83735; 84100; 84156; 84300; 84436; 84443; 84484; 84540; 85025; 85027; 85379; 85610; 85730; 86140; 86769; 87040; 87086; 87186; 87205; 93005; 93010; 94761; 97116-GP; 97161-GP; 99285-25; C9803; J0131; U0003